=== PATIENT | male | born 1945 | race Caucasian/White ===

== ENCOUNTER → 2024-07-22 10:48 | Outpatient (CLI) | payer MEDICARE, MEDICAID, SELFPAY ==
--- NOTE | 2024-07-22 10:56 | DI.RAD.S_ITS ---
PROCEDURE: XR CHEST 2V INDICATIONS: COUGH TECHNIQUE: 2 views of the chest were acquired. COMPARISON: None. FINDINGS: Surgical changes and devices: None. Lungs and pleura: Lungs are clear. No pleural effusions or pneumothorax. Peribronchial cuffing. Mediastinum: Mediastinal contours are normal. Heart size is normal. Bones and chest wall: No suspicious bony abnormalities. Soft tissues appear unremarkable. IMPRESSION: Peribronchial cuffing, typically indicating infectious or inflammatory bronchitis. Dictated by: Rob Rey M.D. on 07/22/2024 at 13:07 Approved by: Rob Rey M.D. on 07/22/2024 at 13:07
== END ==
PROVIDERS: PCP Family Medicine; Referring Provider Registered Nurse; Visit Provider Registered Nurse
DX: J18.9 Pneumonia, unspecified organism (principal); J69.0 Pneumonitis due to inhalation of food and vomit; J96.01 Acute respiratory failure with hypoxia; R05.9 Cough, unspecified
CPT/HCPCS: 71046

== ENCOUNTER 2024-08-06 19:26 | Inpatient (IN) | payer MEDICARE, MEDICAID, SELFPAY ==
[2024-08-06] VITALS (67 sets, daily range): BP systolic 56–203; BP diastolic 36–127; PULSE 109–166; RESP 15–22; TEMP 36.6–38.1; O2SAT 90–99
--- NOTE | 2024-08-06 | DI.RAD.S_ITS ---
PROCEDURE: XR CHEST 1V INDICATIONS: NG Tube Placement TECHNIQUE: One view of the chest was acquired. COMPARISON: [facility], CR, XR CHEST 1V, 08/06/2024, 19:20. [facility], CR, XR CHEST 2V, 07/22/2024, 10:58. FINDINGS AND IMPRESSION: Enteric tube tip terminates near the gastroesophageal junction, consider further advancement ET tube tip terminates in the mid trachea. Bibasilar pulmonary consolidations. Dictated by: Kadeem Minor M.D. on 08/06/2024 at 21:33 Approved by: Kadeem Minor M.D. on 08/06/2024 at 21:34
--- NOTE | 2024-08-06 19:30 | ED.GENADULT ---
HPI - General Adult General Chief complaint: Unresponsive Stated complaint: Unresponsive Time Seen by Provider: 08/06/24 19:30 History of Present Illness HPI narrative: 78-year-old male arrived by EMS from [facility] where he was found by staff to be unresponsive, hypoxic, hypotensive, hypopnea, no CPR bystander was in progress, full code status, EMS found him to be hypoxic and hypotensive and in atrial fibrillation, epinephrine started through right-sided IO line, initial blood pressure 77/59, repeat blood pressure 107/62, atrial fibrillation 110 on the monitor noted, intubated x1 attempt 7.5 ETT successfully, 98% satsstats, arrival intubated, no post intubation sedation thus far. No compressions thus far. Pressor infusion through right IO line. Related Data Previous Rx's Medication Instructions Recorded divalproex 125 mg tablet,delayed 375 mg (3 x 125 mg) PO BID #180 06/23/22 release (Depakote) tabs acetaminophen 325 mg tablet 650 mg (2 x 325 mg) PO QID #240 06/27/23 tabs allopurinol 100 mg tablet 100 mg PO DAILY #30 tabs 06/27/23 apixaban 5 mg tablet (Eliquis) See Rx Instructions .Route 06/27/23 .COMPLEX #60 ea loratadine 10 mg tablet 10 mg PO DAILY #30 tabs 06/27/23 metoprolol tartrate 25 mg tablet 25 mg PO BID #60 tabs 06/27/23 quetiapine 100 mg tablet See Rx Instructions PO .COMPLEX 06/27/23 #120 tabs tamsulosin 0.4 mg capsule (Flomax) 0.8 mg (2 x 0.4 mg) PO BEDTIME #60 06/27/23 caps trazodone 50 mg tablet 50 mg PO BEDTIME #30 tabs 06/27/23 diltiazem HCl 30 mg tablet 30 mg PO QID #120 tabs 07/08/23 polyethylene glycol 3350 17 17 g PO DAILY PRN constipation 06/25/24 gram/dose oral powder #510 grams Allergies Allergy/AdvReac Type Severity Reaction Status Date / Time No Known Drug Allergies Allergy Verified 10/31/23 11:26 Patient History Medical History Schizophrenia in full remission with history of multiple episodes Surgical History Anesthesia Status post hernia repair (~2006) Status post appendectomy Family History Father History of heart disease Stroke Mother History of heart disease Stroke Grandfather History of heart disease Grandmother Stroke Grandfather History of heart disease Grandmother Cancer Social History household members: spouse Smoking Status: Never smoker alcohol intake: never Smoking Status: Never smoker Exam Initial Vital Signs Initial Vital Signs: Vital Signs Pulse Rate 122 H 08/06/24 19:28 intubated on arrival by EMS HENMO Head: normocephalic and atraumatic Face and sinus: face symmetric Eyes Pupils: PERRL Neck Neck: normal visual inspection and trachea midline Other: orotracheal ETT in place Chest Chest: normal inspection of the chest Resp Auscultation: no wheezes Other: breath sounds equal with bag mask ventilation thru prehospital orotracheal ETT Cardio Rate: tachycardic GI Inspection: non-distended Auscultation: normal bowel sounds Other: no abdominal bruising or distension Skin General: no rashes or lesions noted and No petechiae Extrem General: no pedal edema Other: GCS 3 on arrival, intubated, after prehospital Ketamine/Gaurav, paralytic in effect, no posturing, pupils round equal Procedures Central Line Placement Right Femoral: Patient Placed on Monitor/Pulse Ox: Yes MD Prep: mask, gown and gloves Central Line Prep: Povidone-Iodine 1% Ultrasound Used for Placement: Yes Central Line Lumen Inserted: triple Post Procedure: sutured in place, all ports aspirated, flushed, capped and sterile dressing applied Patient Tolerated Procedure: Well Complications: none Course Orders Ordered: Chlorhexidine Gluconate (Chlorhexidine Gluconate 15 Ml Cup) 15 ml PO 1018 [facility] Last Admin: 08/07/24 10:31 Dose: 15 ml Documented By: GISSELLE Enoxaparin Sodium (Enoxaparin 100 Mg/Ml Syringe) 95 mg SUBCUT BID [facility] Last Admin: 08/07/24 10:14 Dose: 95 mg Documented By: GISSELLE Fentanyl (Fentanyl 100 Mcg/2 Ml Inj) 50 mcg IV Q1H PRN PRN Reason: Pain, Moderate (4-6) Heparin Sodium (Porcine) (Heparin Flush (Cl/Picc/Mid-Line) 50 Unit/5 Ml Syringe) 50 unit IV PRN PRN PRN Reason: Flush Hydrocortisone (Hydrocortisone 100 Mg/2 Ml Vial) 50 mg IV Q6HR ZEESHAN Last Admin: 08/07/24 12:45 Dose: 50 mg NOREPINEPHRINE BITARTRATE/D5W (Levophed) 4 mg in 250 mls @ 35.55 mls/hr IV TITRATE ZEESHAN; Protocol Last Titration: 08/07/24 12:00 Dose: 0.15 mcg/kg/min, 53.326 mls/hr Documented By: Admin: 08/07/24 10:18 Dose: 0.1 mcg/kg/min, 35.55 mls/hr Documented By: Titration: 08/07/24 09:26 Dose: Infused Documented By: Titration: 08/07/24 08:38 Dose: 0.1 mcg/kg/min, 35.55 mls/hr Documented By: Titration: 08/07/24 07:00 Dose: 0.15 mcg/kg/min, 53.326 mls/hr Documented By: Titration: 08/07/24 06:45 Dose: 0 mcg/kg/min, 0 mls/hr Documented By: Admin: 08/07/24 04:31 Dose: 0.17 mcg/kg/min, 60.436 mls/hr Documented By: Titration: 08/07/24 04:25 Dose: Infused Documented By: Titration: 08/07/24 03:20 Dose: 0.17 mcg/kg/min, 60.436 mls/hr Documented By: Titration: 08/07/24 03:00 Dose: 0.2 mcg/kg/min, 71.101 mls/hr Documented By: Titration: 08/07/24 00:41 Dose: 0.15 mcg/kg/min, 53.326 mls/hr Documented By: Admin: 08/06/24 23:37 Dose: 0.1 mcg/kg/min, 35.55 mls/hr Documented By: Titration: 08/06/24 23:37 Dose: Infused Documented By: Titration: 08/06/24 22:55 Dose: 0.1 mcg/kg/min, 35.55 mls/hr Documented By: Titration: 08/06/24 22:33 Dose: 0.2 mcg/kg/min, 71.101 mls/hr Documented By: Titration: 08/06/24 22:12 Dose: 0.4 mcg/kg/min, 142.202 mls/hr Documented By: Titration: 08/06/24 22:05 Dose: 0.3 mcg/kg/min, 106.651 mls/hr Documented By: Titration: 08/06/24 22:00 Dose: 0.2 mcg/kg/min, 71.101 mls/hr Documented By: Titration: 08/06/24 21:32 Dose: 0 mcg/kg/min, 0 mls/hr Documented By: Titration: 08/06/24 21:00 Dose: 0.1 mcg/kg/min, 35.55 mls/hr Documented By: Titration: 08/06/24 20:45 Dose: 0.2 mcg/kg/min, 71.101 mls/hr Documented By: Titration: 08/06/24 20:40 Dose: 0.3 mcg/kg/min, 106.651 mls/hr Documented By: Titration: 08/06/24 20:09 Dose: 0.1 mcg/kg/min, 35.55 mls/hr Documented By: Titration: 08/06/24 19:50 Dose: 0.5 mcg/kg/min, 177.752 mls/hr Documented By: Admin: 08/06/24 19:45 Dose: 0.1 mcg/kg/min, 35.55 mls/hr Documented By: KH Ketamine HCl 100 mg/ Sodium (Chloride) 102 mls @ 6.12 mls/hr IV TITRATE PRN; Protocol PRN Reason: post intubat Propofol (Diprivan) 1,000 mg in 100 mls @ 2.844 mls/hr IV TITRATE ZEESHAN; Protocol Last Titration: 08/07/24 01:10 Dose: 10 mcg/kg/min, 5.688 mls/hr Documented By: Admin: 08/07/24 00:17 Dose: 5 mcg/kg/min, 2.844 mls/hr Documented By: CHRISTY Cefepime HCl 2 gm/ Sodium (Chloride) 100 mls @ 200 mls/hr IV Q12H [facility] Last Admin: 08/07/24 10:13 Dose: 200 mls/hr Documented By: GISSELLE Sodium Chloride (Normal Saline 0.9%) 1,000 mls @ 100 mls/hr IV CONT [facility] Last Admin: 08/07/24 08:29 Dose: 100 mls/hr Documented By: GISSELLE Vancomycin HCl (Vancomycin) 1,250 mg in 250 mls @ 250 mls/hr IV Q24H ZEESHAN Acetaminophen (Ofirmev) 1,000 mg in 100 mls @ 400 mls/hr IV Q6H PRN PRN Reason: Fever/Mild Pain (1-3) Last Admin: 08/07/24 10:29 Dose: 400 mls/hr Documented By: GISSELLE Dextrose (D10w) 100 mls @ 1,200 mls/hr IV PRN PRN PRN Reason: Hypoglycemia Thiamine HCl 200 mg/ Sodium (Chloride) 102 mls @ 408 mls/hr IV DAILY [facility] Last Admin: 08/07/24 12:45 Dose: 408 mls/hr Insulin Human Lispro (Insulin Lispro 100 Unit/Ml 3ml Vial) 0 unit SUBCUT Q6H [facility]; Protocol Last Admin: 08/07/24 10:35 Dose: 1 unit Documented By: GISSELLE Co-signed By: JJY Naloxone HCl (Naloxone 0.4 Mg/Ml Vial) 0.2 mg IV Q2MIN PRN PRN Reason: Opiate Reversal Pantoprazole Sodium (Pantoprazole 40 Mg Vial) 40 mg IV DAILY [facility] Last Admin: 08/07/24 10:14 Dose: 40 mg Documented By: GISSELLE Vancomycin HCl (Vancomycin Per Pharmacy) 1 request MISC NOW PRN PRN Reason: pneumonia Discontinued Medications Hydrocortisone (Hydrocortisone 100 Mg/2 Ml Vial) 100 mg IV NOW ONE Stop: 08/06/24 22:06 Last Admin: 08/06/24 22:17 Dose: 100 mg Documented By: CHRISTY Ceftriaxone Sodium 2,000 mg/ (Sodium Chloride) 100 mls @ 200 mls/hr IV NOW ONE Stop: 08/06/24 20:02 Last Infusion: 08/06/24 21:15 Dose: Infused Documented By: Admin: 08/06/24 20:45 Dose: 200 mls/hr Documented By: AB Sodium Chloride (Normal Saline 0.9%) 2,000 mls @ 1,000 mls/hr IV BOLUS ONE Stop: 08/06/24 22:03 Last Infusion: 08/06/24 21:31 Dose: Infused Documented By: Infusion: 08/06/24 20:57 Dose: 999 mls/hr Documented By: Infusion: 08/06/24 20:30 Dose: 999 mls/hr Documented By: Infusion: 08/06/24 20:09 Dose: 0 mls/hr Documented By: Admin: 08/06/24 19:50 Dose: 1,000 mls/hr Documented By: ARLEN POTASSIUM CHLORIDE IN WATER (Potassium Cl 10 Meq/100 Ml Karolyn) 10 meq in 100 mls @ 100 mls/hr IV Q1H ZEESHAN Stop: 08/07/24 00:44 Last Infusion: 08/07/24 01:34 Dose: Infused Documented By: Admin: 08/07/24 00:31 Dose: 100 mls/hr Documented By: Infusion: 08/07/24 00:28 Dose: Infused Documented By: Admin: 08/06/24 23:28 Dose: 100 mls/hr Documented By: Infusion: 08/06/24 23:28 Dose: Infused Documented By: Admin: 08/06/24 22:30 Dose: 100 mls/hr Documented By: Infusion: 08/06/24 22:26 Dose: Infused Documented By: Admin: 08/06/24 21:26 Dose: 100 mls/hr Documented By: Doxycycline Hyclate 100 mg/ (Sodium Chloride) 100 mls @ 100 mls/hr IV NOW ONE Stop: 08/06/24 21:07 Last Infusion: 08/06/24 22:21 Dose: Infused Documented By: Admin: 08/06/24 21:25 Dose: 100 mls/hr Documented By: Sodium Chloride (Normal Saline 0.9%) 1,000 mls @ 100 mls/hr IV CONT ZEESHAN Last Infusion: 08/07/24 08:30 Dose: Infused Documented By: Admin: 08/06/24 22:22 Dose: 100 mls/hr Documented By: CHRISTY Clindamycin Phosphate (Cleocin) 900 mg in 50 mls @ 50 mls/hr IV NOW ONE Stop: 08/07/24 00:11 Last Infusion: 08/07/24 00:16 Dose: Infused Documented By: Admin: 08/06/24 23:23 Dose: 50 mls/hr Documented By: CHRISTY Sodium Chloride (Normal Saline 0.9%) 1,000 mls @ 1,000 mls/hr IV BOLUS ONE Stop: 08/07/24 01:55 Last Infusion: 08/07/24 02:33 Dose: Infused Documented By: Admin: 08/07/24 01:07 Dose: 1,000 mls/hr Documented By: CHRISTY Vancomycin HCl/Dextrose (Vancomycin) 2,000 mg in 400 mls @ 200 mls/hr IV NOW [facility] Last Infusion: 08/07/24 05:06 Dose: Infused Documented By: Admin: 08/07/24 02:50 Dose: 200 mls/hr Documented By: CANDIDO Sodium Chloride (Normal Saline 0.9%) 500 mls @ 1,000 mls/hr IV BOLUS ONE Stop: 08/07/24 02:03 Last Admin: 08/07/24 01:50 Dose: Not Given Documented By: CT Vancomycin HCl/Dextrose (Vancomycin) 1,500 mg in 300 mls @ 200 mls/hr IV Q24H ZEESHAN Magnesium Sulfate (Magnesium Sulfate) 2 gm in 50 mls @ 25 mls/hr IV NOW ONE Stop: 08/07/24 12:17 Last Admin: 08/07/24 10:54 Dose: 25 mls/hr Documented By: GISSELLE Co-signed By: KATLYN Vital Signs Vital signs: Vital Signs - 8 hr 08/06/24 19:28 08/06/24 19:30 08/06/24 19:32 Temperature Pulse Rate 122 H 120 H Respiratory Rate 15 Blood Pressure 56/36 L Pulse Oximetry 99 Oxygen Delivery Method 08/06/24 19:32 08/06/24 19:36 08/06/24 19:42 Temperature 99.9 F H Pulse Rate 116 H 166 H Respiratory Rate 15 16 Blood Pressure 56/36 L 110/69 Pulse Oximetry 90 L 92 Oxygen Delivery Method Mechanical Ventilation 08/06/24 19:42 08/06/24 19:45 08/06/24 19:45 Temperature 100.6 F H Pulse Rate 115 H 116 H Respiratory Rate 16 16 Blood Pressure 73/46 L Pulse Oximetry 91 Oxygen Delivery Method 08/06/24 19:45 08/06/24 19:48 08/06/24 19:48 Temperature 100.0 F H 99.9 F H Pulse Rate 110 H 112 H Respiratory Rate 16 17 Blood Pressure 64/41 L Pulse Oximetry 90 L 92 Oxygen Delivery Method 08/06/24 19:51 08/06/24 19:51 08/06/24 19:54 Temperature 100.0 F H Pulse Rate 119 H Respiratory Rate 16 Blood Pressure 103/72 108/56 L Pulse Oximetry 94 Oxygen Delivery Method 08/06/24 19:54 08/06/24 19:57 08/06/24 19:57 Temperature 99.9 F H 99.7 F H Pulse Rate 130 H 140 H Respiratory Rate 16 16 Blood Pressure 126/65 Pulse Oximetry 93 95 Oxygen Delivery Method 08/06/24 20:00 08/06/24 20:00 08/06/24 20:04 Temperature 99.7 F H Pulse Rate 156 H Respiratory Rate 16 Blood Pressure 163/105 H 154/54 H Pulse Oximetry 97 Oxygen Delivery Method 08/06/24 20:04 08/06/24 20:06 08/06/24 20:06 Temperature 99.5 F 99.3 F Pulse Rate 136 H 165 H Respiratory Rate 16 16 Blood Pressure 105/56 L Pulse Oximetry 94 96 Oxygen Delivery Method 08/06/24 20:10 08/06/24 20:12 08/06/24 20:12 Temperature 99.3 F 99.3 F Pulse Rate 137 H 137 H Respiratory Rate 16 16 Blood Pressure 101/59 L Pulse Oximetry 97 96 Oxygen Delivery Method 08/06/24 20:15 08/06/24 20:15 08/06/24 20:18 Temperature 98.8 F 99.1 F Pulse Rate 134 H 141 H Respiratory Rate 16 19 Blood Pressure 100/50 L Pulse Oximetry 96 96 Oxygen Delivery Method 08/06/24 20:18 08/06/24 20:20 08/06/24 20:24 Temperature 99.1 F 98.8 F Pulse Rate 138 H 138 H Respiratory Rate 16 16 Blood Pressure 141/80 H Pulse Oximetry 95 97 Oxygen Delivery Method 08/06/24 20:24 08/06/24 20:25 08/06/24 20:27 Temperature 98.8 F 98.8 F Pulse Rate 138 H 137 H Respiratory Rate 16 16 Blood Pressure 156/81 H Pulse Oximetry 97 97 Oxygen Delivery Method 08/06/24 20:27 08/06/24 20:30 08/06/24 20:30 Temperature 98.4 F Pulse Rate 136 H Respiratory Rate 22 Blood Pressure 151/70 H 167/73 H Pulse Oximetry 98 Oxygen Delivery Method 08/06/24 20:32 08/06/24 20:32 08/06/24 20:34 Temperature 98.2 F Pulse Rate 133 H Respiratory Rate 16 Blood Pressure 167/83 H 149/67 H Pulse Oximetry 98 Oxygen Delivery Method 08/06/24 20:34 08/06/24 20:35 08/06/24 20:36 Temperature 98.2 F 98.2 F Pulse Rate 148 H 132 H Respiratory Rate 16 16 Blood Pressure 150/75 H Pulse Oximetry 98 98 Oxygen Delivery Method 08/06/24 20:36 08/06/24 20:39 08/06/24 20:39 Temperature 98.2 F 98.1 F Pulse Rate 130 H 132 H Respiratory Rate 16 16 Blood Pressure 152/75 H Pulse Oximetry 98 97 Oxygen Delivery Method 08/06/24 20:40 08/06/24 20:42 08/06/24 20:42 Temperature 98.1 F 98.1 F Pulse Rate 132 H 133 H Respiratory Rate 16 16 Blood Pressure 152/84 H Pulse Oximetry 96 96 Oxygen Delivery Method 08/06/24 20:45 08/06/24 20:45 08/06/24 20:48 Temperature 98.1 F Pulse Rate 130 H Respiratory Rate 16 Blood Pressure 170/77 H 157/74 H Pulse Oximetry 96 Oxygen Delivery Method 08/06/24 20:48 08/06/24 20:50 08/06/24 20:51 Temperature 98.1 F 98.1 F Pulse Rate 130 H 132 H Respiratory Rate 16 16 Blood Pressure 124/68 Pulse Oximetry 96 95 Oxygen Delivery Method 08/06/24 20:51 08/06/24 20:54 08/06/24 20:54 Temperature 98.1 F 98.1 F Pulse Rate 129 H 136 H Respiratory Rate 16 Blood Pressure 135/70 Pulse Oximetry 95 95 Oxygen Delivery Method 08/06/24 20:55 08/06/24 20:57 08/06/24 20:57 Temperature 98.1 F 98.1 F Pulse Rate 128 H 126 H Respiratory Rate 16 Blood Pressure 125/72 Pulse Oximetry 94 95 Oxygen Delivery Method 08/06/24 21:00 08/06/24 21:00 08/06/24 21:03 Temperature 98.1 F 97.9 F Pulse Rate 138 H 132 H Respiratory Rate 16 16 Blood Pressure 126/77 Pulse Oximetry 95 94 Oxygen Delivery Method 08/06/24 21:03 08/06/24 21:05 08/06/24 21:06 Temperature 97.9 F Pulse Rate 124 H Respiratory Rate 16 Blood Pressure 147/71 H 155/70 H Pulse Oximetry 94 Oxygen Delivery Method 08/06/24 21:06 08/06/24 21:09 08/06/24 21:09 Temperature 97.9 F 97.9 F Pulse Rate 122 H 138 H Respiratory Rate 16 16 Blood Pressure 130/64 Pulse Oximetry 94 95 Oxygen Delivery Method Mechanical Ventilation 08/06/24 21:10 08/06/24 21:15 08/06/24 21:18 Temperature 97.9 F 97.9 F 97.9 F Pulse Rate 121 H 118 H 119 H Respiratory Rate 16 16 16 Blood Pressure Pulse Oximetry 94 95 95 Oxygen Delivery Method 08/06/24 21:18 08/06/24 21:20 08/06/24 21:25 Temperature 97.9 F 97.9 F Pulse Rate 114 H 114 H Respiratory Rate 16 16 Blood Pressure 125/78 Pulse Oximetry 94 95 Oxygen Delivery Method 08/06/24 21:30 08/06/24 21:30 08/06/24 21:45 Temperature 97.9 F 98.1 F Pulse Rate 112 H 109 H Respiratory Rate 16 16 Blood Pressure 157/111 H Pulse Oximetry 95 92 Oxygen Delivery Method Mechanical Ventilation 08/06/24 21:49 08/06/24 21:49 08/06/24 22:00 Temperature 98.1 F Pulse Rate 109 H Respiratory Rate 16 Blood Pressure 75/53 L 86/64 L Pulse Oximetry 93 Oxygen Delivery Method 08/06/24 22:00 08/06/24 22:15 08/06/24 22:15 Temperature 98.1 F 98.1 F Pulse Rate 135 H 141 H Respiratory Rate 16 16 Blood Pressure 98/77 Pulse Oximetry 95 95 Oxygen Delivery Method Mechanical Ventilation 08/06/24 22:30 08/06/24 22:31 08/06/24 22:31 Temperature 98.2 F 98.2 F Pulse Rate 126 H 140 H Respiratory Rate 16 16 Blood Pressure 200/127 H Pulse Oximetry 94 94 Oxygen Delivery Method 08/06/24 22:33 08/06/24 22:33 08/06/24 22:35 Temperature 98.2 F Pulse Rate 128 H Respiratory Rate 16 Blood Pressure 203/110 H 186/101 H Pulse Oximetry 94 Oxygen Delivery Method 08/06/24 22:35 08/06/24 22:40 08/06/24 22:40 Temperature 98.2 F 98.2 F Pulse Rate 144 H 127 H Respiratory Rate 16 16 Blood Pressure 162/107 H Pulse Oximetry 94 93 Oxygen Delivery Method 08/06/24 22:45 08/06/24 22:45 08/06/24 22:50 Temperature 98.2 F 98.4 F Pulse Rate 145 H 125 H Respiratory Rate 16 16 Blood Pressure 172/97 H Pulse Oximetry 93 93 Oxygen Delivery Method 08/06/24 22:50 08/06/24 22:55 08/06/24 22:55 Temperature 98.4 F Pulse Rate 140 H Respiratory Rate 16 Blood Pressure 187/112 H 160/77 H Pulse Oximetry 93 Oxygen Delivery Method 08/06/24 23:00 08/06/24 23:00 08/06/24 23:05 Temperature 98.4 F Pulse Rate 119 H Respiratory Rate 16 Blood Pressure 152/90 H 123/82 Pulse Oximetry 93 Oxygen Delivery Method 08/06/24 23:05 08/06/24 23:15 08/06/24 23:16 Temperature 98.6 F 98.6 F Pulse Rate 141 H 132 H Respiratory Rate 16 17 Blood Pressure 116/91 H Pulse Oximetry 92 94 Oxygen Delivery Method 08/06/24 23:16 08/06/24 23:30 08/06/24 23:32 Temperature 98.6 F 98.8 F Pulse Rate 135 H 131 H Respiratory Rate 19 20 Blood Pressure 128/71 Pulse Oximetry 93 93 Oxygen Delivery Method 08/06/24 23:32 08/06/24 23:45 08/06/24 23:45 Temperature 98.8 F 99.0 F Pulse Rate 130 H 138 H Respiratory Rate 20 17 Blood Pressure 96/58 L Pulse Oximetry 93 93 Oxygen Delivery Method 08/07/24 00:00 08/07/24 00:01 08/07/24 00:01 Temperature 99.1 F 99.0 F Pulse Rate 131 H 142 H Respiratory Rate 18 20 Blood Pressure 150/99 H Pulse Oximetry 94 93 Oxygen Delivery Method 08/07/24 00:15 08/07/24 00:21 08/07/24 00:21 Temperature 99.1 F 99.3 F Pulse Rate 110 H 111 H Respiratory Rate 17 19 Blood Pressure 98/67 Pulse Oximetry 94 92 Oxygen Delivery Method 08/07/24 00:30 08/07/24 00:31 08/07/24 00:31 Temperature 99.3 F 99.3 F Pulse Rate 110 H 110 H Respiratory Rate 18 17 Blood Pressure 98/66 Pulse Oximetry 96 95 Oxygen Delivery Method 08/07/24 00:40 08/07/24 00:40 Temperature 99.5 F Pulse Rate 107 H Respiratory Rate 16 Blood Pressure 79/60 L Pulse Oximetry 96 Oxygen Delivery Method Medical Decision Making Lab Data Lab results reviewed: Yes I reviewed the patient's lab results. Lab results narrative: White blood cell count 06013, hemoglobin 11.7, platelets adequate. BUN 18 with creatinine 1.59. Glucose 181. Serum CO2 13. Serum potassium 3.0 low. Sodium 126 with glucose 181 noted. Urinalysis negative. UDS negative. ABG initial vent settings noted. Troponin 0.051 indeterminate. 08/07/24 07:50 08/07/24 07:50 Labs: Lab Results 08/06/24 08/06/24 08/06/24 Range/Units 19:39 19:39 19:50 WBC 16.9 H (4.5-11.0) X10^3/uL RBC 4.00 L (4.5-5.9) X10^6/uL Hgb 11.7 L (13.5-17.5) g/dL Hct 36.7 L (41-53) % MCV 91.6 (80-100) fL MCH 29.3 (26-34) PG MCHC 32.0 (30-36) % RDW 15.2 H (11.6-14.8) % Plt Count 232 (150-400) X10^3/uL Neut % (Auto) Not Reportable Lymph % (Auto) Not Reportable [place] % (Auto) Not Reportable Eos % (Auto) Not Reportable Baso % (Auto) Not Reportable Lymph # (Auto) Not Reportable [place] # (Auto) Not Reportable Baso # (Auto) Not Reportable Total Counted 100 Seg Neutrophils % 55.0 (38-70) % Band Neutrophils % 15.0 H (3-7) % Lymphocytes % (Manual) 20.0 L (25-45) % Monocytes % (Manual) 4.0 (2-11) % Eosinophils % (Manual) 2.0 (2-4) % Metamyelocytes % 4.0 H (-0) % Neutrophils # (Manual) 78145 H (3089-0811) /uL Nucleated RBCs 1 H ( - 0) #/Diff RBC Morphology See below Anisocytosis 1+ H ABG Sample Site ABG pH (7.35-7.45) ABG pCO2 (35-45) mmHg ABG pO2 (80-100) mmHg ABG HCO3 (23-27) mmol/L ABG Total CO2 (23-27) mmol/L ABG O2 Saturation (95-100) % ABG Base Excess (-2-3) mmol/L Leonel Test O2 Delivery Device Sodium 126 L (137-145) mmol/L Potassium 3.0 L (3.4-5.1) mmol/L Chloride 95 L (98-107) mmol/L Carbon Dioxide 13 L (22-32) mmol/L BUN 18 (9-20) mg/dL Creatinine 1.59 H (0.66-1.25) mg/dL Estimated GFR 44 L (>60) mL/min BUN/Creatinine Ratio 11.3 (6-22) Glucose 181 H (80-110) mg/dL Lactate (0.7-2.1) mmol/L Calcium 7.0 L (8.4-10.2) mg/dL Total Bilirubin 0.5 (0.2-1.3) mg/dL AST 48 (17-59) IU/L ALT 35 (<50) IU/L Alkaline Phosphatase 46 (38-126) U/L Total Creatine Kinase 617 H (55-170) U/L Troponin I 0.051 H (0.01-0.034) ng/mL Total Protein 5.7 L (6.3-8.2) g/dL Albumin 2.4 L (3.5-5.0) g/dL Globulin 3.3 (1.7-4.1) g/dL Albumin/Globulin Ratio 0.7 L (1.0-2.8) Lipase 91 (23-300) U/L Urine Color Yellow Urine Appearance Clear Urine pH 6.5 Normal (4.5-8.0) Ur Specific [place] 1.010 (1.000-1.035) Urine Protein Negative (Negative) Urine Glucose (UA) Negative (Negative) g/dL Urine Ketones Negative (NEGATIVE) Urine Occult Blood Negative (Negative) Urine Nitrate Negative (Negative) Urine Bilirubin Negative (NEGATIVE) Urine Urobilinogen 0.2 (0.2) E.U./dL Ur Leukocyte Esterase Negative (NEGATIVE) Urine RBC None seen (0-5/HPF) Urine WBC None seen (0-5/HPF) Ur Squamous Epith Cells None seen (0-5/HPF) Urine Bacteria None seen (None) Ur Culture Indicated? Cult not indicated Vol Urine Centrifuged 10ml (spun) U Opiates 300ng/mL cut Negative (Negative) Ur Oxycodone Screen Negative (Negative) Urine Methadone Screen Negative (Negative) Ur Barbiturates Screen Negative (Negative) U Tricyclic Antidepress Negative (Negative) Ur Phencyclidine Scrn Negative (Negative) Ur Amphetamines Screen Negative (Negative) U Methamphetamines Scrn Negative (Negative) Ur MDMA Scrn (Ecstasy) Negative (Negative) U Benzodiazepines Scrn Negative (Negative) Urine Cocaine Screen Negative (Negative) U Marijuana (THC) Screen Negative (Negative) Urine Specific [place] Normal (Normal) Ur Creatinine Normal (Normal) 08/06/24 08/06/24 08/06/24 Range/Units 20:03 22:53 23:05 WBC (4.5-11.0) X10^3/uL RBC (4.5-5.9) X10^6/uL Hgb (13.5-17.5) g/dL Hct (41-53) % MCV (80-100) fL MCH (26-34) PG MCHC (30-36) % RDW (11.6-14.8) % Plt Count (150-400) X10^3/uL Neut % (Auto) Lymph % (Auto) [place] % (Auto) Eos % (Auto) Baso % (Auto) Lymph # (Auto) [place] # (Auto) Baso # (Auto) Total Counted Seg Neutrophils % (38-70) % Band Neutrophils % (3-7) % Lymphocytes % (Manual) (25-45) % Monocytes % (Manual) (2-11) % Eosinophils % (Manual) (2-4) % Metamyelocytes % (-0) % Neutrophils # (Manual) (3801-2009) /uL Nucleated RBCs ( - 0) #/Diff RBC Morphology Anisocytosis ABG Sample Site Left radial ABG pH 7.21 L* (7.35-7.45) ABG pCO2 41.5 (35-45) mmHg ABG pO2 95 (80-100) mmHg ABG HCO3 17 L (23-27) mmol/L ABG Total CO2 16 L (23-27) mmol/L ABG O2 Saturation 96 (95-100) % ABG Base Excess -11.0 L (-2-3) mmol/L Leonel Test Positive O2 Delivery Device Adult ventilator Sodium (137-145) mmol/L Potassium (3.4-5.1) mmol/L Chloride (98-107) mmol/L Carbon Dioxide (22-32) mmol/L BUN (9-20) mg/dL Creatinine (0.66-1.25) mg/dL Estimated GFR (>60) mL/min BUN/Creatinine Ratio (6-22) Glucose (80-110) mg/dL Lactate 6.3 H* (0.7-2.1) mmol/L Calcium (8.4-10.2) mg/dL Total Bilirubin (0.2-1.3) mg/dL AST (17-59) IU/L ALT (<50) IU/L Alkaline Phosphatase (38-126) U/L Total Creatine Kinase (55-170) U/L Troponin I 0.066 H (0.01-0.034) ng/mL Total Protein (6.3-8.2) g/dL Albumin (3.5-5.0) g/dL Globulin (1.7-4.1) g/dL Albumin/Globulin Ratio (1.0-2.8) Lipase (23-300) U/L Urine Color Urine Appearance Urine pH (4.5-8.0) Ur Specific [place] (1.000-1.035) Urine Protein (Negative) Urine Glucose (UA) (Negative) g/dL Urine Ketones (NEGATIVE) Urine Occult Blood (Negative) Urine Nitrate (Negative) Urine Bilirubin (NEGATIVE) Urine Urobilinogen (0.2) E.U./dL Ur Leukocyte Esterase (NEGATIVE) Urine RBC (0-5/HPF) Urine WBC (0-5/HPF) Ur Squamous Epith Cells (0-5/HPF) Urine Bacteria (None) Ur Culture Indicated? Vol Urine Centrifuged U Opiates 300ng/mL cut (Negative) Ur Oxycodone Screen (Negative) Urine Methadone Screen (Negative) Ur Barbiturates Screen (Negative) U Tricyclic Antidepress (Negative) Ur Phencyclidine Scrn (Negative) Ur Amphetamines Screen (Negative) U Methamphetamines Scrn (Negative) Ur MDMA Scrn (Ecstasy) (Negative) U Benzodiazepines Scrn (Negative) Urine Cocaine Screen (Negative) U Marijuana (THC) Screen (Negative) Urine Specific [place] (Normal) Ur Creatinine (Normal) Point of Care Testing Glucose POC 155 Point of care testing: Point of Care Testing Glucose POC 155 Imaging Data Chest x-ray: Radiologist's Impression: [address] [address] XRay Report Signed Patient: Stephen Francis MR#: [id number] : 1945 Acct:[id number] Age/Sex: 78 / M Date of Service: 08/06/24 Loc: ED Accession Number: [id number] Procedure: XR chest 1V Ordering Provider: Fadi Sahni MD PROCEDURE: XR CHEST 1V INDICATIONS: chest pain TECHNIQUE: One view of the chest was acquired. COMPARISON: [facility], , XR CHEST 2V, 07/22/2024, 10:58. FINDINGS AND IMPRESSION: ET tube projects over the mid trachea on this study. Suspect left lung base opacity. Low lung volumes. CT findings are separately dictated. Cardiomegaly and aortic calcifications. Degenerative osseous changes. Dictated by: Kadeem Minor M.D. on 08/06/2024 at 21:22 Approved by: Kadeem Minor M.D. on 08/06/2024 at 21:23 CT scan - head: Radiologist's Impression: [address] [address] [address] Scan Report Signed Patient: Stephen Francis MR#: [id number] : 1945 Acct:[id number] Age/Sex: 78 / M Date of Service: 08/06/24 Loc: ED Accession Number: [id number] Procedure: CT head/brain wo con Ordering Provider: Fadi Sahni MD PROCEDURE: CT HEAD/BRAIN WO CON INDICATIONS: unresponsive TECHNIQUE: Noncontrast 4.5 mm thick angled axial sections acquired from the foramen magnum to the vertex, with coronal and sagittal reformats. For radiation dose reduction, the following was used: automated exposure control, adjustment of mA and/or kV according to patient size. COMPARISON: None. FINDINGS: Image quality: Diagnostic CSF spaces: Basal cisterns are patent. Lateral ventricles are symmetric. Volume: Vascular calcifications. Periventricular white matter disease is commonly seen with chronic microangiopathy. Volume loss is present. These findings are moderate to severe Brain: No acute hematoma or gross loss of vang-white differentiation Craniofacial structures: Partially seen ET tube and enteric tube IMPRESSION: No acute intracranial pathology. If there is high concern for parenchymal pathology, consider further evaluation with MRI. Dictated by: Kadeem Minor M.D. on 08/06/2024 at 20:51 Approved by: Kadeem Minor M.D. on 08/06/2024 at 20:52 CT angio chest abdomen and pelvis.: Radiologist's Impression: Close Chest X-Ray 08/06/[address] (Signed) Iván,Kadeem - 08/06/24 Chest/Abdomen/Pelvis CTA (Signed) Iván,Kadeem - 08/06/[address] (Signed) Iván,[facility] - 08/06/24 Chest X-Ray (Signed) Iván,[facility] - 08/06/24 Chest X-Ray (Signed) Iván,[facility] - 08/06/24 [place] [address] CT Scan Report Signed Patient: Stephen Francis MR#: [id number] : 1945 Acct:[id number] Age/Sex: 78 / M Date of Service: 08/06/24 Loc: ED Accession Number: [id number] Procedure: CT angio chest abdomen pelvis Ordering Provider: Fadi Sahni MD PROCEDURE: CT ANGIO CHEST ABDOMEN PELVIS INDICATIONS: unresponsive TECHNIQUE: Precontrast 5 mm thick sections acquired from the lung apices to the iliac crests. After the administration of intravenous contrast, 2.5 mm thick sections again acquired from the lung apices to the iliac crests. Maximum intensity projection (MIP) oblique sagittal and coronal reformats were then acquired. For radiation dose reduction, the following was used: automated exposure control. COMPARISON: None. FINDINGS: Image quality: Diagnostic Lungs and pleura: There are bibasilar consolidations and atelectasis. ET tube terminates in the mid trachea Mediastinum, heart, and esophagus: No intramural hematoma on pre contrast images. Cardiomegaly, coronary, and annular cardiac calcifications. There is no central pulmonary embolism. There are aortic valve calcifications. Atherosclerotic calcifications. No acute aortic dissection. The ascending aorta/aortic root is not well assessed on this non gated study, there is focal irregularity at the left subclavian artery. (.) Prominent mediastinal lymph nodes are seen, for example right paratracheal node measures 1 cm in short axis. Attention on follow-up. Debris is seen in the airways. Chest wall and thyroid: Unremarkable chest wall and thyroid Liver: Right lower lobe cysts. Subcentimeter lesions are too small to characterize, usually also cysts. No laceration or hematoma Gallbladder and biliary system: Unremarkable, nondilated Pancreas: No ductal dilation Spleen: no capsular hematoma or lacerations Adrenals: Hyperenhancing adrenal glands Kidneys: Mild bilateral pelviectasis and ureter ectasia. Surrounding edematous fat stranding is seen. No solid renal mass Vessels and lymph nodes: Atherosclerotic calcifications. No abdominal aortic aneurysm. No pathologic lymph nodes by size criteria. The major mesenteric arteries and renal arteries appear patent. The pelvic arteries appear patent. A right central line is seen, with contrast obscuring the tip, which is likely in the right external iliac vein Bowel and peritoneum: The enteric tube is seen in the distal esophagus. The stomach is moderately distended filled with fluid. No small bowel obstruction. No drainable abscess or ascites. There is a moderate rectal stool ball. Small amount pelvic free fluid is nonspecific. Colonic diverticula are present. Normal diameter appendix Body wall: Small fat containing umbilical hernia with a wide neck. Pelvis: Smith is in place. Bladder wall thickening with perivesicular edematous fat stranding. There is mild iatrogenic air in the venous system from the right central line. Bones: There are degenerative changes. No acute or suspicious osseous findings. Age-indeterminate height loss at L1. IMPRESSION: No central pulmonary embolism. No intramural hematoma or aortic dissection. Bibasilar consolidations likely pneumonia. Debris is seen in the airways. Aspiration is also possible. Borderline enlarged mediastinal lymph nodes. Consider future imaging surveillance to assess for resolution. ET tube terminates in the mid trachea. Enteric tube terminates in the distal esophagus. Moderately distended stomach. Nonspecific small amount pelvic free fluid. Renal pelvic and ureter ectasia with mild edematous surrounding fat stranding. Bladder wall thickening with Smith in place. Correlate urinalysis for infection. There is no obstructing calcified stone identified. Hyperenhancing adrenals, correlate with any recent hypotension episodes. Incidentally noted focal irregularity in the left subclavian artery, which may represent irregular plaque versus a small dissection. Other findings above. Dictated by: Kadeem Minor M.D. on 08/06/2024 at 21:23 Approved by: Kadeem Minor M.D. on 08/06/2024 at 21:33 CT - cervical spine: Radiologist's Impression: Close Chest X-Ray 08/06/[address] (Signed) Iván,[facility] - 08/06/24 Chest/Abdomen/Pelvis CTA (Signed) Iván,Kadeem - 08/06/[address] (Signed) Iván,[facility] - 08/06/24 Chest X-Ray (Signed) Iván,[facility] - 08/06/24 Chest X-Ray (Signed) Iván,[facility] - 08/06/24 [place] [address] CT Scan Report Signed Patient: Stephen Francis MR#: [id number] : 1945 Acct:[id number] Age/Sex: 78 / M Date of Service: 08/06/24 Loc: ED Accession Number: [id number] Procedure: CT cervical spine wo con Ordering Provider: Fadi Sahni MD PROCEDURE: CT CERVICAL SPINE WO CON INDICATIONS: unresponsive TECHNIQUE: Noncontrast 3 mm thick sections acquired from the skull base to the T4 level. Sagittal and coronal reformats were then constructed. For radiation dose reduction, the following was used: automated exposure control, adjustment of mA and/or kV according to patient size. COMPARISON: None. FINDINGS: Image quality: Diagnostic Bones: There are moderate degenerative changes of the lumbar spine. Vertebral body heights are well maintained. There is no traumatic subluxation. Soft tissues: Partially seen ET tube enteric tube. Vascular calcifications. IMPRESSION: No displaced fracture or traumatic subluxation. Moderate to severe spondylosis. If there is high concern for further derangement, consider MRI evaluation. Dictated by: Kadeem Minor M.D. on 08/06/2024 at 20:53 Approved by: Kadeem Minor M.D. on 08/06/2024 at 20:54 ECG Data Attestation: I personally reviewed and interpreted this ECG as follows: Interpretation: Sinus tachycardia with premature atrial come plexus. Ventricular rate 123. No obvious ST segment elevation or depression changes. UT 160, QRS 84, QTC 449. MDM Narrative Medical decision making narrative: 78-year-old male found unresponsive at care home facility by staff, low blood pressure, low sats, intubated in the field with rocuronium/ketamine single attempt, breath sounds equal, no CPR, epinephrine started through peripheral IO in the field during EMS transport, blood pressure improved 70 systolic to 100 systolic on arrival, unresponsive, pupils equal round and reactive, no obvious craniofacial trauma. No obvious truncal trauma. Norepinephrine added, pre-hospital epinephrine still infusing. Right groin central venous access. Blood cultures sent from central line. IV ceftriaxone 2 g empiric after blood cultures. Right femoral vein central line placed by Dr. Motta. Ports flushed, aspirate easily. Initial vent settings AC 16, tidal volume 600, peep 5, 100% FiO2. PH 7.208, pCO2 41.6, PaO2 94.8. Smith placed, clear urine noted. CT/CTA imaging studies pending. CT Head atrophy changes, my wet read. CT chest abdomen and pelvis, possible bilateral posterior infiltrates my view. IV ceftriaxone given prior, will add IV doxycycline. Potassium low, IV repletion initiated K-Riders. Await CT/CTA radiology reads. Chest x-ray, ET tube mid trachea, left lung base opacity, cardiomegaly. See radiology report. CT brain noncontrast. No acute changes. See radiology report. CT cervical spine noncontrast. No acute changes, moderate to severe spondylosis noted. See radiology report. CT angiogram chest abdomen and pelvis. Impressions: ?No central pulmonary embolism. No intramural hematoma or aortic dissection. Bibasilar consolidations likely pneumonia. Debris is seen in the airways. Aspiration is also possible. Borderline enlarged mediastinal lymph nodes. Consider future imaging surveillance to assess for resolution. ET tube terminates in the mid trachea. Enteric tube terminates in the distal esophagus. Moderately distended stomach. Nonspecific small amount of pelvic free fluid. Renal pelvic in ureteral ectasia with mild edematous surrounding fat stranding. Bladder wall thickening with Smith in place. Correlate urinalysis for infection. There is no obstructing calcified stone identified. Hyperenhancing adrenals, correlate with any recent hypotensive in episodes. Incidentally noted focal irregular in the left subclavian artery, which may represent irregular plaque versus a small dissection.? See radiology report. Bibasilar consolidations had been noted on my view, ceftriaxone given empirically after blood cultures, add IV doxycycline. IV clindamycin also added, possible aspiration. Labile blood pressure, on norepinephrine 0.5 his systolic blood pressure was 150, had been weaned down to 0.1 but now his blood pressure is 80, titrating backup. Still on norepinephrine infusion. Potassium supplements are infusing, fluid bolus given, maintenance IV fluids. Adrenal hyperemia and recent hypotension noted, will give IV hydrocortisone 100 mg. 2220, initial troponin 0.05 indeterminate range, repeat troponin pending. EKG still to be performed. Lactate 6 elevated, pneumonia identified, pulmonary septic shock suspected. No aortic or GI or internal or external hemorrhage identified. EKG shows sinus tachycardia with PACs. No obvious ST segment elevation or depression changes. Repeat interval troponin 0.07 still in the indeterminate range. We will query hospitalist regarding disposition. 0045, case discussed with hospitalist Dr. Epperson, accepts patient for admission to ICU inpatient Critical Care Time Critical Care Time Critical Care Time: Yes Total Critical Care Time: 45 Attestation: The high probability of a clinically significant, sudden or life threatening deterioration of the [cardiopulmonary, cerebrovascular, neurologic, abdominopelvic, gastrointestinal] system(s) required my full and direct attention, intervention and personal management. The aggregate critical care time was [45] minutes. This time is in addition to time spent performing reported procedures but includes the following: [x] Data Review and interpretation [x] Patient assessment and monitoring of vital signs [x] Documentation [x] Medication orders and management Discharge Plan Departure Patient Disposition: Admitted As Inpatient Clinical Impression: Hypotension, Septic shock Altered mental status Qualifiers: Altered mental status type: unspecified Qualified Code(s): R41.82 - Altered mental status, unspecified Pneumonia Qualifiers: Pneumonia type: due to unspecified organism Laterality: unspecified laterality Lung location: unspecified part of lung Qualified Code(s): J18.9 - Pneumonia, unspecified organism Admit Date/Time: 08/07/24 00:52 Admit Provider: Koko Urban
--- NOTE | 2024-08-06 19:35 | DI.CT.S_ITS ---
PROCEDURE: CT HEAD/BRAIN WO CON INDICATIONS: unresponsive TECHNIQUE: Noncontrast 4.5 mm thick angled axial sections acquired from the foramen magnum to the vertex, with coronal and sagittal reformats. For radiation dose reduction, the following was used: automated exposure control, adjustment of mA and/or kV according to patient size. COMPARISON: None. FINDINGS: Image quality: Diagnostic CSF spaces: Basal cisterns are patent. Lateral ventricles are symmetric. Volume: Vascular calcifications. Periventricular white matter disease is commonly seen with chronic microangiopathy. Volume loss is present. These findings are moderate to severe Brain: No acute hematoma or gross loss of vang-white differentiation Craniofacial structures: Partially seen ET tube and enteric tube IMPRESSION: No acute intracranial pathology. If there is high concern for parenchymal pathology, consider further evaluation with MRI. Dictated by: Kadeem Minor M.D. on 08/06/2024 at 20:51 Approved by: Kadeem Minor M.D. on 08/06/2024 at 20:52
--- NOTE | 2024-08-06 19:36 | DI.CT.S_ITS ---
PROCEDURE: CT ANGIO CHEST ABDOMEN PELVIS INDICATIONS: unresponsive TECHNIQUE: Precontrast 5 mm thick sections acquired from the lung apices to the iliac crests. After the administration of intravenous contrast, 2.5 mm thick sections again acquired from the lung apices to the iliac crests. Maximum intensity projection (MIP) oblique sagittal and coronal reformats were then acquired. For radiation dose reduction, the following was used: automated exposure control. COMPARISON: None. FINDINGS: Image quality: Diagnostic Lungs and pleura: There are bibasilar consolidations and atelectasis. ET tube terminates in the mid trachea Mediastinum, heart, and esophagus: No intramural hematoma on pre contrast images. Cardiomegaly, coronary, and annular cardiac calcifications. There is no central pulmonary embolism. There are aortic valve calcifications. Atherosclerotic calcifications. No acute aortic dissection. The ascending aorta/aortic root is not well assessed on this non gated study, there is focal irregularity at the left subclavian artery. (.) Prominent mediastinal lymph nodes are seen, for example right paratracheal node measures 1 cm in short axis. Attention on follow-up. Debris is seen in the airways. Chest wall and thyroid: Unremarkable chest wall and thyroid Liver: Right lower lobe cysts. Subcentimeter lesions are too small to characterize, usually also cysts. No laceration or hematoma Gallbladder and biliary system: Unremarkable, nondilated Pancreas: No ductal dilation Spleen: no capsular hematoma or lacerations Adrenals: Hyperenhancing adrenal glands Kidneys: Mild bilateral pelviectasis and ureter ectasia. Surrounding edematous fat stranding is seen. No solid renal mass Vessels and lymph nodes: Atherosclerotic calcifications. No abdominal aortic aneurysm. No pathologic lymph nodes by size criteria. The major mesenteric arteries and renal arteries appear patent. The pelvic arteries appear patent. A right central line is seen, with contrast obscuring the tip, which is likely in the right external iliac vein Bowel and peritoneum: The enteric tube is seen in the distal esophagus. The stomach is moderately distended filled with fluid. No small bowel obstruction. No drainable abscess or ascites. There is a moderate rectal stool ball. Small amount pelvic free fluid is nonspecific. Colonic diverticula are present. Normal diameter appendix Body wall: Small fat containing umbilical hernia with a wide neck. Pelvis: Smith is in place. Bladder wall thickening with perivesicular edematous fat stranding. There is mild iatrogenic air in the venous system from the right central line. Bones: There are degenerative changes. No acute or suspicious osseous findings. Age-indeterminate height loss at L1. IMPRESSION: No central pulmonary embolism. No intramural hematoma or aortic dissection. Bibasilar consolidations likely pneumonia. Debris is seen in the airways. Aspiration is also possible. Borderline enlarged mediastinal lymph nodes. Consider future imaging surveillance to assess for resolution. ET tube terminates in the mid trachea. Enteric tube terminates in the distal esophagus. Moderately distended stomach. Nonspecific small amount pelvic free fluid. Renal pelvic and ureter ectasia with mild edematous surrounding fat stranding. Bladder wall thickening with Smith in place. Correlate urinalysis for infection. There is no obstructing calcified stone identified. Hyperenhancing adrenals, correlate with any recent hypotension episodes. Incidentally noted focal irregularity in the left subclavian artery, which may represent irregular plaque versus a small dissection. Other findings above. Dictated by: Kadeem Minor M.D. on 08/06/2024 at 21:23 Approved by: Kadeem Minor M.D. on 08/06/2024 at 21:33
--- NOTE | 2024-08-06 19:41 | DI.CT.S_ITS ---
PROCEDURE: CT CERVICAL SPINE WO CON INDICATIONS: unresponsive TECHNIQUE: Noncontrast 3 mm thick sections acquired from the skull base to the T4 level. Sagittal and coronal reformats were then constructed. For radiation dose reduction, the following was used: automated exposure control, adjustment of mA and/or kV according to patient size. COMPARISON: None. FINDINGS: Image quality: Diagnostic Bones: There are moderate degenerative changes of the lumbar spine. Vertebral body heights are well maintained. There is no traumatic subluxation. Soft tissues: Partially seen ET tube enteric tube. Vascular calcifications. IMPRESSION: No displaced fracture or traumatic subluxation. Moderate to severe spondylosis. If there is high concern for further derangement, consider MRI evaluation. Dictated by: Kadeem Minor M.D. on 08/06/2024 at 20:53 Approved by: Kadeem Minor M.D. on 08/06/2024 at 20:54
[2024-08-06] MEDS: NOREPINEPHRINE BITARTRATE/D5W 4 MG/250 ML PLAST..BAG 35.55 MG IV ×2 (19:45→23:37)
[2024-08-06] MEDS: SODIUM CHLORIDE 0.9% 2,000 ML 1000 ML IV (19:50)
[2024-08-06 19:57] LABS: Ur Creatinine Normal (Normal); Ur Specific Gravity Normal (Normal); Urine pH Normal (Normal)
[2024-08-06 19:58] LABS: Urine Amphetamines Negative (Negative); Urine Barbiturates Negative (Negative); Urine Benzodiazepines Negative (Negative); Urine Cocaine Negative (Negative); Urine MDMA Negative (Negative); Urine Methadone Negative (Negative); Urine Methamphetamines Negative (Negative); Urine Opiates Negative (Negative); Urine Oxycodone Negative (Negative); Urine Phencyclidine Negative (Negative); Urine THC Negative (Negative); Urine Tricyclic Antidepressant Negative (Negative)
--- NOTE | 2024-08-06 19:58 | PC.NURSE ---
placement verified by +epigastric sounds and xray
--- NOTE | 2024-08-06 20:03 | PC.NURSE ---
temp sensing arriaza placed with 500 ml returned immediately
[2024-08-06 20:04] LABS: Hematocrit 36.7 % (41-53); Hemoglobin 11.7 g/dL (13.5-17.5); Mean Corpuscular Hemoglobin 29.3 PG (26-34); Mean Corpuscular Volume 91.6 fL (80-100); Platelet Count 232 X10^3/uL (150-400); Red Cell Distribution Width 15.2 % (11.6-14.8); White Blood Cell Count 16.9 X10^3/uL (4.5-11.0)
[2024-08-06 20:06] LABS: Appearance Urine UA CLEAR; Bilirubin Urine UA NEGATIVE (NEGATIVE); Color Urine UA YELLOW; Glucose Urine UA NEGATIVE (Negative); Ketones Urine UA NEGATIVE (NEGATIVE); Leukocyte Esterase Urine UA NEGATIVE (NEGATIVE); Nitrite Urine UA NEGATIVE (Negative); Occult Blood Urine UA NEGATIVE (Negative); Protein Urine UA NEGATIVE (Negative); Urobilinogen Urine UA 0.2 E.U./dL (0.2); pH Urine UA 6.5 (4.5-8.0)
[2024-08-06 20:07] LABS: Allen Test for ABG Passed? Positive; Blood Gas Collection Site Left Radial; Delivery System Adult Ventilator; HCO3 ABG 17 mmol/L (23-27); Oxygen Saturation ABG 96 % (95-100); PCO2 ABG 41.5 mmHg (35-45); PO2 ABG 95 mmHg (80-100); TCO2 ABG 16 mmol/L (23-27); pH ABG 7.21 (7.35-7.45)
--- NOTE | 2024-08-06 20:11 | PC.NURSE ---
IO removed per protocol
[2024-08-06 20:12] LABS: Add Manual Diff / Slide Review YES
[2024-08-06 20:12] LABS: Urine Volume 10mL (spun)
--- NOTE | 2024-08-06 20:12 | PC.NURSE ---
to Ct with RT, RN, and vent
[2024-08-06 20:13] LABS: Bacteria Urine None Seen; Culture Indicated Urine Cult Not Indicated; RBC Urine None Seen (0-5/HPF); Squamous Epithelial Cell Urine None Seen (0-5/HPF); WBC Urine None Seen (0-5/HPF)
[2024-08-06 20:17] LABS: Alanine Aminotransferase 35 IU/L (<50); Albumin 2.4 g/dL (3.5-5.0); Albumin Globulin Ratio 0.7 (1.0-2.8); Alkaline Phosphatase 46 U/L (38-126); Aspartate Aminotransferase 48 IU/L (17-59); BUN Creatinine Ratio 11.3 (6-22); Bilirubin Total 0.5 mg/dL (0.2-1.3); Blood Urea Nitrogen 18 mg/dL (9-20); Carbon Dioxide 13 mmol/L (22-32); Chloride 95 mmol/L (98-107); Creatine Kinase 617 U/L (55-170); Estimated Glomerular Filt Rate 44 mL/min (>60); Globulin 3.3 g/dL (1.7-4.1); Glucose 181 mg/dL (80-110); HEMOLYSIS < 15 (0-50); Lipase 91 U/L (23-300); Sodium 126 mmol/L (137-145); Total Protein 5.7 g/dL (6.3-8.2)
[2024-08-06 20:24] LABS: Neutrophils Absolute Manual 11830 /uL (3000-5900); Nucleated Red Blood Cells 1 #/Diff; Total Cells Counted 100
[2024-08-06 20:25] LABS: Anisocytosis 1+
[2024-08-06 20:29] LABS: Troponin I 0.051 ng/mL (0.01-0.034)
[2024-08-06] MEDS: cefTRIAXone 2,000 MG in SODIUM CHLORIDE 0.9% 100 ML 200 MG IV (20:45)
--- NOTE | 2024-08-06 20:48 | RT ---
Patient brought in by EMS intubated in the field. 7.[address] and resecured at the lip 23. Placed on vent with initial settings of AC 16, 600, +5 100% fio2. Tolerated settings well with equal B/S BL. Taken to CT & back while on vent w/o incident and settled back in ER. Suctioned minimal clear secretions, ABG done and results shown to Dr. Sahni
[2024-08-06] MEDS: DOXYCYCLINE 100 MG in SODIUM CHLORIDE 0.9% 100 ML IV (21:25)
[2024-08-06] MEDS: POTASSIUM CHLORIDE IN WATER 10 MEQ/100 ML PIGGYBACK 100 MEQ IV ×3 (21:26→23:28)
--- NOTE | 2024-08-06 21:43 | PC.NURSE ---
Pt is currently intubated, but has current diagnosis of PNA and is being treated at care facility.
--- NOTE | 2024-08-06 21:44 | PC.NURSE ---
Pt found down, and unresponsive at care facility. Pt is currently being mechanically ventilated and can not participate in assessment at this time.
--- NOTE | 2024-08-06 21:54 | DI.RAD.S_ITS ---
PROCEDURE: XR CHEST 1V INDICATIONS: recheck OG tube TECHNIQUE: One view of the chest was acquired. COMPARISON: [facility], CR, XR CHEST 1V, 08/06/2024, 20:30. [facility], CR, XR CHEST 1V, 08/06/2024, 19:20. FINDINGS AND IMPRESSION: Enteric tube terminates in the distal stomach/1st portion of duodenum. ET tube projects over the mid trachea. Bibasilar lung consolidations again seen. Low lung volumes. Cardiomegaly. Prominent partially visualized bowel gas. Dictated by: Kadeem Minor M.D. on 08/06/2024 at 22:27 Approved by: Kadeem Minor M.D. on 08/06/2024 at 22:28
--- NOTE | 2024-08-06 22:14 | PC.NURSE ---
At 2208, pt noted to have HR 144, Provider notified, no new orders at that time.
[2024-08-06] MEDS: HYDROCORTISONE 100 MG/2 ML VIAL IV (22:17)
[2024-08-06] MEDS: SODIUM CHLORIDE 0.9% 1,000 ML 100 ML IV (22:22)
--- NOTE | 2024-08-06 22:27 | EKG_ITS ---
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
[2024-08-06] MEDS: CLINDAMYCIN 900 MG/50 ML PIGGYBACK 50 MG IV (23:23)
[2024-08-06 23:38] LABS: Lactate (Lactic Acid) 6.3 mmol/L (0.7-2.1)
[2024-08-06 23:47] LABS: Troponin I 0.066 ng/mL (0.01-0.034)
[2024-08-07] VITALS (124 sets, daily range): BP systolic 67–167; BP diastolic 43–99; PULSE 85–147; RESP 13–29; TEMP 37.2–38.3; O2SAT 92–100; BMI 32.8
[2024-08-07] MEDS: propofoL 1,000 MG/100 ML VIAL 2.844 MG IV (00:17)
[2024-08-07] MEDS: POTASSIUM CHLORIDE IN WATER 10 MEQ/100 ML PIGGYBACK 100 MEQ IV (00:31)
[2024-08-07 00:42] LABS: Reflexed Lactate in 2 Hours Y
[2024-08-07] MEDS: SODIUM CHLORIDE 0.9% 1,000 ML 1000 ML IV (01:07)
[2024-08-07 01:19] LABS: Lactate 2HR (Lactic Acid Rflx) 6.2 mmol/L (0.7-2.1)
--- NOTE | 2024-08-07 01:29 | P.HP_ITS ---
History of Present Illness History of Present Illness Date Patient Seen: 08/07/24 Time Patient Seen: 02:45 Chief complaint: Unresponsive Narrative: 78 y/o resident of [facility], with PMH of PAF, HTN, developmental delay, DM, found poorly responsive, hypotensive, hypoxemic. EMS started IO epinephrine. On arrival to ED in septic shock, he was intubated and had a central line placed, added Levophed and 3 different antibiotics for presumed aspiration pneumonia. Had a dose of hydrocortisone and taken of epinephrine. Repeated LA after ~ 1-2 L of fluids still high, > 6. Receiving another 1 L of NS bolus at the time of admission while on Levophed, Propofol. [facility] Medical History Schizophrenia in full remission with history of multiple episodes Surgical History Anesthesia Status post hernia repair (~2005) Status post appendectomy Family History Father History of heart disease Stroke Mother History of heart disease Stroke Grandfather History of heart disease Grandmother Stroke Grandfather History of heart disease Grandmother Cancer Social History Smoking Status: Never smoker alcohol intake: never Meds Home Medications and Allergies Home Medications Medication Instructions Recorded Confirmed Type divalproex 125 mg tablet,delayed 375 mg (3 x 125 mg) PO BID #180 06/23/22 10/31/23 Rx release (Depakote) tabs acetaminophen 325 mg tablet 650 mg (2 x 325 mg) PO QID #240 06/27/23 10/31/23 Rx tabs allopurinol 100 mg tablet 100 mg PO DAILY #30 tabs 06/27/23 10/31/23 Rx apixaban 5 mg tablet (Eliquis) See Rx Instructions .Route 06/27/23 10/31/23 Rx .COMPLEX #60 ea loratadine 10 mg tablet 10 mg PO DAILY #30 tabs 06/27/23 10/31/23 Rx metoprolol tartrate 25 mg tablet 25 mg PO BID #60 tabs 06/27/23 10/31/23 Rx quetiapine 100 mg tablet See Rx Instructions PO .COMPLEX 06/27/23 10/31/23 Rx #120 tabs tamsulosin 0.4 mg capsule (Flomax) 0.8 mg (2 x 0.4 mg) PO BEDTIME #60 06/27/23 10/31/23 Rx caps trazodone 50 mg tablet 50 mg PO BEDTIME #30 tabs 06/27/23 10/31/23 Rx diltiazem HCl 30 mg tablet 30 mg PO QID #120 tabs 07/08/23 10/31/23 Rx polyethylene glycol 3350 17 17 g PO DAILY PRN constipation 06/25/24 Rx gram/dose oral powder #510 grams Allergies Allergy/AdvReac Type Severity Reaction Status Date / Time No Known Drug Allergies Allergy Verified 10/31/23 11:26 Review of Systems Review of Systems Narrative: Unobtainable Exam Vital Signs (past 8 hours): - 08/06/24 19:28 08/06/24 19:30 08/06/24 19:32 Temperature Pulse Rate 122 H 120 H Respiratory Rate 15 Blood Pressure 56/36 L Pulse Oximetry 99 Oxygen Delivery Method 08/06/24 19:32 08/06/24 19:36 08/06/24 19:42 Temperature 99.9 F H Pulse Rate 116 H 166 H Respiratory Rate 15 16 Blood Pressure 56/36 L 110/69 Pulse Oximetry 90 L 92 Oxygen Delivery Method Mechanical Ventilation 08/06/24 19:42 08/06/24 19:45 08/06/24 19:45 Temperature 100.6 F H Pulse Rate 115 H 116 H Respiratory Rate 16 16 Blood Pressure 73/46 L Pulse Oximetry 91 Oxygen Delivery Method 08/06/24 19:45 08/06/24 19:48 08/06/24 19:48 Temperature 100.0 F H 99.9 F H Pulse Rate 110 H 112 H Respiratory Rate 16 17 Blood Pressure 64/41 L Pulse Oximetry 90 L 92 Oxygen Delivery Method 08/06/24 19:51 08/06/24 19:51 08/06/24 19:54 Temperature 100.0 F H Pulse Rate 119 H Respiratory Rate 16 Blood Pressure 103/72 108/56 L Pulse Oximetry 94 Oxygen Delivery Method 08/06/24 19:54 08/06/24 19:57 08/06/24 19:57 Temperature 99.9 F H 99.7 F H Pulse Rate 130 H 140 H Respiratory Rate 16 16 Blood Pressure 126/65 Pulse Oximetry 93 95 Oxygen Delivery Method 08/06/24 20:00 08/06/24 20:00 08/06/24 20:04 Temperature 99.7 F H Pulse Rate 156 H Respiratory Rate 16 Blood Pressure 163/105 H 154/54 H Pulse Oximetry 97 Oxygen Delivery Method 08/06/24 20:04 08/06/24 20:06 08/06/24 20:06 Temperature 99.5 F 99.3 F Pulse Rate 136 H 165 H Respiratory Rate 16 16 Blood Pressure 105/56 L Pulse Oximetry 94 96 Oxygen Delivery Method 08/06/24 20:10 08/06/24 20:12 08/06/24 20:12 Temperature 99.3 F 99.3 F Pulse Rate 137 H 137 H Respiratory Rate 16 16 Blood Pressure 101/59 L Pulse Oximetry 97 96 Oxygen Delivery Method 08/06/24 20:15 08/06/24 20:15 08/06/24 20:18 Temperature 98.8 F 99.1 F Pulse Rate 134 H 141 H Respiratory Rate 16 19 Blood Pressure 100/50 L Pulse Oximetry 96 96 Oxygen Delivery Method 08/06/24 20:18 08/06/24 20:20 08/06/24 20:24 Temperature 99.1 F 98.8 F Pulse Rate 138 H 138 H Respiratory Rate 16 16 Blood Pressure 141/80 H Pulse Oximetry 95 97 Oxygen Delivery Method 08/06/24 20:24 08/06/24 20:25 08/06/24 20:27 Temperature 98.8 F 98.8 F Pulse Rate 138 H 137 H Respiratory Rate 16 16 Blood Pressure 156/81 H Pulse Oximetry 97 97 Oxygen Delivery Method 08/06/24 20:27 08/06/24 20:30 08/06/24 20:30 Temperature 98.4 F Pulse Rate 136 H Respiratory Rate 22 Blood Pressure 151/70 H 167/73 H Pulse Oximetry 98 Oxygen Delivery Method 08/06/24 20:32 08/06/24 20:32 08/06/24 20:34 Temperature 98.2 F Pulse Rate 133 H Respiratory Rate 16 Blood Pressure 167/83 H 149/67 H Pulse Oximetry 98 Oxygen Delivery Method 08/06/24 20:34 08/06/24 20:35 08/06/24 20:36 Temperature 98.2 F 98.2 F Pulse Rate 148 H 132 H Respiratory Rate 16 16 Blood Pressure 150/75 H Pulse Oximetry 98 98 Oxygen Delivery Method 08/06/24 20:36 08/06/24 20:39 08/06/24 20:39 Temperature 98.2 F 98.1 F Pulse Rate 130 H 132 H Respiratory Rate 16 16 Blood Pressure 152/75 H Pulse Oximetry 98 97 Oxygen Delivery Method 08/06/24 20:40 08/06/24 20:42 08/06/24 20:42 Temperature 98.1 F 98.1 F Pulse Rate 132 H 133 H Respiratory Rate 16 16 Blood Pressure 152/84 H Pulse Oximetry 96 96 Oxygen Delivery Method 08/06/24 20:45 08/06/24 20:45 08/06/24 20:48 Temperature 98.1 F Pulse Rate 130 H Respiratory Rate 16 Blood Pressure 170/77 H 157/74 H Pulse Oximetry 96 Oxygen Delivery Method 08/06/24 20:48 08/06/24 20:50 08/06/24 20:51 Temperature 98.1 F 98.1 F Pulse Rate 130 H 132 H Respiratory Rate 16 16 Blood Pressure 124/68 Pulse Oximetry 96 95 Oxygen Delivery Method 08/06/24 20:51 08/06/24 20:54 08/06/24 20:54 Temperature 98.1 F 98.1 F Pulse Rate 129 H 136 H Respiratory Rate 16 Blood Pressure 135/70 Pulse Oximetry 95 95 Oxygen Delivery Method 08/06/24 20:55 08/06/24 20:57 08/06/24 20:57 Temperature 98.1 F 98.1 F Pulse Rate 128 H 126 H Respiratory Rate 16 Blood Pressure 125/72 Pulse Oximetry 94 95 Oxygen Delivery Method 08/06/24 21:00 08/06/24 21:00 08/06/24 21:03 Temperature 98.1 F 97.9 F Pulse Rate 138 H 132 H Respiratory Rate 16 16 Blood Pressure 126/77 Pulse Oximetry 95 94 Oxygen Delivery Method 08/06/24 21:03 08/06/24 21:05 08/06/24 21:06 Temperature 97.9 F Pulse Rate 124 H Respiratory Rate 16 Blood Pressure 147/71 H 155/70 H Pulse Oximetry 94 Oxygen Delivery Method 08/06/24 21:06 08/06/24 21:09 08/06/24 21:09 Temperature 97.9 F 97.9 F Pulse Rate 122 H 138 H Respiratory Rate 16 16 Blood Pressure 130/64 Pulse Oximetry 94 95 Oxygen Delivery Method Mechanical Ventilation 08/06/24 21:10 08/06/24 21:15 08/06/24 21:18 Temperature 97.9 F 97.9 F 97.9 F Pulse Rate 121 H 118 H 119 H Respiratory Rate 16 16 16 Blood Pressure Pulse Oximetry 94 95 95 Oxygen Delivery Method 08/06/24 21:18 08/06/24 21:20 08/06/24 21:25 Temperature 97.9 F 97.9 F Pulse Rate 114 H 114 H Respiratory Rate 16 16 Blood Pressure 125/78 Pulse Oximetry 94 95 Oxygen Delivery Method 08/06/24 21:30 08/06/24 21:30 08/06/24 21:45 Temperature 97.9 F 98.1 F Pulse Rate 112 H 109 H Respiratory Rate 16 16 Blood Pressure 157/111 H Pulse Oximetry 95 92 Oxygen Delivery Method Mechanical Ventilation 08/06/24 21:49 08/06/24 21:49 08/06/24 22:00 Temperature 98.1 F Pulse Rate 109 H Respiratory Rate 16 Blood Pressure 75/53 L 86/64 L Pulse Oximetry 93 Oxygen Delivery Method 08/06/24 22:00 08/06/24 22:15 08/06/24 22:15 Temperature 98.1 F 98.1 F Pulse Rate 135 H 141 H Respiratory Rate 16 16 Blood Pressure 98/77 Pulse Oximetry 95 95 Oxygen Delivery Method Mechanical Ventilation 08/06/24 22:30 08/06/24 22:31 08/06/24 22:31 Temperature 98.2 F 98.2 F Pulse Rate 126 H 140 H Respiratory Rate 16 16 Blood Pressure 200/127 H Pulse Oximetry 94 94 Oxygen Delivery Method 08/06/24 22:33 08/06/24 22:33 08/06/24 22:35 Temperature 98.2 F Pulse Rate 128 H Respiratory Rate 16 Blood Pressure 203/110 H 186/101 H Pulse Oximetry 94 Oxygen Delivery Method 08/06/24 22:35 08/06/24 22:40 08/06/24 22:40 Temperature 98.2 F 98.2 F Pulse Rate 144 H 127 H Respiratory Rate 16 16 Blood Pressure 162/107 H Pulse Oximetry 94 93 Oxygen Delivery Method 08/06/24 22:45 08/06/24 22:45 08/06/24 22:50 Temperature 98.2 F 98.4 F Pulse Rate 145 H 125 H Respiratory Rate 16 16 Blood Pressure 172/97 H Pulse Oximetry 93 93 Oxygen Delivery Method 08/06/24 22:50 08/06/24 22:55 08/06/24 22:55 Temperature 98.4 F Pulse Rate 140 H Respiratory Rate 16 Blood Pressure 187/112 H 160/77 H Pulse Oximetry 93 Oxygen Delivery Method 08/06/24 23:00 08/06/24 23:00 08/06/24 23:05 Temperature 98.4 F Pulse Rate 119 H Respiratory Rate 16 Blood Pressure 152/90 H 123/82 Pulse Oximetry 93 Oxygen Delivery Method 08/06/24 23:05 08/06/24 23:15 08/06/24 23:16 Temperature 98.6 F 98.6 F Pulse Rate 141 H 132 H Respiratory Rate 16 17 Blood Pressure 116/91 H Pulse Oximetry 92 94 Oxygen Delivery Method 08/06/24 23:16 08/06/24 23:30 08/06/24 23:32 Temperature 98.6 F 98.8 F Pulse Rate 135 H 131 H Respiratory Rate 19 20 Blood Pressure 128/71 Pulse Oximetry 93 93 Oxygen Delivery Method 08/06/24 23:32 08/06/24 23:45 08/06/24 23:45 Temperature 98.8 F 99.0 F Pulse Rate 130 H 138 H Respiratory Rate 20 17 Blood Pressure 96/58 L Pulse Oximetry 93 93 Oxygen Delivery Method 08/07/24 00:00 08/07/24 00:01 08/07/24 00:01 Temperature 99.1 F 99.0 F Pulse Rate 131 H 142 H Respiratory Rate 18 20 Blood Pressure 150/99 H Pulse Oximetry 94 93 Oxygen Delivery Method 08/07/24 00:15 08/07/24 00:21 08/07/24 00:21 Temperature 99.1 F 99.3 F Pulse Rate 110 H 111 H Respiratory Rate 17 19 Blood Pressure 98/67 Pulse Oximetry 94 92 Oxygen Delivery Method 08/07/24 00:30 08/07/24 00:31 08/07/24 00:31 Temperature 99.3 F 99.3 F Pulse Rate 110 H 110 H Respiratory Rate 18 17 Blood Pressure 98/66 Pulse Oximetry 96 95 Oxygen Delivery Method 08/07/24 00:40 08/07/24 00:40 Temperature 99.5 F Pulse Rate 107 H Respiratory Rate 16 Blood Pressure 79/60 L Pulse Oximetry 96 Oxygen Delivery Method Oxygen Delivery Method Mechanical Ventilation Const Other: Sedated on a ventilator - Levophed, NS, Propofol - 130/78 - 98% sat on 85/16/600 Resp Other: comfortable on set rate Cardio Other: tachyarrhythmic GI Other: abdomen not distended Skin Other: w/o rashes Extrem Other: w/o swelling Objective ECG Impression: A-fib with RVR, ~ 125, w/o ischemic changes Labs 08/06/24 19:50 08/06/24 19:50 Labs: Laboratory Results - last 24 hr 08/06/24 08/06/24 08/06/24 19:39 19:39 19:50 WBC 16.9 H RBC 4.00 L Hgb 11.7 L Hct 36.7 L MCV 91.6 MCH 29.3 MCHC 32.0 RDW 15.2 H Plt Count 232 Neut % (Auto) Not Reportable Lymph % (Auto) Not Reportable [place] % (Auto) Not Reportable Eos % (Auto) Not Reportable Baso % (Auto) Not Reportable Lymph # (Auto) Not Reportable [place] # (Auto) Not Reportable Baso # (Auto) Not Reportable Total Counted 100 Seg Neutrophils % 55.0 Band Neutrophils % 15.0 H Lymphocytes % (Manual) 20.0 L Monocytes % (Manual) 4.0 Eosinophils % (Manual) 2.0 Metamyelocytes % 4.0 H Neutrophils # (Manual) 52126 H Nucleated RBCs 1 H RBC Morphology See below Anisocytosis 1+ H ABG Sample Site ABG pH ABG pCO2 ABG pO2 ABG HCO3 ABG Total CO2 ABG O2 Saturation ABG Base Excess Leonel Test O2 Delivery Device Sodium 126 L Potassium 3.0 L Chloride 95 L Carbon Dioxide 13 L BUN 18 Creatinine 1.59 H Estimated GFR 44 L BUN/Creatinine Ratio 11.3 Glucose 181 H Lactate Calcium 7.0 L Total Bilirubin 0.5 AST 48 ALT 35 Alkaline Phosphatase 46 Total Creatine Kinase 617 H Troponin I 0.051 H Total Protein 5.7 L Albumin 2.4 L Globulin 3.3 Albumin/Globulin Ratio 0.7 L Lipase 91 Urine Color Yellow Urine Appearance Clear Urine pH 6.5 Normal Ur Specific [place] 1.010 Urine Protein Negative Urine Glucose (UA) Negative Urine Ketones Negative Urine Occult Blood Negative Urine Nitrate Negative Urine Bilirubin Negative Urine Urobilinogen 0.2 Ur Leukocyte Esterase Negative Urine RBC None seen Urine WBC None seen Ur Squamous Epith Cells None seen Urine Bacteria None seen Ur Culture Indicated? Cult not indicated Vol Urine Centrifuged 10ml (spun) U Opiates 300ng/mL cut Negative Ur Oxycodone Screen Negative Urine Methadone Screen Negative Ur Barbiturates Screen Negative U Tricyclic Antidepress Negative Ur Phencyclidine Scrn Negative Ur Amphetamines Screen Negative U Methamphetamines Scrn Negative Ur MDMA Scrn (Ecstasy) Negative U Benzodiazepines Scrn Negative Urine Cocaine Screen Negative U Marijuana (THC) Screen Negative Urine Specific [place] Normal Ur Creatinine Normal 08/06/24 08/06/24 08/06/24 20:03 22:53 23:05 WBC RBC Hgb Hct MCV MCH MCHC RDW Plt Count Neut % (Auto) Lymph % (Auto) [place] % (Auto) Eos % (Auto) Baso % (Auto) Lymph # (Auto) [place] # (Auto) Baso # (Auto) Total Counted Seg Neutrophils % Band Neutrophils % Lymphocytes % (Manual) Monocytes % (Manual) Eosinophils % (Manual) Metamyelocytes % Neutrophils # (Manual) Nucleated RBCs RBC Morphology Anisocytosis ABG Sample Site Left radial ABG pH 7.21 L* ABG pCO2 41.5 ABG pO2 95 ABG HCO3 17 L ABG Total CO2 16 L ABG O2 Saturation 96 ABG Base Excess -11.0 L Leonel Test Positive O2 Delivery Device Adult ventilator Sodium Potassium Chloride Carbon Dioxide BUN Creatinine Estimated GFR BUN/Creatinine Ratio Glucose Lactate 6.3 H* Calcium Total Bilirubin AST ALT Alkaline Phosphatase Total Creatine Kinase Troponin I 0.066 H Total Protein Albumin Globulin Albumin/Globulin Ratio Lipase Urine Color Urine Appearance Urine pH Ur Specific [place] Urine Protein Urine Glucose (UA) Urine Ketones Urine Occult Blood Urine Nitrate Urine Bilirubin Urine Urobilinogen Ur Leukocyte Esterase Urine RBC Urine WBC Ur Squamous Epith Cells Urine Bacteria Ur Culture Indicated? Vol Urine Centrifuged U Opiates 300ng/mL cut Ur Oxycodone Screen Urine Methadone Screen Ur Barbiturates Screen U Tricyclic Antidepress Ur Phencyclidine Scrn Ur Amphetamines Screen U Methamphetamines Scrn Ur MDMA Scrn (Ecstasy) U Benzodiazepines Scrn Urine Cocaine Screen U Marijuana (THC) Screen Urine Specific [place] Ur Creatinine 08/07/24 00:58 WBC RBC Hgb Hct MCV MCH MCHC RDW Plt Count Neut % (Auto) Lymph % (Auto) [place] % (Auto) Eos % (Auto) Baso % (Auto) Lymph # (Auto) [place] # (Auto) Baso # (Auto) Total Counted Seg Neutrophils % Band Neutrophils % Lymphocytes % (Manual) Monocytes % (Manual) Eosinophils % (Manual) Metamyelocytes % Neutrophils # (Manual) Nucleated RBCs RBC Morphology Anisocytosis ABG Sample Site ABG pH ABG pCO2 ABG pO2 ABG HCO3 ABG Total CO2 ABG O2 Saturation ABG Base Excess Leonel Test O2 Delivery Device Sodium Potassium Chloride Carbon Dioxide BUN Creatinine Estimated GFR BUN/Creatinine Ratio Glucose Lactate 6.2 H* Calcium Total Bilirubin AST ALT Alkaline Phosphatase Total Creatine Kinase Troponin I Total Protein Albumin Globulin Albumin/Globulin Ratio Lipase Urine Color Urine Appearance Urine pH Ur Specific [place] Urine Protein Urine Glucose (UA) Urine Ketones Urine Occult Blood Urine Nitrate Urine Bilirubin Urine Urobilinogen Ur Leukocyte Esterase Urine RBC Urine WBC Ur Squamous Epith Cells Urine Bacteria Ur Culture Indicated? Vol Urine Centrifuged U Opiates 300ng/mL cut Ur Oxycodone Screen Urine Methadone Screen Ur Barbiturates Screen U Tricyclic Antidepress Ur Phencyclidine Scrn Ur Amphetamines Screen U Methamphetamines Scrn Ur MDMA Scrn (Ecstasy) U Benzodiazepines Scrn Urine Cocaine Screen U Marijuana (THC) Screen Urine Specific [place] Ur Creatinine Assessment & Plan Assessment and plan (1) Septic shock: Status: Acute (2) Pneumonia: Qualifiers: Laterality: unspecified laterality Lung location: unspecified part of lung Pneumonia type: due to unspecified organism Qualified Code(s): J18.9 - Pneumonia, unspecified organism Status: Acute (3) Altered mental status: Qualifiers: Altered mental status type: unspecified Qualified Code(s): R41.82 - Altered mental status, unspecified Status: Acute (4) Paroxysmal atrial fibrillation with rapid ventricular response: Status: Acute (5) Essential hypertension: Status: Chronic (6) Type 2 diabetes, diet controlled: Problem details: 07/10/2023: A1 6.4% (previous 6.2% 03/19/2022) Status: Acute (7) Developmental disorder of scholastic skills, unspecified: Status: Chronic Assessment & Plan narrative: Septic Shock / Presumed Aspiration Pneumonia / Altered MS - mechanical ventilation, wean with improved vitals - 85%/16/600, saturation 98%, repeat ABGs, titrate O2 - Cefepime, Vancomycin - IVFs - had total of 3 L of NS until 3 AM, on NS at 100 cc - Levophed titrated PAF / HTN - Lovenox therapeutic - restart Eliquis and PO BB/CCB when extubated with resumed PO - Eliquis, metoprolol and diltiazem on hold - prn iv BB for rate control DM - SS q 6 h Developmental Disorder / ZEESHAN - at home on Depakote, Seroquel and Trazodone - restart with resumed PO Time-Based Coding :: [TOTAL MINUTES] spent with patient and on the chart (including review of chart, obtaining history, exam, reviewing outside data, placing orders, documenting exam and treatment plan, and counseling patient) on [DATE].
--- NOTE | 2024-08-07 01:55 | RT ---
Patient trasported via vent to ICU 228. Settled in and placed on Drager w/o incident.
[2024-08-07] MEDS: VANCOMYCIN 2,000 MG/400 ML PIGGYBACK 200 MG IV (02:50)
[2024-08-07 03:31] LABS: Hematocrit 40.1 % (41-53); Hemoglobin 13.2 g/dL (13.5-17.5); Mean Corpuscular HGB Conc 32.8 % (30-36); Mean Corpuscular Hemoglobin 29.3 PG (26-34); Mean Corpuscular Volume 89.5 fL (80-100); Platelet Count 250 X10^3/uL (150-400); Red Blood Cell Count 4.48 X10^6/uL (4.5-5.9); Red Cell Distribution Width 15.5 % (11.6-14.8); White Blood Cell Count 17.2 X10^3/uL (4.5-11.0)
[2024-08-07 03:33] LABS: Add Manual Diff / Slide Review YES
[2024-08-07 03:38] LABS: Alanine Aminotransferase 36 IU/L (<50); Albumin 2.9 g/dL (3.5-5.0); Albumin Globulin Ratio 0.8 (1.0-2.8); Alkaline Phosphatase 61 U/L (38-126); Aspartate Aminotransferase 108 IU/L (17-59); Bilirubin Total 0.3 mg/dL (0.2-1.3); Blood Urea Nitrogen 20 mg/dL (9-20); Calcium 7.9 mg/dL (8.4-10.2); Carbon Dioxide 20 mmol/L (22-32); Chloride 91 mmol/L (98-107); Estimated Glomerular Filt Rate 46 mL/min (>60); Globulin 3.8 g/dL (1.7-4.1); Glucose 154 mg/dL (80-110); HEMOLYSIS < 15 (0-50); Magnesium 1.5 mg/dL (1.6-2.3); Sodium 124 mmol/L (137-145); Total Protein 6.7 g/dL (6.3-8.2)
[2024-08-07 03:46] LABS: Lactate (Lactic Acid) 5.6 mmol/L (0.7-2.1)
[2024-08-07 03:50] LABS: Troponin I 0.094 ng/mL (0.01-0.034)
[2024-08-07 04:06] LABS: Neutrophils Absolute Manual 14276 /uL (3000-5900); Total Cells Counted 100
[2024-08-07 04:07] LABS: Anisocytosis 1+
--- NOTE | 2024-08-07 04:10 | EKG_ITS ---
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
[2024-08-07] MEDS: NOREPINEPHRINE BITARTRATE/D5W 4 MG/250 ML PLAST..BAG 60.436 MG IV (04:31)
[2024-08-07 04:59] LABS: Reflexed Lactate in 2 Hours Y
[2024-08-07 05:28] LABS: Lactate 2HR (Lactic Acid Rflx) 5.6 mmol/L (0.7-2.1)
--- NOTE | 2024-08-07 06:07 | PC.NURSE ---
Pt arrived on unit 0150, vent settings 85% FiO2, RR 16, Tidal Vol 600, PEEP 5. After transfer, pt's sats dropped into the 80's and endotracheal suctioning withdrew gastric aspirate, O2 sat returning to >92%. Propofol and Norepi running in femoral line, titrated per protocol (see MAR). Moisture related skin breakdown in gluteal cleft, barrier cream applied. Troponin continuing to rise 0.051 --> 0.066 --> 0.094 (Next trop drawn 0700) Lactate 6.9 @ admit, 5.6 @ 0500 (next lactate drawn at 0700)
--- NOTE | 2024-08-07 08:04 | PC.NURSE ---
Addendum entered by Rg Estrada R.N. 08/07/24 19:02: 1850 - HR 125-155, A Fib, temp 100.8. IV Tylenol and ice packs placed, patient declined pain. Dr Campbell contacted, monitor HR for an additional 30-45 minutes, then contact again. Addendum entered by Rg Estrada R.N. 08/07/24 09:50: 0930 - Rounded with Dr. Sharp alongside pharmacy and dietary via telephone. Stat ABG, repeat CBC Trop and CK in [address] Sharp with results of ABG. Addendum entered by Rg Estrada R.N. 08/07/24 09:04: 0904 - Spoke with Dr. Urban, updated on patient's condition. He will touch base with tele-ICU provider group. Original Note: 0755 - Informed by Dr. Almazan that the wrong call group was contacted for this patient, services will be transferred to Dr. Urban / Dr. Jordan. Verbal order from Dr. Almazan for tele-ICU consult.
[2024-08-07] MEDS: SODIUM CHLORIDE 0.9% 1,000 ML 100 ML IV ×2 (08:29→18:08)
[2024-08-07 08:36] LABS: Creatine Kinase 3913 U/L (55-170)
[2024-08-07 08:41] LABS: Troponin I 0.143 ng/mL (0.01-0.034)
[2024-08-07 09:17] LABS: Add Manual Diff / Slide Review NO; Basophils Absolute Auto 0 /uL (0-100); Basophils Percent Auto 0.2 % (0-2); Eosinophils Absolute Auto 0 /uL (0-450); Hematocrit 37.9 % (41-53); Hemoglobin 12.5 g/dL (13.5-17.5); Lymphocytes Absolute Auto 2400 /uL (1100-4500); Lymphocytes Percent Auto 13.9 % (25-40); Mean Corpuscular Hemoglobin 29.4 PG (26-34); Monocytes Absolute Auto 900 /uL (0-900); Monocytes Percent Auto 5.4 % (3-14); Neutrophils Absolute Auto 13700 /uL (1500-7000); Neutrophils Percent Auto 80.5 % (50-75); Platelet Count 245 X10^3/uL (150-400); Red Blood Cell Count 4.25 X10^6/uL (4.5-5.9); Red Cell Distribution Width 15.4 % (11.6-14.8)
[2024-08-07 09:27] LABS: Alanine Aminotransferase 34 IU/L (<50); Albumin 2.7 g/dL (3.5-5.0); Albumin Globulin Ratio 0.7 (1.0-2.8); Alkaline Phosphatase 56 U/L (38-126); Aspartate Aminotransferase 107 IU/L (17-59); BUN Creatinine Ratio 15.5 (6-22); Bilirubin Total 0.2 mg/dL (0.2-1.3); Blood Urea Nitrogen 20 mg/dL (9-20); Calcium 7.6 mg/dL (8.4-10.2); Carbon Dioxide 19 mmol/L (22-32); Chloride 94 mmol/L (98-107); Estimated Glomerular Filt Rate 57 mL/min (>60); Globulin 3.7 g/dL (1.7-4.1); Glucose 145 mg/dL (80-110); HEMOLYSIS 17 (0-50); Potassium 4.2 mmol/L (3.4-5.1); Sodium 123 mmol/L (137-145); Total Protein 6.4 g/dL (6.3-8.2)
[2024-08-07] MEDS: CEFEPIME 2 GM in SODIUM CHLORIDE 0.9% 100 ML IV ×2 (10:13→22:01)
[2024-08-07] MEDS: PANTOPRAZOLE 40 MG VIAL IV (10:14)
[2024-08-07] MEDS: ENOXAPARIN 100 MG/ML SYRINGE 95 MG SUBCUT ×2 (10:14→21:22)
[2024-08-07] MEDS: NOREPINEPHRINE BITARTRATE/D5W 4 MG/250 ML PLAST..BAG 35.55 MG IV (10:18)
[2024-08-07] MEDS: ACETAMINOPHEN IV 1,000 MG/100 ML VIAL 400 MG IV ×2 (10:29→18:33)
[2024-08-07] MEDS: CHLORHEXIDINE GLUCONATE 15 ML CUP PO (10:31)
[2024-08-07] MEDS: INSULIN LISPRO 100 UNIT/ML 3ML VIAL SUBCUT ×2 (10:35→16:34)
--- NOTE | 2024-08-07 10:45 | P.TELICUCN_ITS ---
History of Present Illness Consult details IF CAMERA ACTIVATED, patient seen via real-time interactive audiovisual communication: Camera not activated (E primary care md down, system wide, unable to perform camera exam right now. This note generated without video assessment) Chief complaint: Unresponsive Reason for consult: Septic shock, PNA, acute respiratory failure Consent obtained for tele-anthropometrist care: Yes Patient Location: ICU Provider location (State): [place] Other participants/roles: discussed case with bedside RN, pharmacist Narrative: Per discussion with bedside team, patient is 78 yo M with h/o PAF on eliquis, DM2, developmental delay- who was found down at [facility], hypoxemic and hypotensive. EMS was called and he was intubated in field. In ED, reportedly gastric contents were suctioned out of the ETT-, concerning for aspiration event. He remained hypotensive requiring levophed He was bolused 3 L iv fluids, LA was found to be 6.3, CK elevated 3900, Trop uptrending to 0.143, Na low at 126, Cr elevated 1.29- abg after intubation showed metabolic acidosis- ph 7.21- CT c/a/p showed infiltrates and debris in airway c/f aspiration. also showed some fat stranding around kidney and bladder thickening, c/f infection (see full report below)- He was started on broad spectrum abx, given stress dose steroid dosing- central line placed. He was admitted to icu this am his LA remains elevated, he is on vent 65% peep 5, awaiting repeat abg- he remains on levophed vanco and cefepime [facility] Medical History Schizophrenia in full remission with history of multiple episodes Surgical History Anesthesia Status post hernia repair (~2005) Status post appendectomy Family History Father History of heart disease Stroke Mother History of heart disease Stroke Grandfather History of heart disease Grandmother Stroke Grandfather History of heart disease Grandmother Cancer Social History household members: spouse Smoking Status: Never smoker alcohol intake: never Current Medications Current Medications Medications: Home Medications divalproex 125 mg tablet,delayed release (Depakote) 375 mg (3 x 125 mg) PO BID #180 tabs 06/23/22 [Rx Confirmed 10/31/23] acetaminophen 325 mg tablet 650 mg (2 x 325 mg) PO QID #240 tabs 06/27/23 [Rx Confirmed 10/31/23] allopurinol 100 mg tablet 100 mg PO DAILY #30 tabs 06/27/23 [Rx Confirmed 10/31/23] apixaban 5 mg tablet (Eliquis) See Rx Instructions .Route .COMPLEX #60 ea 06/27/23 [Rx Confirmed 10/31/23] loratadine 10 mg tablet 10 mg PO DAILY #30 tabs 06/27/23 [Rx Confirmed 10/31/23] metoprolol tartrate 25 mg tablet 25 mg PO BID #60 tabs 06/27/23 [Rx Confirmed 10/31/23] quetiapine 100 mg tablet See Rx Instructions PO .COMPLEX #120 tabs 06/27/23 [Rx Confirmed 10/31/23] tamsulosin 0.4 mg capsule (Flomax) 0.8 mg (2 x 0.4 mg) PO BEDTIME #60 caps 06/27/23 [Rx Confirmed 10/31/23] trazodone 50 mg tablet 50 mg PO BEDTIME #30 tabs 06/27/23 [Rx Confirmed 10/31/23] diltiazem HCl 30 mg tablet 30 mg PO QID #120 tabs 07/08/23 [Rx Confirmed 10/31/23] polyethylene glycol 3350 17 gram/dose oral powder 17 g PO DAILY PRN constipation #510 grams 06/25/24 [Rx] Visit Medications (administered) Generic Name Dose Route Start Last Admin Trade Name Freq PRN Reason Stop Dose Admin Chlorhexidine Gluconate 15 ml 08/07/24 10:18 08/07/24 10:31 Chlorhexidine Gluconate 15 Ml Cup PO 15 ml 1018 ZEESHAN Administration Enoxaparin Sodium 95 mg 08/07/24 09:00 08/07/24 10:14 Enoxaparin 100 Mg/Ml Syringe SUBCUT 95 mg BID ZEESHAN Administration NOREPINEPHRINE BITARTRATE/D5W 4 mg in 250 mls @ 35.55 mls/hr 08/06/24 20:15 08/07/24 10:18 Levophed IV 0.1 mcg/kg/min TITRATE ZEESHAN 35.55 mls/hr Administration Protocol 0.1 MCG/KG/MIN Propofol 1,000 mg in 100 mls @ 2.844 mls/hr 08/06/24 23:45 08/07/24 01:10 Diprivan IV 10 mcg/kg/min TITRATE ZEESHAN 5.688 mls/hr Titration Protocol 5 MCG/KG/MIN Cefepime HCl 2 gm/ Sodium 100 mls @ 200 mls/hr 08/07/24 09:45 08/07/24 10:13 Chloride IV 200 mls/hr Q12H ZEESHAN Administration Sodium Chloride 1,000 mls @ 100 mls/hr 08/07/24 02:00 08/07/24 08:29 Normal Saline 0.9% IV 100 mls/hr CONT ZEESHAN Administration Acetaminophen 1,000 mg in 100 mls @ 400 mls/hr 08/07/24 10:17 08/07/24 10:29 Ofirmev IV 400 mls/hr Q6H PRN Administration Fever/Mild Pain (1-3) Insulin Human Lispro 0 unit 08/07/24 10:30 08/07/24 10:35 Insulin Lispro 100 Unit/Ml 3ml Vial SUBCUT 1 unit Q6H ZEESHAN Administration Protocol Pantoprazole Sodium 40 mg 08/07/24 09:00 08/07/24 10:14 Pantoprazole 40 Mg Vial IV 40 mg DAILY ZEESHAN Administration Review of Systems Review of Systems Narrative: intubated, sedated Unable to assess Exam Vital Signs (past 8 hours): - 08/07/24 03:00 08/07/24 03:00 08/07/24 03:15 Temperature 100.8 F H 100.8 F H Pulse Rate 102 H 103 H Respiratory Rate 16 16 Blood Pressure 130/78 Pulse Oximetry 97 96 08/07/24 03:30 08/07/24 03:30 08/07/24 03:45 Temperature 100.8 F H 100.8 F H Pulse Rate 100 H 101 H Respiratory Rate 16 16 Blood Pressure 119/83 Pulse Oximetry 97 98 08/07/24 04:00 08/07/24 04:00 08/07/24 04:15 Temperature 100.8 F H 100.8 F H Pulse Rate 104 H 105 H Respiratory Rate 16 16 Blood Pressure 126/78 Pulse Oximetry 99 99 08/07/24 04:30 08/07/24 04:30 08/07/24 04:45 Temperature 100.8 F H 100.8 F H Pulse Rate 111 H 108 H Respiratory Rate 13 15 Blood Pressure 132/80 Pulse Oximetry 99 100 08/07/24 05:00 08/07/24 05:15 08/07/24 05:25 Temperature 100.8 F H 100.8 F H Pulse Rate 108 H 107 H Respiratory Rate 17 16 Blood Pressure 145/69 H Pulse Oximetry 97 100 08/07/24 05:25 08/07/24 05:30 08/07/24 05:33 Temperature 100.8 F H 100.8 F H Pulse Rate 106 H 109 H Respiratory Rate 16 16 Blood Pressure 106/73 Pulse Oximetry 99 100 08/07/24 05:33 08/07/24 05:45 08/07/24 06:00 Temperature 100.8 F H 100.9 F H Pulse Rate 108 H 109 H Respiratory Rate 16 16 Blood Pressure 125/58 L Pulse Oximetry 99 99 08/07/24 06:00 08/07/24 06:15 08/07/24 06:30 Temperature 100.9 F H 100.9 F H Pulse Rate 110 H 110 H Respiratory Rate 16 16 Blood Pressure 143/65 H Pulse Oximetry 98 98 08/07/24 06:30 08/07/24 06:37 08/07/24 06:37 Temperature 100.9 F H 100.9 F H Pulse Rate 112 H 112 H Respiratory Rate 17 16 Blood Pressure 142/65 H Pulse Oximetry 98 98 08/07/24 06:45 08/07/24 07:00 08/07/24 07:01 Temperature 100.9 F H 100.9 F H 100.9 F H Pulse Rate 115 H 115 H 114 H Respiratory Rate 16 16 16 Blood Pressure Pulse Oximetry 95 96 96 08/07/24 07:01 08/07/24 07:02 08/07/24 07:02 Temperature 100.9 F H Pulse Rate 114 H Respiratory Rate 16 Blood Pressure 78/51 L 71/47 L Pulse Oximetry 96 08/07/24 07:06 08/07/24 07:06 08/07/24 07:08 Temperature 100.9 F H 100.9 F H Pulse Rate 105 H 104 H Respiratory Rate 16 15 Blood Pressure 67/43 L Pulse Oximetry 99 100 08/07/24 07:08 08/07/24 07:15 08/07/24 07:30 Temperature 100.9 F H 100.9 F H Pulse Rate 106 H 105 H Respiratory Rate 16 16 Blood Pressure 167/94 H Pulse Oximetry 99 99 08/07/24 07:30 Temperature Pulse Rate Respiratory Rate Blood Pressure 137/92 H Pulse Oximetry Fraction of Inspired Oxygen 85 Oxygen Delivery Method Mechanical Ventilation Narrative Exam Narrative: unable to examine patient currently, camera down Objective ECG Impression: 08/07 Sinus tach, nonspecific t , st abnromalities Imaging CT scan - pelvis: Radiologist's impression: [address] [address] [address] Scan Report Signed Patient: Stephen Francis MR#: [id number] : 1945 Acct:[id number] Age/Sex: 78 / M Date of Service: 08/06/24 Loc: ED Accession Number: [id number] Procedure: CT angio chest abdomen pelvis Ordering Provider: Fadi Sahni MD PROCEDURE: CT ANGIO CHEST ABDOMEN PELVIS INDICATIONS: unresponsive TECHNIQUE: Precontrast 5 mm thick sections acquired from the lung apices to the iliac crests. After the administration of intravenous contrast, 2.5 mm thick sections again acquired from the lung apices to the iliac crests. Maximum intensity projection (MIP) oblique sagittal and coronal reformats were then acquired. For radiation dose reduction, the following was used: automated exposure control. COMPARISON: None. FINDINGS: Image quality: Diagnostic Lungs and pleura: There are bibasilar consolidations and atelectasis. ET tube terminates in the mid trachea Mediastinum, heart, and esophagus: No intramural hematoma on pre contrast images. Cardiomegaly, coronary, and annular cardiac calcifications. There is no central pulmonary embolism. There are aortic valve calcifications. Atherosclerotic calcifications. No acute aortic dissection. The ascending aorta/aortic root is not well assessed on this non gated study, there is focal irregularity at the left subclavian artery. (.) Prominent mediastinal lymph nodes are seen, for example right paratracheal node measures 1 cm in short axis. Attention on follow-up. Debris is seen in the airways. Chest wall and thyroid: Unremarkable chest wall and thyroid Liver: Right lower lobe cysts. Subcentimeter lesions are too small to characterize, usually also cysts. No laceration or hematoma Gallbladder and biliary system: Unremarkable, nondilated Pancreas: No ductal dilation Spleen: no capsular hematoma or lacerations Adrenals: Hyperenhancing adrenal glands Kidneys: Mild bilateral pelviectasis and ureter ectasia. Surrounding edematous fat stranding is seen. No solid renal mass Vessels and lymph nodes: Atherosclerotic calcifications. No abdominal aortic aneurysm. No pathologic lymph nodes by size criteria. The major mesenteric arteries and renal arteries appear patent. The pelvic arteries appear patent. A right central line is seen, with contrast obscuring the tip, which is likely in the right external iliac vein Bowel and peritoneum: The enteric tube is seen in the distal esophagus. The stomach is moderately distended filled with fluid. No small bowel obstruction. No drainable abscess or ascites. There is a moderate rectal stool ball. Small amount pelvic free fluid is nonspecific. Colonic diverticula are present. Normal diameter appendix Body wall: Small fat containing umbilical hernia with a wide neck. Pelvis: Smith is in place. Bladder wall thickening with perivesicular edematous fat stranding. There is mild iatrogenic air in the venous system from the right central line. Bones: There are degenerative changes. No acute or suspicious osseous findings. Age-indeterminate height loss at L1. IMPRESSION: No central pulmonary embolism. No intramural hematoma or aortic dissection. Bibasilar consolidations likely pneumonia. Debris is seen in the airways. Aspiration is also possible. Borderline enlarged mediastinal lymph nodes. Consider future imaging surveillance to assess for resolution. ET tube terminates in the mid trachea. Enteric tube terminates in the distal esophagus. Moderately distended stomach. Nonspecific small amount pelvic free fluid. Renal pelvic and ureter ectasia with mild edematous surrounding fat stranding. Bladder wall thickening with Smith in place. Correlate urinalysis for infection. There is no obstructing calcified stone identified. Hyperenhancing adrenals, correlate with any recent hypotension episodes. Incidentally noted focal irregularity in the left subclavian artery, which may represent irregular plaque versus a small dissection. Other findings above. Labs 08/07/24 07:50 08/07/24 07:50 Labs: Laboratory Results - last 24 hr 08/06/24 08/06/24 08/06/24 19:39 19:39 19:50 WBC 16.9 H RBC 4.00 L Hgb 11.7 L Hct 36.7 L MCV 91.6 MCH 29.3 MCHC 32.0 RDW 15.2 H Plt Count 232 Neut % (Auto) Not Reportable Lymph % (Auto) Not Reportable [place] % (Auto) Not Reportable Eos % (Auto) Not Reportable Baso % (Auto) Not Reportable Neut # (Auto) Lymph # (Auto) Not Reportable [place] # (Auto) Not Reportable Eos # (Auto) Baso # (Auto) Not Reportable Total Counted 100 Seg Neutrophils % 55.0 Band Neutrophils % 15.0 H Lymphocytes % (Manual) 20.0 L Monocytes % (Manual) 4.0 Eosinophils % (Manual) 2.0 Metamyelocytes % 4.0 H Neutrophils # (Manual) 43508 H Nucleated RBCs 1 H RBC Morphology See below Anisocytosis 1+ H ABG Sample Site ABG pH ABG pCO2 ABG pO2 ABG HCO3 ABG Total CO2 ABG O2 Saturation ABG Base Excess Leonel Test O2 Delivery Device Sodium 126 L Potassium 3.0 L Chloride 95 L Carbon Dioxide 13 L BUN 18 Creatinine 1.59 H Estimated GFR 44 L BUN/Creatinine Ratio 11.3 Glucose 181 H Lactate Calcium 7.0 L Magnesium Total Bilirubin 0.5 AST 48 ALT 35 Alkaline Phosphatase 46 Total Creatine Kinase 617 H Troponin I 0.051 H Total Protein 5.7 L Albumin 2.4 L Globulin 3.3 Albumin/Globulin Ratio 0.7 L Lipase 91 Urine Color Yellow Urine Appearance Clear Urine pH 6.5 Normal Ur Specific [place] 1.010 Urine Protein Negative Urine Glucose (UA) Negative Urine Ketones Negative Urine Occult Blood Negative Urine Nitrate Negative Urine Bilirubin Negative Urine Urobilinogen 0.2 Ur Leukocyte Esterase Negative Urine RBC None seen Urine WBC None seen Ur Squamous Epith Cells None seen Urine Bacteria None seen Ur Culture Indicated? Cult not indicated Vol Urine Centrifuged 10ml (spun) U Opiates 300ng/mL cut Negative Ur Oxycodone Screen Negative Urine Methadone Screen Negative Ur Barbiturates Screen Negative U Tricyclic Antidepress Negative Ur Phencyclidine Scrn Negative Ur Amphetamines Screen Negative U Methamphetamines Scrn Negative Ur MDMA Scrn (Ecstasy) Negative U Benzodiazepines Scrn Negative Urine Cocaine Screen Negative U Marijuana (THC) Screen Negative Urine Specific [place] Normal Ur Creatinine Normal 02/13/25 02/13/25 02/13/25 20:03 22:53 23:05 WBC RBC Hgb Hct MCV MCH MCHC RDW Plt Count Neut % (Auto) Lymph % (Auto) [place] % (Auto) Eos % (Auto) Baso % (Auto) Neut # (Auto) Lymph # (Auto) [place] # (Auto) Eos # (Auto) Baso # (Auto) Total Counted Seg Neutrophils % Band Neutrophils % Lymphocytes % (Manual) Monocytes % (Manual) Eosinophils % (Manual) Metamyelocytes % Neutrophils # (Manual) Nucleated RBCs RBC Morphology Anisocytosis ABG Sample Site Left radial ABG pH 7.21 L* ABG pCO2 41.5 ABG pO2 95 ABG HCO3 17 L ABG Total CO2 16 L ABG O2 Saturation 96 ABG Base Excess -11.0 L Leonel Test Positive O2 Delivery Device Adult ventilator Sodium Potassium Chloride Carbon Dioxide BUN Creatinine Estimated GFR BUN/Creatinine Ratio Glucose Lactate 6.3 H* Calcium Magnesium Total Bilirubin AST ALT Alkaline Phosphatase Total Creatine Kinase Troponin I 0.066 H Total Protein Albumin Globulin Albumin/Globulin Ratio Lipase Urine Color Urine Appearance Urine pH Ur Specific [place] Urine Protein Urine Glucose (UA) Urine Ketones Urine Occult Blood Urine Nitrate Urine Bilirubin Urine Urobilinogen Ur Leukocyte Esterase Urine RBC Urine WBC Ur Squamous Epith Cells Urine Bacteria Ur Culture Indicated? Vol Urine Centrifuged U Opiates 300ng/mL cut Ur Oxycodone Screen Urine Methadone Screen Ur Barbiturates Screen U Tricyclic Antidepress Ur Phencyclidine Scrn Ur Amphetamines Screen U Methamphetamines Scrn Ur MDMA Scrn (Ecstasy) U Benzodiazepines Scrn Urine Cocaine Screen U Marijuana (THC) Screen Urine Specific [place] Ur Creatinine 08/07/24 08/07/24 08/07/24 00:58 03:10 05:03 WBC 17.2 H RBC 4.48 L Hgb 13.2 L Hct 40.1 L MCV 89.5 MCH 29.3 MCHC 32.8 RDW 15.5 H Plt Count 250 Neut % (Auto) Not Reportable Lymph % (Auto) Not Reportable [place] % (Auto) Not Reportable Eos % (Auto) Not Reportable Baso % (Auto) Not Reportable Neut # (Auto) Lymph # (Auto) Not Reportable [place] # (Auto) Not Reportable Eos # (Auto) Baso # (Auto) Not Reportable Total Counted 100 Seg Neutrophils % 65.0 Band Neutrophils % 18.0 H Lymphocytes % (Manual) 11.0 L Monocytes % (Manual) 3.0 Eosinophils % (Manual) Metamyelocytes % 3.0 H Neutrophils # (Manual) 66940 H Nucleated RBCs RBC Morphology See below Anisocytosis 1+ H ABG Sample Site ABG pH ABG pCO2 ABG pO2 ABG HCO3 ABG Total CO2 ABG O2 Saturation ABG Base Excess Leonel Test O2 Delivery Device Sodium 124 L Potassium 5.0 D Chloride 91 L Carbon Dioxide 20 L BUN 20 Creatinine 1.54 H Estimated GFR 46 L BUN/Creatinine Ratio 13.0 Glucose 154 H Lactate 6.2 H* 5.6 H* 5.6 H* Calcium 7.9 L Magnesium 1.5 L Total Bilirubin 0.3 AST 108 H ALT 36 Alkaline Phosphatase 61 Total Creatine Kinase Troponin I 0.094 H Total Protein 6.7 Albumin 2.9 L Globulin 3.8 Albumin/Globulin Ratio 0.8 L Lipase Urine Color Urine Appearance Urine pH Ur Specific [place] Urine Protein Urine Glucose (UA) Urine Ketones Urine Occult Blood Urine Nitrate Urine Bilirubin Urine Urobilinogen Ur Leukocyte Esterase Urine RBC Urine WBC Ur Squamous Epith Cells Urine Bacteria Ur Culture Indicated? Vol Urine Centrifuged U Opiates 300ng/mL cut Ur Oxycodone Screen Urine Methadone Screen Ur Barbiturates Screen U Tricyclic Antidepress Ur Phencyclidine Scrn Ur Amphetamines Screen U Methamphetamines Scrn Ur MDMA Scrn (Ecstasy) U Benzodiazepines Scrn Urine Cocaine Screen U Marijuana (THC) Screen Urine Specific [place] Ur Creatinine 08/07/24 07:50 WBC 17.0 H RBC 4.25 L Hgb 12.5 L Hct 37.9 L MCV 89.0 MCH 29.4 MCHC 33.0 RDW 15.4 H Plt Count 245 Neut % (Auto) 80.5 H Lymph % (Auto) 13.9 L [place] % (Auto) 5.4 Eos % (Auto) 0.0 L Baso % (Auto) 0.2 Neut # (Auto) 45416 H Lymph # (Auto) 2400 [place] # (Auto) 900 Eos # (Auto) 0 Baso # (Auto) 0 Total Counted Seg Neutrophils % Band Neutrophils % Lymphocytes % (Manual) Monocytes % (Manual) Eosinophils % (Manual) Metamyelocytes % Neutrophils # (Manual) Nucleated RBCs RBC Morphology Anisocytosis ABG Sample Site ABG pH ABG pCO2 ABG pO2 ABG HCO3 ABG Total CO2 ABG O2 Saturation ABG Base Excess Leonel Test O2 Delivery Device Sodium 123 L Potassium 4.2 Chloride 94 L Carbon Dioxide 19 L BUN 20 Creatinine 1.29 H Estimated GFR 57 L BUN/Creatinine Ratio 15.5 Glucose 145 H Lactate Calcium 7.6 L Magnesium Total Bilirubin 0.2 AST 107 H ALT 34 Alkaline Phosphatase 56 Total Creatine Kinase 3913 H D Troponin I 0.143 H* Total Protein 6.4 Albumin 2.7 L Globulin 3.7 Albumin/Globulin Ratio 0.7 L Lipase Urine Color Urine Appearance Urine pH Ur Specific [place] Urine Protein Urine Glucose (UA) Urine Ketones Urine Occult Blood Urine Nitrate Urine Bilirubin Urine Urobilinogen Ur Leukocyte Esterase Urine RBC Urine WBC Ur Squamous Epith Cells Urine Bacteria Ur Culture Indicated? Vol Urine Centrifuged U Opiates 300ng/mL cut Ur Oxycodone Screen Urine Methadone Screen Ur Barbiturates Screen U Tricyclic Antidepress Ur Phencyclidine Scrn Ur Amphetamines Screen U Methamphetamines Scrn Ur MDMA Scrn (Ecstasy) U Benzodiazepines Scrn Urine Cocaine Screen U Marijuana (THC) Screen Urine Specific [place] Ur Creatinine Assessment & Plan Assessment and plan (1) Septic shock: Status: Acute (2) Pneumonia: Qualifiers: Laterality: unspecified laterality Lung location: unspecified part of lung Pneumonia type: due to unspecified organism Qualified Code(s): J18.9 - Pneumonia, unspecified organism Status: Acute (3) Altered mental status: Qualifiers: Altered mental status type: unspecified Qualified Code(s): R41.82 - Altered mental status, unspecified Status: Acute (4) Paroxysmal atrial fibrillation with rapid ventricular response: Status: Acute (5) Essential hypertension: Status: Chronic (6) Type 2 diabetes, diet controlled: Problem details: 07/10/2023: A1 6.4% (previous 6.2% 03/19/2022) Status: Acute (7) Developmental disorder of scholastic skills, unspecified: Status: Chronic Assessment & Plan narrative: Aspiration PNA vs pneumonitis, septic shock - mechanical ventilation with Low TV ventilation- adjust tv to 6 ml/kg of idbw, acidosis improved, continue to trend abg, wean fio2 as tolerated - Cefepime, Vancomycin - follow up sputum culture, blood cultures, procalcitonin - r/o flu and covid - Continue IVF- NS at 100/hr - Levophed to maintain map >65 - trend LA, thiamine added to aide lactate clearance --trend troponin, likely elevated in setting of demand, rhabdo --obtain TTE --Trend CK, continue hydration --monitor UOP, replete lytes --NPO for now, will consider feeding tomorrow if LA and pressor requirement improve PAF / HTN - Lovenox therapeutic dosing BID - hold Eliquis and PO BB/CCB while in shock - if rate control becomes an issue will need amio while on pressors/in shock DM - SS q 6 h goal <180 Developmental Disorder / ZEESHAN - [employer] on Depakote, Seroquel and Trazodone - restart with resumed PO REcommend vascular surgery consult- US of subclavian artery- given incidental finding on ct of irregular plaque vs. dissection Time-Based Coding :: 50 minutes spent discussing patient with bedside team and on the chart (including review of chart, obtaining history, reviewing outside data, placing orders, documenting exam and treatment plan, on 08/07/24 Was not able to visulaize patient with camera due to down-time
--- NOTE | 2024-08-07 10:50 | DIET.CONS ---
Dietary Consultation Note Admission Date: 08/07/2024 00:52 Assessment: 78 y M admitted for septic shock, intubated in field. Dietitian screened for pt NPO on vent. PMH of DM last A1c 6.4% in Jun 2023. Pharmacy requested updated A1c%. Current dose propofol is 10 mcg/kg/min providing 150 kcals/day. Per rounds, will consider starting tube feeds tomorrow if LA and pressor requirements improve. Ht: 170 cm Wt: 94.8 kg BMI: 32.8 UBW: 99.393 kg on 10/31/23 (-4.5% weight loss in 9 months, non-severe) Last BM: () MNA: 11 Gerardo Score: 11 Diet: 08/07/24 01:25 NPO Diet Diet Modifications: NPO Type: Strict Labs: RBC 4.25 X10^6/uL (4.5-5.9) L 08/07/24 07:50 Hgb 12.5 g/dL (13.5-17.5) L 08/07/24 07:50 Hct 37.9 % (41-53) L 08/07/24 07:50 Creatinine 1.29 mg/dL (0.66-1.25) H 08/07/24 07:50 Lactate 5.6 mmol/L (0.7-2.1) H* 08/07/24 05:03 Nutrition Diagnosis: Inadequate oral intake r/t mechanical vent aeb NPO status Interventions: Consider initiating enteral nutrition within 24 to 48 hours if pt hemodynamically stable/as medically appropriate. 1. Recc starting Pivot 1.5 at 10 ml/hr and advancing if tolerated by 10 ml/hr Q6H until goal rate of 35 ml/hr. Add 1 prosource protein packet of 11 grams protein Q8H for a total of 3 packets daily. Flush 60 mL Q6H. Feeds provide 630 mL of free water. Pt's fluids needs are 2375 mL (25 mL/kg). IV fluids currently meeting fluid needs. Goal rate + propofol + prosource protein packets provides 1410 kcals and 114 g protein and 145 g carbs providing 100% estimated energy needs and 86% estimated protein needs. EER: 1400 kcals (14 kcals/kg per ASPEN guidelines) 130 g protein (2 g/kg of IBW per ASPEN guidelines) Monitoring/Evaluations: Start of TF, TF rate, tolerance, labs Electronically Signed by: Susan Wellington 08/07/24 10:50 Clinical Dietitian [address] [address]
[2024-08-07 10:54] LABS: Base Excess ABG -0.9 mmol/L (-2-3); Blood Gas Collection Site Right Brachial; Blood Gas Mode Assist Cont Ventilat; HCO3 ABG 21 mmol/L (23-27); Oxygen Saturation ABG 97 % (95-100); PCO2 ABG 28.2 mmHg (35-45); PEEP 5; PO2 ABG 83 mmHg (80-100); Respiratory Rate 14; TCO2 ABG 20 mmol/L (23-27); pH ABG 7.49 (7.35-7.45)
[2024-08-07] MEDS: MAGNESIUM SULFATE 2 GM/50 ML PIGGYBACK IV (10:54)
--- NOTE | 2024-08-07 11:57 | DI.ECHO.S_ITS ---
[facility]+ [facility] : : [address] : : [place] : : [id number] : : Phone: [phone] Echocardiogram Report + + :Name: MIRIAM STEWART Study Date: 08/07/2024 Height: 70 in : :Hospital ReadingLocation: Weight: 208 lb : : Gender: Male BSA: 2.1 m2 : :: 1945 Age: 78 yrs BP: 106/66 mmHg: :Reason For Study: SHOCK : :Ordering Physician: REBECA, : :RUDOLPH Performed By: Koko Ryan : :Referring: RUDOLPH JOSE : + + Interpretation Summary The study quality was technically difficult. The left ventricle is normal in size. Overall left ventricular systolic function is preserved. The ejection fraction is estimated to be 50-55%. The right ventricle is mildly dilated. The right ventricular systolic function is normal. There is no pericardial effusion. No obvious valvular abnormalities. Procedure: A two-dimensional transthoracic echocardiogram with color flow and Doppler was performed. A contrast injection of Definity was performed to improve assessment of LV function. The study quality was technically difficult. Comparison is made with the echocardiogram of 08/04/2021. The patient had frequent PVCs during the exam. Left Ventricle: The left ventricle is normal in size. Left ventricular wall thickness is mildly increased. There is no ventricular septal defect visualized. Overall left ventricular systolic function is preserved. The ejection fraction is estimated to be 50-55%. There are no obvious focal wall motion abnormalities noted but poor endocardial definition reduces the sensitivity for the detection of such. Right Ventricle: The right ventricle is mildly dilated. The right ventricular systolic function is normal. Atria: The left atrial size is normal. Right atrial size is normal. There is no Doppler evidence for an atrial septal defect. Mitral Valve: The mitral valve leaflets are mildly calcified. There is no mitral regurgitation noted. Aortic Valve: The aortic valve is grossly normal. There is moderate aortic valve sclerosis. There is no aortic stenosis. No aortic regurgitation is present. Tricuspid Valve: The tricuspid valve is not well visualized, but is grossly normal. There is a trace or physiologic amount of tricuspid regurgitation. Pulmonic Valve: The pulmonic valve is not well seen, but is grossly normal. There is no pulmonic valvular regurgitation. Great Vessels: The aortic root is normal size. The dimensions of the ascending aorta are normal. The pulmonary artery is normal size. The inferior vena cava appeared normal. Pericardium/ Pleura There is no pericardial effusion. There is no pleural effusion. MMode/2D Measurements & Calculations LVIDd: 4.2 cm LVOT diam: 2.0 cm LVIDs: 2.7 cm Ao root diam: 3.4 cm FS: 35.1 % EPSS: 0.53 cm IVSd: 1.3 cm LVPWd: 1.0 cm LV grande. diameter/BSA (cm/m^2): 2.0 LV sys. diameter/BSA (cm/m^2): 1.3 LA A2 area: 18.5 cm2 RA long axis: 3.9 cm LA A4 area: 22.9 cm2 RA area: 10.9 cm2 LA length (vol): 6.3 cm RA vol: 26.1 ml LA vol: 57.0 ml RA : 12.3 ml/m2 LA vol index: 26.9 ml/m2 IVC diam: 1.9 cm RVD1 (basal): 4.5 cm RVD2 (mid): 3.6 cm TAPSE: 2.5 cm Doppler Measurements & Calculations Ao V2 max: 189.1 cm/sec LVOT Max Jasvir: 95.6 cm/sec Ao V2 mean: 154.5 cm/sec LV V1 max P.7 mmHg Ao max P.3 mmHg LV V1 VTI: 18.5 cm Ao mean P.1 mmHg GEORGIA(I,D): 1.6 cm2 Ao V2 VTI: 37.0 cm GE[place]GIA(V,D): 1.6 cm2 sev ratio: 0.50 GE[place]IA indexed to BSA (cm^2/m^2): 0.75 MV E max jasvir: 69.5 cm/sec TR max jasvir: 218.2 cm/sec MV A max jasvir: 92.7 cm/sec TR max P.0 mmHg MV E/A: 0.75 PA V2 max: 62.0 cm/sec Med Peak E' Jasvir: 3.8 cm/sec PA V2 mean: 40.9 cm/sec E/E' med: 18.4 PA mean P.77 mmHg Lat Peak E' Jasvir: 6.8 cm/sec PA pr(Accel): 17.3 mmHg E/E' lat: 10.2 E/e' average: 14.3 MV dec time: 0.20 sec SV(LVOT): 59.2 ml Reading Physician:05:21 PM
[2024-08-07 12:42] LABS: Procalcitonin 11.6 ng/mL (<0.5)
[2024-08-07] MEDS: HYDROCORTISONE 100 MG/2 ML VIAL 50 MG IV ×2 (12:45→17:55)
[2024-08-07] MEDS: THIAMINE 200 MG in SODIUM CHLORIDE 0.9% 100 ML 408 MG IV (12:45)
[2024-08-07 13:20] LABS: Alanine Aminotransferase 29 IU/L (<50); Albumin 2.4 g/dL (3.5-5.0); Albumin Globulin Ratio 0.7 (1.0-2.8); Alkaline Phosphatase 50 U/L (38-126); Aspartate Aminotransferase 95 IU/L (17-59); BUN Creatinine Ratio 17.4 (6-22); Bilirubin Total 0.2 mg/dL (0.2-1.3); Blood Urea Nitrogen 20 mg/dL (9-20); Calcium 7.2 mg/dL (8.4-10.2); Carbon Dioxide 21 mmol/L (22-32); Chloride 95 mmol/L (98-107); Estimated Glomerular Filt Rate > 60 mL/min (>60); Globulin 3.3 g/dL (1.7-4.1); Glucose 146 mg/dL (80-110); HEMOLYSIS < 15 (0-50); Potassium 3.7 mmol/L (3.4-5.1); Sodium 125 mmol/L (137-145); Total Protein 5.7 g/dL (6.3-8.2)
[2024-08-07 13:26] LABS: Creatine Kinase 2972 U/L (55-170)
[2024-08-07 13:32] LABS: Troponin I 0.112 ng/mL (0.01-0.034)
[2024-08-07 14:12] LABS: MRSA (Nasal) PCR DETECTED (Not Detect)
[2024-08-07 14:51] LABS: Influenza A - CEPHEID Flu A NEGATIVE (NEGATIVE); Influenza B - CEPHEID Flu B NEGATIVE (NEGATIVE)
[2024-08-07 14:52] LABS: COVID-19 CEPHEID 4-PLEX PCR Negative (Negative)
[2024-08-07] MEDS: propofoL 1,000 MG/100 ML VIAL 5.688 MG IV (15:05)
--- NOTE | 2024-08-07 15:29 | CM.DANOTE ---
Initial DCP Assessment Note Pt is a 78 yo male, resident at [facility] in [place], PMH includes developmental delay, Schizophrenia in full remission- on Depakote, Seroquel and Trazodone presents unresponsive, now intubated and admitted for further management of septic shock, aspiration PNA suspected w/acute resp failure. PCP: Koko Urban Payer: EDIE/RACHEL Reviewed chart, pt discussed in multidisciplinary rounds this morning. Patient's supportive brother Hector has made himself available for any questions/concerns about patient that may arise. Brother transports patient to [facility] and manages all medical and financial decision making for patient. Plan: Discharge back to [facility] via private auto vs wheelchair is anticipated. [facility] contacts: ED Nuha Camargo cell P [phone], office P [phone] email: [email or web address] Coordinator Juanpablo P [phone] CM team will plan to follow clinical course closely. SANTOSH Holt Discharge Planning/Care Management CM Discharge Assessment Start: 08/07/24 15:23 Freq: Status: Active Protocol: Document 08/07/24 15:24 TOO (Rec: 08/07/24 15:29 TOO [id number]) Discharge Planning Assessment Assigned Septic Technician SANTOSH Camargo DPOA/Assigned Designee Name brother Jones Contact Information [phone] Advance Directives? No History Provided By Medical Record Prior Living Arrangements Assisted Living Comment [facility] Type of transporation used prior to Relies on Others admit Facility Name Admitted From: Other Willing to Return to Facility? Yes: [facility] in [place] Independent with ADL's No Is patient alert and oriented? No Needs Assistance With Bathing,Grooming,Meal Prep, Toileting,Managing Medications ,Home Chores / Shopping Barriers to Discharge No Comment Return to [facility] is anticipated. Coordinate with brothvanesa Young. Discharge Plan Assisted Care Facility Transportation Arrangement Wheelchair Referrals Initiated None needed
[2024-08-07] MEDS: NOREPINEPHRINE BITARTRATE/D5W 4 MG/250 ML PLAST..BAG 53.326 MG IV (15:35)
[2024-08-07 17:18] LABS: Base Excess ABG -0.4 mmol/L (-2-3); HCO3 ABG 23 mmol/L (23-27); Oxygen Saturation ABG 98 % (95-100); PCO2 ABG 31.4 mmHg (35-45); PO2 ABG 99 mmHg (80-100); TCO2 ABG 22 mmol/L (23-27); pH ABG 7.47 (7.35-7.45)
[2024-08-07 18:17] LABS: Sodium 126 mmol/L (137-145)
[2024-08-07] MEDS: AMIODARONE 150 MG/100 ML PIGGYBACK 600 MG IV (19:35)
--- NOTE | 2024-08-07 19:36 | PM.EICU.INT ---
Teleintensivist Intervention Date/Time Was camera activated?: Yes Date Patient Seen: 08/07/24 Time Patient Seen: 19:37 Issue(s) Addressed Issue(s): Arrhythmia Intervention(s) :: Afib with RVR noted. This had apparently been occuring throughout the day but persistent this evening. He has a history of pAfib. Electrolytes adequate. Febrile but received Tylenol and cooling. Adequately sedated and pain appears to be controlled. Currently on Propofol and Levophe drips. Given persistent Afib with RVR to the 150s-160s and pressor needs, will start Amiodarone. Bolus and drip have been ordered. Discussed with bedside RN. Plan discussed with: Nurse
[2024-08-07 20:42] LABS: Add Manual Diff / Slide Review NO; Basophils Absolute Auto 0 /uL (0-100); Basophils Percent Auto 0.1 % (0-2); Eosinophils Absolute Auto 0 /uL (0-450); Hematocrit 36.3 % (41-53); Lymphocytes Absolute Auto 1900 /uL (1100-4500); Lymphocytes Percent Auto 13.2 % (25-40); Mean Corpuscular HGB Conc 32.9 % (30-36); Mean Corpuscular Hemoglobin 29.3 PG (26-34); Mean Corpuscular Volume 89.1 fL (80-100); Monocytes Absolute Auto 800 /uL (0-900); Monocytes Percent Auto 5.6 % (3-14); Neutrophils Absolute Auto 11900 /uL (1500-7000); Neutrophils Percent Auto 81.1 % (50-75); Platelet Count 213 X10^3/uL (150-400); Red Blood Cell Count 4.08 X10^6/uL (4.5-5.9); Red Cell Distribution Width 15.6 % (11.6-14.8); White Blood Cell Count 14.7 X10^3/uL (4.5-11.0)
[2024-08-07 20:50] LABS: Lactate (Lactic Acid) 2.2 mmol/L (0.7-2.1)
[2024-08-07] MEDS: AMIODARONE 360 MG/200 ML PIGGYBACK 33.3 MG IV (20:50)
[2024-08-07] MEDS: NOREPINEPHRINE BITARTRATE/D5W 4 MG/250 ML PLAST..BAG IV (22:05)
[2024-08-07 22:13] LABS: Reflexed Lactate in 2 Hours Y
[2024-08-07 22:55] LABS: Lactate 2HR (Lactic Acid Rflx) 2.3 mmol/L (0.7-2.1); Magnesium 1.9 mg/dL (1.6-2.3)
[2024-08-07 22:58] LABS: Alanine Aminotransferase 28 IU/L (<50); Albumin 2.5 g/dL (3.5-5.0); Albumin Globulin Ratio 0.8 (1.0-2.8); Alkaline Phosphatase 55 U/L (38-126); Aspartate Aminotransferase 78 IU/L (17-59); BUN Creatinine Ratio 16.5 (6-22); Bilirubin Total 0.2 mg/dL (0.2-1.3); Blood Urea Nitrogen 17 mg/dL (9-20); Calcium 7.3 mg/dL (8.4-10.2); Carbon Dioxide 25 mmol/L (22-32); Estimated Glomerular Filt Rate > 60 mL/min (>60); Globulin 3.3 g/dL (1.7-4.1); Glucose 165 mg/dL (80-110); HEMOLYSIS < 15 (0-50); Total Protein 5.8 g/dL (6.3-8.2)
[2024-08-07 23:04] LABS: Creatine Kinase 2152 U/L (55-170)
[2024-08-07 23:08] LABS: Chloride 98 mmol/L (98-107); Potassium 3.5 mmol/L (3.4-5.1); Sodium 127 mmol/L (137-145)
[2024-08-07 23:09] LABS: Troponin I 0.084 ng/mL (0.01-0.034)
[2024-08-08] VITALS (109 sets, daily range): BP systolic 79–176; BP diastolic 55–99; PULSE 66–144; RESP 12–24; TEMP 36.5–37.6; O2SAT 89–99
[2024-08-08] MEDS: HYDROCORTISONE 100 MG/2 ML VIAL 50 MG IV ×4 (00:45→18:49)
[2024-08-08] MEDS: NOREPINEPHRINE BITARTRATE/D5W 4 MG/250 ML PLAST..BAG IV ×3 (01:15→02:39)
[2024-08-08] MEDS: CHLORHEXIDINE GLUCONATE 15 ML CUP PO ×2 (02:55→08:55)
[2024-08-08] MEDS: VANCOMYCIN 1,250 MG/250 ML PIGGYBACK 250 MG IV (02:55)
[2024-08-08] MEDS: propofoL 1,000 MG/100 ML VIAL 5.688 MG IV (02:59)
[2024-08-08] MEDS: AMIODARONE 360 MG/200 ML PIGGYBACK 16.7 MG IV (03:00)
[2024-08-08] MEDS: SODIUM CHLORIDE 0.9% 1,000 ML 100 ML IV (03:29)
[2024-08-08 04:57] LABS: Add Manual Diff / Slide Review NO; Basophils Absolute Auto 0 /uL (0-100); Basophils Percent Auto 0.1 % (0-2); Eosinophils Absolute Auto 0 /uL (0-450); Hematocrit 31.8 % (41-53); Hemoglobin 10.7 g/dL (13.5-17.5); Lymphocytes Absolute Auto 1600 /uL (1100-4500); Mean Corpuscular HGB Conc 33.6 % (30-36); Mean Corpuscular Hemoglobin 29.9 PG (26-34); Monocytes Absolute Auto 800 /uL (0-900); Monocytes Percent Auto 8.3 % (3-14); Neutrophils Absolute Auto 7100 /uL (1500-7000); Neutrophils Percent Auto 74.6 % (50-75); Platelet Count 146 X10^3/uL (150-400); Red Blood Cell Count 3.57 X10^6/uL (4.5-5.9); Red Cell Distribution Width 15.9 % (11.6-14.8); White Blood Cell Count 9.5 X10^3/uL (4.5-11.0)
[2024-08-08 05:07] LABS: Alanine Aminotransferase 25 IU/L (<50); Albumin 2.3 g/dL (3.5-5.0); Albumin Globulin Ratio 0.7 (1.0-2.8); Alkaline Phosphatase 53 U/L (38-126); Aspartate Aminotransferase 70 IU/L (17-59); BUN Creatinine Ratio 17.8 (6-22); Bilirubin Total 0.2 mg/dL (0.2-1.3); Blood Urea Nitrogen 16 mg/dL (9-20); Calcium 7.1 mg/dL (8.4-10.2); Carbon Dioxide 22 mmol/L (22-32); Chloride 98 mmol/L (98-107); Estimated Glomerular Filt Rate > 60 mL/min (>60); Globulin 3.3 g/dL (1.7-4.1); Glucose 183 mg/dL (80-110); HEMOLYSIS < 15 (0-50); Potassium 3.2 mmol/L (3.4-5.1); Sodium 127 mmol/L (137-145); Total Protein 5.6 g/dL (6.3-8.2)
--- NOTE | 2024-08-08 05:32 | RT ---
adjusted vent to pts ideal body weight and he is 6.5L per kg on the 480 6L per kg the community placement worker wanted him on
--- NOTE | 2024-08-08 06:00 | DI.RAD.S_ITS ---
PROCEDURE: XR CHEST 1V INDICATIONS: while intubated, monitor pna, ett TECHNIQUE: One view of the chest was acquired. COMPARISON: [facility], CT, CT ANGIO CHEST ABDOMEN PELVIS, 08/06/2024, 19:56. [facility], CR, XR CHEST 1V, 08/06/2024, 21:52. [facility], CR, XR CHEST 1V, 08/06/2024, 20:30. FINDINGS: Surgical changes and devices: -Endotracheal tube in the midtrachea. -Enteric tube coursing into the stomach. Lungs and pleura: Left basilar airspace opacity is seen. Blunting of the costophrenic angles. No pneumothorax. Mediastinum: Mediastinal contours appear unchanged. Heart size is normal. Bones and chest wall: No suspicious bony lesions. Overlying soft tissues appear unremarkable. IMPRESSION: 1. Tubes project in the expected location. Enteric tube coursing into the stomach, new. 2. Left basilar opacity, similar. This report is concordant with the overnight preliminary interpretation. Dictated by: Yash Pantoja M.D. on 08/08/2024 at 7:46 Approved by: Yash Pantoja M.D. on 08/08/2024 at 7:49
--- NOTE | 2024-08-08 06:05 | PC.NURSE ---
At start of shift pt presented with Afib RVR up to 155 bpm. Tele peel oven tender consulted, orders for amiodarone given (see MAR for admin), By midnight HR consistently ~100 bpm. Titrated norepi drip throughout shift for map >65 (see MAR). Pt appears sensitive to very small adjustments. @ 0315 while providing oral/skincare pt opened eyes, maintaining eye contact & responding with nod/shake of head to name/simple questions. When informed that brother Hector had been updated, pt smiled. Follows commands to squeeze hands, and when to told to close eyes and rest pt immediately closed eyes. FiO2 titrated from 60% to 35% over course of shift.
--- NOTE | 2024-08-08 08:10 | PC.NURSE ---
Addendum entered by Lissett Alford R.N. 08/08/24 16:57: 1200 spoke to brothvanesa Young, updated on pt status, brother will come to see pt shortly, no further pt needs at this time Addendum entered by Lissett Alford R.N. 08/08/24 11:48: 1148 Called pt brother Hector, left message to return call Addendum entered by Lissett Alford R.N. 08/08/24 11:41: [address] Bell (tele resin coater) ok to extubate when pt is deemed ready, pt extubated at 1111, tolerating room air at this time, has copious amounts of secretions, suctioning with bedside yonker, able to make needs known, care ongoing 1101 Norepi off BP 130/82 Addendum entered by Lissett Alford R.N. 08/08/24 09:35: 0930 All sedation off, RT at bedside, pt awake and able to follow commands, SBT started 09 Pt not able to consistently initiate breaths, vent assist turned back on, pt does not want to be sedated at this time, is awake and watching TV, will attempt again later this afternoon. No further needs at this time Original Note: SBT initiated @ 0808 with reduction of Prop. from 10 mcg/kg/min to 5 mcg/kg/min. Pt tolerating reduction in sedation well at this time, care ongoing
[2024-08-08] MEDS: ENOXAPARIN 100 MG/ML SYRINGE 95 MG SUBCUT ×2 (08:46→20:10)
[2024-08-08] MEDS: PANTOPRAZOLE 40 MG VIAL IV (08:47)
[2024-08-08] MEDS: THIAMINE 200 MG in SODIUM CHLORIDE 0.9% 100 ML 408 MG IV (08:57)
--- NOTE | 2024-08-08 09:03 | PM.PN.IH.1 ---
Subjective Subjective Date Patient Seen: 08/08/24 Time Patient Seen: 09:03 Interval history: 78-year-old male, patient of Dr. Stein (although seen only twice by him, most recently October of 2023), admitted via emergency department after being found poorly responsive hypotensive hypoxic at his care facility. Patient has some level of developmental delay. Patient also diabetic with paroxysmal atrial fibrillation and hypertension. He was admitted by the hospitalist service and is currently being managed by the tele administrative manager service as he was intubated in the field required interosseous epinephrine to support blood pressure etcetera Patient's ventilatory status remained stable on the ventilator. He went into atrial fibrillation with rapid ventricular response yesterday and he was started on a amiodarone continuous infusion which seems to have slowed his heart rate Patient on very low-dose norepinephrine intermittently. On FiO2 of 45%. Currently undergoing spontaneous breathing trial with reduction in sedation Lab work shows mild drop in H&H, new hypokalemia, but persistently normal renal function and glucose of 183. Sodium is somewhat improved over admission as well Exam Vital Signs (past 8 hours): - 08/08/24 01:15 08/08/24 01:18 08/08/24 01:18 Temperature 98.1 F 98.1 F Pulse Rate 104 H 105 H Respiratory Rate 14 14 Blood Pressure 138/69 Pulse Oximetry 99 98 08/08/24 01:30 08/08/24 01:30 08/08/24 01:45 Temperature 97.9 F 97.9 F Pulse Rate 102 H 122 H Respiratory Rate 14 15 Blood Pressure 143/88 H Pulse Oximetry 99 99 08/08/24 02:00 08/08/24 02:00 08/08/24 02:15 Temperature 97.9 F 98.1 F Pulse Rate 113 H 107 H Respiratory Rate 14 15 Blood Pressure 125/84 Pulse Oximetry 98 96 08/08/24 02:30 08/08/24 02:31 08/08/24 02:31 Temperature 98.1 F 98.1 F Pulse Rate 107 H 113 H Respiratory Rate 14 15 Blood Pressure 79/55 L Pulse Oximetry 96 96 08/08/24 02:39 08/08/24 02:39 08/08/24 02:45 Temperature 98.1 F 98.1 F Pulse Rate 96 H 100 H Respiratory Rate 14 14 Blood Pressure 100/61 Pulse Oximetry 98 98 08/08/24 03:00 08/08/24 03:01 08/08/24 03:01 Temperature 97.9 F 97.9 F Pulse Rate 103 H 102 H Respiratory Rate 19 14 Blood Pressure 135/77 Pulse Oximetry 98 98 08/08/24 03:15 08/08/24 03:30 08/08/24 03:30 Temperature 97.7 F 97.7 F Pulse Rate 109 H 128 H Respiratory Rate 21 19 Blood Pressure 142/87 H Pulse Oximetry 97 98 08/08/24 03:45 08/08/24 04:00 08/08/24 04:09 Temperature 97.9 F 97.9 F 97.9 F Pulse Rate 108 H 108 H 107 H Respiratory Rate 14 14 14 Blood Pressure Pulse Oximetry 98 95 95 08/08/24 04:09 08/08/24 04:14 08/08/24 04:14 Temperature 97.9 F Pulse Rate 107 H Respiratory Rate 14 Blood Pressure 82/61 L 90/62 Pulse Oximetry 97 08/08/24 04:15 08/08/24 04:30 08/08/24 04:30 Temperature 97.9 F 97.9 F Pulse Rate 103 H 101 H Respiratory Rate 14 14 Blood Pressure 114/81 Pulse Oximetry 97 99 08/08/24 04:45 08/08/24 05:00 08/08/24 05:00 Temperature 97.7 F 97.7 F Pulse Rate 107 H 108 H Respiratory Rate 14 15 Blood Pressure 144/99 H Pulse Oximetry 99 99 08/08/24 05:15 08/08/24 05:30 08/08/24 05:30 Temperature 97.9 F 97.9 F Pulse Rate 107 H 102 H Respiratory Rate 16 15 Blood Pressure 134/80 Pulse Oximetry 99 97 08/08/24 05:45 08/08/24 06:00 08/08/24 06:00 Temperature 98.1 F 98.1 F Pulse Rate 107 H 115 H Respiratory Rate 14 23 Blood Pressure 144/75 H Pulse Oximetry 97 96 08/08/24 07:00 08/08/24 07:00 08/08/24 08:01 Temperature 98.6 F Pulse Rate 104 H Respiratory Rate 14 Blood Pressure 133/84 172/96 H Pulse Oximetry 96 08/08/24 08:01 08/08/24 08:51 Temperature 98.4 F 98.8 F Pulse Rate 111 H 113 H Respiratory Rate 14 17 Blood Pressure Pulse Oximetry 98 96 Fraction of Inspired Oxygen 85 Oxygen Delivery Method Mechanical Ventilation Objective Labs 08/08/24 04:35 08/08/24 04:35 Labs: Laboratory Results - last 24 hr 08/07/24 08/07/24 08/07/24 07:50 10:50 12:20 WBC 17.0 H RBC 4.25 L Hgb 12.5 L Hct 37.9 L MCV 89.0 MCH 29.4 MCHC 33.0 RDW 15.4 H Plt Count 245 Neut % (Auto) 80.5 H Lymph % (Auto) 13.9 L Evans % (Auto) 5.4 Eos % (Auto) 0.0 L Baso % (Auto) 0.2 Neut # (Auto) 39774 H Lymph # (Auto) 2400 Evans # (Auto) 900 Eos # (Auto) 0 Baso # (Auto) 0 ABG Sample Site Right brachial ABG pH 7.49 H ABG pCO2 28.2 L ABG pO2 83 ABG HCO3 21 L ABG Total CO2 20 L ABG O2 Saturation 97 ABG Base Excess -0.9 Leonel Test N/a Respiration Rate 14 Mode of Support Assist cont ventilat FiO2 % 65.0 % PEEP or CPAP 5 Sodium 123 L Potassium 4.2 Chloride 94 L Carbon Dioxide 19 L BUN 20 Creatinine 1.29 H Estimated GFR 57 L BUN/Creatinine Ratio 15.5 Glucose 145 H Lactate Calcium 7.6 L Magnesium Total Bilirubin 0.2 AST 107 H ALT 34 Alkaline Phosphatase 56 Total Creatine Kinase Troponin I Total Protein 6.4 Albumin 2.7 L Globulin 3.7 Albumin/Globulin Ratio 0.7 L Procalcitonin Nasal Screen MRSA (PCR) Detected H SARS-CoV-2 (PCR) Negative Influenza A (RT-PCR) Flu a negative Influenza B (RT-PCR) Flu b negative 08/07/24 08/07/24 08/07/24 12:42 17:14 18:00 WBC RBC Hgb Hct MCV MCH MCHC RDW Plt Count Neut % (Auto) Lymph % (Auto) Evans % (Auto) Eos % (Auto) Baso % (Auto) Neut # (Auto) Lymph # (Auto) Evans # (Auto) Eos # (Auto) Baso # (Auto) ABG Sample Site ABG pH 7.47 H ABG pCO2 31.4 L ABG pO2 99 ABG HCO3 23 ABG Total CO2 22 L ABG O2 Saturation 98 ABG Base Excess -0.4 Leonel Test Respiration Rate Mode of Support FiO2 % PEEP or CPAP Sodium 125 L 126 L Potassium 3.7 Chloride 95 L Carbon Dioxide 21 L BUN 20 Creatinine 1.15 Estimated GFR > 60 BUN/Creatinine Ratio 17.4 Glucose 146 H Lactate Calcium 7.2 L Magnesium Total Bilirubin 0.2 AST 95 H ALT 29 Alkaline Phosphatase 50 Total Creatine Kinase 2972 H Troponin I 0.112 H Total Protein 5.7 L Albumin 2.4 L Globulin 3.3 Albumin/Globulin Ratio 0.7 L Procalcitonin Nasal Screen MRSA (PCR) SARS-CoV-2 (PCR) Influenza A (RT-PCR) Influenza B (RT-PCR) 08/07/24 08/07/24 08/07/24 20:15 22:17 Unknown WBC 14.7 H RBC 4.08 L Hgb 12.0 L Hct 36.3 L MCV 89.1 MCH 29.3 MCHC 32.9 RDW 15.6 H Plt Count 213 Neut % (Auto) 81.1 H Lymph % (Auto) 13.2 L Evans % (Auto) 5.6 Eos % (Auto) 0.0 L Baso % (Auto) 0.1 Neut # (Auto) 07774 H Lymph # (Auto) 1900 Evans # (Auto) 800 Eos # (Auto) 0 Baso # (Auto) 0 ABG Sample Site ABG pH ABG pCO2 ABG pO2 ABG HCO3 ABG Total CO2 ABG O2 Saturation ABG Base Excess Leonel Test Respiration Rate Mode of Support FiO2 % PEEP or CPAP Sodium 127 L Potassium 3.5 Chloride 98 Carbon Dioxide 25 BUN 17 Creatinine 1.03 Estimated GFR > 60 BUN/Creatinine Ratio 16.5 Glucose 165 H Lactate 2.2 H 2.3 H Calcium 7.3 L Magnesium 1.9 Total Bilirubin 0.2 AST 78 H ALT 28 Alkaline Phosphatase 55 Total Creatine Kinase 2152 H Troponin I 0.084 H Total Protein 5.8 L Albumin 2.5 L Globulin 3.3 Albumin/Globulin Ratio 0.8 L Procalcitonin 11.6 H Nasal Screen MRSA (PCR) SARS-CoV-2 (PCR) Influenza A (RT-PCR) Influenza B (RT-PCR) 08/08/24 04:35 WBC 9.5 RBC 3.57 L Hgb 10.7 L Hct 31.8 L MCV 89.0 MCH 29.9 MCHC 33.6 RDW 15.9 H Plt Count 146 L Neut % (Auto) 74.6 Lymph % (Auto) 17.0 L Evans % (Auto) 8.3 Eos % (Auto) 0.0 L Baso % (Auto) 0.1 Neut # (Auto) 7100 H Lymph # (Auto) 1600 Evans # (Auto) 800 Eos # (Auto) 0 Baso # (Auto) 0 ABG Sample Site ABG pH ABG pCO2 ABG pO2 ABG HCO3 ABG Total CO2 ABG O2 Saturation ABG Base Excess Leonel Test Respiration Rate Mode of Support FiO2 % PEEP or CPAP Sodium 127 L Potassium 3.2 L Chloride 98 Carbon Dioxide 22 BUN 16 Creatinine 0.90 Estimated GFR > 60 BUN/Creatinine Ratio 17.8 Glucose 183 H Lactate Calcium 7.1 L Magnesium Total Bilirubin 0.2 AST 70 H ALT 25 Alkaline Phosphatase 53 Total Creatine Kinase Troponin I Total Protein 5.6 L Albumin 2.3 L Globulin 3.3 Albumin/Globulin Ratio 0.7 L Procalcitonin Nasal Screen MRSA (PCR) SARS-CoV-2 (PCR) Influenza A (RT-PCR) Influenza B (RT-PCR) [facility] Medical History Schizophrenia in full remission with history of multiple episodes Surgical History Anesthesia Status post hernia repair (~2005) Status post appendectomy Family History Father History of heart disease Stroke Mother History of heart disease Stroke Grandfather History of heart disease Grandmother Stroke Grandfather History of heart disease Grandmother Cancer Social History household members: spouse Smoking Status: Never smoker alcohol intake: never Assessment & Plan Assessment & Plan narrative: 1. Acute Respiratory failure secondary to infectious etiology-continue with ventilator as per tele administrative manager. Continue with current parental antibiotics which are vancomycin plus cefepime. Wean as able per tele administrative manager from ventilator. Sedation for ventilation etcetera as per tele administrative manager 2. Atrial fibrillation-better rate control on amiodarone. Complete amiodarone infusion and re-evaluate 3. Diabetes-continue with insulin coverage based on fingersticks 4. Nutrition-as per tele administrative manager. If patient appears to be weaning from vent maybe able to hold off on enteral feeding until patient was extubated 5. Hypokalemia-replace with parental potassium and recheck including magnesium 6. Hyponatremia-somewhat improved from admission numbers. Continue to monitor for now. 7. 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 Tele administrative manager recommended vascular surgery consult not available at this institution. Could consider repeat imaging to look for changes. Based on appearance on original CT that has not appear to be an urgent issue at this time Time-Based Coding :: [TOTAL MINUTES] spent with patient and on the chart (including review of chart, obtaining history, exam, reviewing outside data, placing orders, documenting exam and treatment plan, and counseling patient) on [DATE]. [employer]er Document charge(s): Yes Charge Codes Subsequent inpatient/observation care: 09852
[2024-08-08] MEDS: CEFEPIME 2 GM in SODIUM CHLORIDE 0.9% 100 ML IV ×2 (09:42→21:16)
[2024-08-08] MEDS: POTASSIUM CHLORIDE IN WATER 10 MEQ/100 ML PIGGYBACK 100 MEQ IV ×6 (09:44→14:36)
--- NOTE | 2024-08-08 10:04 | PM.PN.EICU ---
Subjective Subjective IF CAMERA ACTIVATED, patient seen via real-time interactive audiovisual communication: Camera activated Consent obtained for tele-security officers and guards care: Yes Patient Location: ICU Provider location (State): Other participants/roles: RN Interval history: Pt on small dose of levo, weaning off Propofol, developed Afib w RVR overnight for which he is on Amio drip. Per nuse following simple command, CXR improving, minimal vent support, plan for SBT and extubation if passed, hyponatremia likely SIADH, stopping IV fluid, giving 50 gm of albumin 25% to wean off levo. 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 Recommend vascular surgery consult- US of subclavian artery- given incidental finding on ct of irregular plaque vs. dissection Current Medications Current Medications Medications: Home Medications divalproex 125 mg tablet,delayed release (Depakote) 375 mg (3 x 125 mg) PO BID #180 tabs 06/23/22 [Rx Confirmed 08/08/24] acetaminophen 325 mg tablet 650 mg (2 x 325 mg) PO QID #240 tabs 06/27/23 [Rx Confirmed 08/08/24] allopurinol 100 mg tablet 100 mg PO DAILY #30 tabs 06/27/23 [Rx Confirmed 08/08/24] apixaban 5 mg tablet (Eliquis) See Rx Instructions .Route .COMPLEX #60 ea 06/27/23 [Rx Confirmed 08/08/24] loratadine 10 mg tablet 10 mg PO DAILY #30 tabs 06/27/23 [Rx Confirmed 08/08/24] metoprolol tartrate 25 mg tablet 25 mg PO BID #60 tabs 06/27/23 [Rx Confirmed 08/08/24] quetiapine 100 mg tablet See Rx Instructions PO .COMPLEX #120 tabs 06/27/23 [Rx Confirmed 08/08/24] tamsulosin 0.4 mg capsule (Flomax) 0.8 mg (2 x 0.4 mg) PO BEDTIME #60 caps 06/27/23 [Rx Confirmed 08/08/24] trazodone 50 mg tablet 50 mg PO BEDTIME #30 tabs 06/27/23 [Rx Confirmed 08/08/24] diltiazem HCl 30 mg tablet 30 mg PO QID #120 tabs 07/08/23 [Rx Confirmed 08/08/24] polyethylene glycol 3350 17 gram/dose oral powder 17 g PO DAILY PRN constipation #510 grams 06/25/24 [Rx Confirmed 08/08/24] Visit Medications (administered) Generic Name Dose Route Start Last Admin Trade Name Freq PRN Reason Stop Dose Admin Chlorhexidine Gluconate 15 ml 08/08/24 03:00 08/08/24 08:55 Chlorhexidine Gluconate 15 Ml Cup PO 15 ml Q6H ZEESHAN Administration Enoxaparin Sodium 95 mg 08/07/24 09:00 08/08/24 08:46 Enoxaparin 100 Mg/Ml Syringe SUBCUT 95 mg BID ZEESHAN Administration Hydrocortisone 50 mg 08/07/24 12:00 08/08/24 07:20 Hydrocortisone 100 Mg/2 Ml Vial IV 50 mg Q6HR ZEESHAN Administration NOREPINEPHRINE BITARTRATE/D5W 4 mg in 250 mls @ 35.55 mls/hr 08/06/24 20:15 08/08/24 08:03 Levophed IV 0 mcg/kg/min TITRATE ZEESHAN 0.04 mls/hr Titration Protocol 0.1 MCG/KG/MIN Propofol 1,000 mg in 100 mls @ 2.844 mls/hr 08/06/24 23:45 08/08/24 08:41 Diprivan IV 0 mcg/kg/min TITRATE ZEESHAN 0 mls/hr Titration Protocol 5 MCG/KG/MIN Cefepime HCl 2 gm/ Sodium 100 mls @ 200 mls/hr 08/07/24 09:45 08/08/24 09:42 Chloride IV 200 mls/hr Q12H ZEESHAN Administration Sodium Chloride 1,000 mls @ 100 mls/hr 08/07/24 02:00 08/08/24 03:29 Normal Saline 0.9% IV 100 mls/hr CONT ZEESHAN Administration Vancomycin HCl 1,250 mg in 250 mls @ 250 mls/hr 08/08/24 03:00 08/08/24 04:34 Vancomycin IV Infused Q24H ZEESHAN Infusion Acetaminophen 1,000 mg in 100 mls @ 400 mls/hr 08/07/24 10:17 08/07/24 19:00 Ofirmev IV Infused Q6H PRN Infusion Fever/Mild Pain (1-3) Thiamine HCl 200 mg/ Sodium 102 mls @ 408 mls/hr 08/07/24 11:30 08/08/24 08:57 Chloride IV 408 mls/hr DAILY ZEESHAN Administration Amiodarone HCl/Dextrose 360 mg in 200 mls @ 16.7 mls/hr 08/08/24 01:30 08/08/24 03:00 Nexterone IV 08/08/24 13:29 16.7 mls/hr CONT ZEESHAN 16.7 mls/hr Administration Protocol POTASSIUM CHLORIDE IN WATER 10 meq in 100 mls @ 100 mls/hr 08/08/24 09:15 08/08/24 09:44 Potassium Cl 10 Meq/100 Ml Karolyn IV 08/08/24 15:14 100 mls/hr Q1H ZEESHAN Administration Insulin Human Lispro 0 unit 08/08/24 03:00 08/08/24 08:40 Insulin Lispro 100 Unit/Ml 3ml Vial SUBCUT Not Given Q6H ZEESHAN Protocol Pantoprazole Sodium 40 mg 08/07/24 09:00 08/08/24 08:47 Pantoprazole 40 Mg Vial IV 40 mg DAILY ZEESHAN Administration Objective Ventilator Parameters: Ventilator Settings FiO2 0.35 RT Vent Frequency 14 Ventilator Tidal Volume 480 Exhaled Vt/kg IBW 6.5 Positive End Expiratory 5 Pressure Inspiratory Phase Time 0.95 I:E Ratio 1:3.1 Patient Position HOB >= 30 degrees Labs 08/08/24 04:35 08/08/24 04:35 Labs: Laboratory Results - last 24 hr 08/07/24 08/07/24 08/07/24 10:50 12:20 12:42 WBC RBC Hgb Hct MCV MCH MCHC RDW Plt Count Neut % (Auto) Lymph % (Auto) [place] % (Auto) Eos % (Auto) Baso % (Auto) Neut # (Auto) Lymph # (Auto) [place] # (Auto) Eos # (Auto) Baso # (Auto) ABG Sample Site Right brachial ABG pH 7.49 H ABG pCO2 28.2 L ABG pO2 83 ABG HCO3 21 L ABG Total CO2 20 L ABG O2 Saturation 97 ABG Base Excess -0.9 Leonel Test N/a Respiration Rate 14 Mode of Support Assist cont ventilat FiO2 % 65.0 % PEEP or CPAP 5 Sodium 125 L Potassium 3.7 Chloride 95 L Carbon Dioxide 21 L BUN 20 Creatinine 1.15 Estimated GFR > 60 BUN/Creatinine Ratio 17.4 Glucose 146 H Lactate Calcium 7.2 L Magnesium Total Bilirubin 0.2 AST 95 H ALT 29 Alkaline Phosphatase 50 Total Creatine Kinase 2972 H Troponin I 0.112 H Total Protein 5.7 L Albumin 2.4 L Globulin 3.3 Albumin/Globulin Ratio 0.7 L Procalcitonin Nasal Screen MRSA (PCR) Detected H SARS-CoV-2 (PCR) Negative Influenza A (RT-PCR) Flu a negative Influenza B (RT-PCR) Flu b negative 08/07/24 08/07/24 08/07/24 17:14 18:00 20:15 WBC 14.7 H RBC 4.08 L Hgb 12.0 L Hct 36.3 L MCV 89.1 MCH 29.3 MCHC 32.9 RDW 15.6 H Plt Count 213 Neut % (Auto) 81.1 H Lymph % (Auto) 13.2 L [place] % (Auto) 5.6 Eos % (Auto) 0.0 L Baso % (Auto) 0.1 Neut # (Auto) 44036 H Lymph # (Auto) 1900 [place] # (Auto) 800 Eos # (Auto) 0 Baso # (Auto) 0 ABG Sample Site ABG pH 7.47 H ABG pCO2 31.4 L ABG pO2 99 ABG HCO3 23 ABG Total CO2 22 L ABG O2 Saturation 98 ABG Base Excess -0.4 Leonel Test Respiration Rate Mode of Support FiO2 % PEEP or CPAP Sodium 126 L Potassium Chloride Carbon Dioxide BUN Creatinine Estimated GFR BUN/Creatinine Ratio Glucose Lactate 2.2 H Calcium Magnesium Total Bilirubin AST ALT Alkaline Phosphatase Total Creatine Kinase Troponin I Total Protein Albumin Globulin Albumin/Globulin Ratio Procalcitonin Nasal Screen MRSA (PCR) SARS-CoV-2 (PCR) Influenza A (RT-PCR) Influenza B (RT-PCR) 08/07/24 08/07/2408/08/25 22:17 Unknown 04:35 WBC 9.5 RBC 3.57 L Hgb 10.7 L Hct 31.8 L MCV 89.0 MCH 29.9 MCHC 33.6 RDW 15.9 H Plt Count 146 L Neut % (Auto) 74.6 Lymph % (Auto) 17.0 L [place] % (Auto) 8.3 Eos % (Auto) 0.0 L Baso % (Auto) 0.1 Neut # (Auto) 7100 H Lymph # (Auto) 1600 [place] # (Auto) 800 Eos # (Auto) 0 Baso # (Auto) 0 ABG Sample Site ABG pH ABG pCO2 ABG pO2 ABG HCO3 ABG Total CO2 ABG O2 Saturation ABG Base Excess Leonel Test Respiration Rate Mode of Support FiO2 % PEEP or CPAP Sodium 127 L 127 L Potassium 3.5 3.2 L Chloride 98 98 Carbon Dioxide 25 22 BUN 17 16 Creatinine 1.03 0.90 Estimated GFR > 60 > 60 BUN/Creatinine Ratio 16.5 17.8 Glucose 165 H 183 H Lactate 2.3 H Calcium 7.3 L 7.1 L Magnesium 1.9 Total Bilirubin 0.2 0.2 AST 78 H 70 H ALT 28 25 Alkaline Phosphatase 55 53 Total Creatine Kinase 2152 H Troponin I 0.084 H Total Protein 5.8 L 5.6 L Albumin 2.5 L 2.3 L Globulin 3.3 3.3 Albumin/Globulin Ratio 0.8 L 0.7 L Procalcitonin 11.6 H Nasal Screen MRSA (PCR) SARS-CoV-2 (PCR) Influenza A (RT-PCR) Influenza B (RT-PCR) Exam Vital Signs (past 8 hours): - 08/08/24 02:15 08/08/24 02:30 08/08/24 02:31 Temperature 98.1 F 98.1 F Pulse Rate 107 H 107 H Respiratory Rate 15 14 Blood Pressure 79/55 L Pulse Oximetry 96 96 08/08/24 02:31 08/08/24 02:39 08/08/24 02:39 Temperature 98.1 F 98.1 F Pulse Rate 113 H 96 H Respiratory Rate 15 14 Blood Pressure 100/61 Pulse Oximetry 96 98 08/08/24 02:45 08/08/24 03:00 08/08/24 03:01 Temperature 98.1 F 97.9 F Pulse Rate 100 H 103 H Respiratory Rate 14 19 Blood Pressure 135/77 Pulse Oximetry 98 98 08/08/24 03:01 08/08/24 03:15 08/08/24 03:30 Temperature 97.9 F 97.7 F Pulse Rate 102 H 109 H Respiratory Rate 14 21 Blood Pressure 142/87 H Pulse Oximetry 98 97 08/08/24 03:30 08/08/24 03:45 08/08/24 04:00 Temperature 97.7 F 97.9 F 97.9 F Pulse Rate 128 H 108 H 108 H Respiratory Rate 19 14 14 Blood Pressure Pulse Oximetry 98 98 95 08/08/24 04:09 08/08/24 04:09 08/08/24 04:14 Temperature 97.9 F Pulse Rate 107 H Respiratory Rate 14 Blood Pressure 82/61 L 90/62 Pulse Oximetry 95 08/08/24 04:14 08/08/24 04:15 08/08/24 04:30 Temperature 97.9 F 97.9 F Pulse Rate 107 H 103 H Respiratory Rate 14 14 Blood Pressure 114/81 Pulse Oximetry 97 97 08/08/24 04:30 08/08/24 04:45 08/08/24 05:00 Temperature 97.9 F 97.7 F 97.7 F Pulse Rate 101 H 107 H 108 H Respiratory Rate 14 14 15 Blood Pressure Pulse Oximetry 99 99 99 08/08/24 05:00 08/08/24 05:15 08/08/24 05:30 Temperature 97.9 F Pulse Rate 107 H Respiratory Rate 16 Blood Pressure 144/99 H 134/80 Pulse Oximetry 99 08/08/24 05:30 08/08/24 05:45 08/08/24 06:00 Temperature 97.9 F 98.1 F Pulse Rate 102 H 107 H Respiratory Rate 15 14 Blood Pressure 144/75 H Pulse Oximetry 97 97 08/08/24 06:00 08/08/24 07:00 08/08/24 07:00 Temperature 98.1 F 98.6 F Pulse Rate 115 H 104 H Respiratory Rate 23 14 Blood Pressure 133/84 Pulse Oximetry 96 96 08/08/24 08:01 08/08/24 08:01 08/08/24 08:51 Temperature 98.4 F 98.8 F Pulse Rate 111 H 113 H Respiratory Rate 14 17 Blood Pressure 172/96 H Pulse Oximetry 98 96 08/08/24 09:00 08/08/24 09:00 08/08/24 09:19 Temperature 98.8 F 98.8 F Pulse Rate 112 H 106 H Respiratory Rate 16 14 Blood Pressure 125/82 Pulse Oximetry 97 97 Fraction of Inspired Oxygen 85 Oxygen Delivery Method Mechanical Ventilation Assessment & Plan Time-Based Coding :: [TOTAL MINUTES] spent with patient and on the chart (including review of chart, obtaining history, exam, reviewing outside data, placing orders, documenting exam and treatment plan, and counseling patient) on [DATE].
[2024-08-08] MEDS: ALBUMIN HUMAN 25 GM/100 ML VIAL IV (10:30)
--- NOTE | 2024-08-08 11:17 | CM.DPNOTE ---
DCP Note NETWORK CONTROL SUPERVISOR reviewed EMR per chart review, pt remains intubated today but will attempt to extubate. Per Nikki note, will hold off on enternal feeding for now. potential need for vascular surgery consult not available at . likely will rec to follow up in OP setting due to it not being an urgent concern. Per Julia at , pt was at prior to admission here. November reports that he was there for rehab and they could accept pt back post admission if needed/pt agrees. P: Discharge to [facility] via private auto vs wheelchair vs Return to . would new PASRR be needed? Coordinate with pt/brother Hector ([phone]) and facilities as needed. [facility] ED Nuha Camargo cell P [phone], office P [phone] email: [email or web address] Marketing Strategist Juanpablo P [phone] CM team will plan to follow clinical course closely. SANTOSH Morales
[2024-08-08] MEDS: AMIODARONE 150 MG/100 ML PIGGYBACK 600 MG IV (14:07)
[2024-08-08] MEDS: AMIODARONE 180 MG/100 ML PIGGYBACK 16.7 MG IV (15:05)
[2024-08-08] MEDS: DIVALPROEX 125 MG CAP 375 MG PO (20:08)
[2024-08-08] MEDS: TRAZODONE 50 MG TABLET PO (20:09)
[2024-08-08] MEDS: METOPROLOL IR 25 MG TABLET PO (20:09)
[2024-08-09] VITALS (94 sets, daily range): BP systolic 120–196; BP diastolic 64–111; PULSE 64–127; RESP 13–52; TEMP 36.9–37.3; O2SAT 89–99
[2024-08-09] MEDS: HYDROCORTISONE 100 MG/2 ML VIAL 50 MG IV ×2 (00:29→05:58)
[2024-08-09] MEDS: VANCOMYCIN 1,250 MG/250 ML PIGGYBACK 250 MG IV (02:45)
[2024-08-09 04:36] LABS: Hemoglobin 10.7 g/dL (13.5-17.5)
[2024-08-09 05:04] LABS: BUN Creatinine Ratio 17.5 (6-22); Blood Urea Nitrogen 14 mg/dL (9-20); Calcium 8.1 mg/dL (8.4-10.2); Carbon Dioxide 24 mmol/L (22-32); Chloride 100 mmol/L (98-107); Estimated Glomerular Filt Rate > 60 mL/min (>60); Glucose 114 mg/dL (80-110); HEMOLYSIS < 15 (0-50); Magnesium 2.1 mg/dL (1.6-2.3); Sodium 131 mmol/L (137-145)
[2024-08-09] MEDS: DIVALPROEX 125 MG CAP 375 MG PO ×2 (08:36→20:10)
[2024-08-09] MEDS: METOPROLOL IR 25 MG TABLET PO (08:36)
[2024-08-09] MEDS: ENOXAPARIN 100 MG/ML SYRINGE 95 MG SUBCUT ×2 (08:36→20:11)
[2024-08-09] MEDS: THIAMINE 200 MG in SODIUM CHLORIDE 0.9% 100 ML 408 MG IV (08:36)
[2024-08-09] MEDS: PANTOPRAZOLE 40 MG VIAL IV (08:36)
--- NOTE | 2024-08-09 09:32 | P.PN_ITS ---
Subjective Subjective Date Patient Seen: 08/09/24 Time Patient Seen: 09:32 Interval history: Patient was successfully weaned and extubated from the ventilator yesterday. Thus far no respiratory issues on relatively low oxygen replacement therapy Also completed an amiodarone infusion went back to sinus rhythm with heart rate in the 70s Blood pressure has been stable to a bit high Exam Vital Signs (past 8 hours): - 08/09/24 01:45 08/09/24 02:00 08/09/24 02:00 Temperature 99.0 F 99.0 F Pulse Rate 73 74 Respiratory Rate 17 16 Blood Pressure 130/73 Pulse Oximetry 93 95 Oxygen Delivery Method Oxygen Flow Rate 08/09/24 02:15 08/09/24 02:30 08/09/24 02:45 Temperature 99.0 F 99.0 F 99.0 F Pulse Rate 73 74 74 Respiratory Rate 16 16 19 Blood Pressure Pulse Oximetry 95 95 93 Oxygen Delivery Method Oxygen Flow Rate 08/09/24 03:00 08/09/24 03:00 08/09/24 03:15 Temperature 99.0 F 99.0 F Pulse Rate 72 72 Respiratory Rate 17 18 Blood Pressure Pulse Oximetry 95 96 Oxygen Delivery Method Nasal Cannula Oxygen Flow Rate 08/09/24 03:30 08/09/24 03:45 08/09/24 04:00 Temperature 99.0 F 99.0 F 99.0 F Pulse Rate 75 72 85 Respiratory Rate 19 18 Blood Pressure Pulse Oximetry 96 97 97 Oxygen Delivery Method Oxygen Flow Rate 1 08/09/24 04:15 08/09/24 04:16 08/09/24 04:17 Temperature 99.0 F 99.0 F 99.0 F Pulse Rate 84 82 80 Respiratory Rate 52 H 18 18 Blood Pressure Pulse Oximetry 98 97 97 Oxygen Delivery Method Oxygen Flow Rate 1 08/09/24 04:17 08/09/24 04:30 08/09/24 04:45 Temperature 99.0 F 99.0 F Pulse Rate 74 75 Respiratory Rate 16 16 Blood Pressure 158/91 H Pulse Oximetry 92 93 Oxygen Delivery Method Oxygen Flow Rate 1 08/09/24 05:00 08/09/24 05:00 08/09/24 05:15 Temperature 98.8 F 98.6 F Pulse Rate 75 72 Respiratory Rate 15 17 Blood Pressure 153/78 H Pulse Oximetry 94 98 Oxygen Delivery Method Oxygen Flow Rate 08/09/24 05:30 02/16/25 05:45 08/09/24 06:00 Temperature 98.6 F 98.6 F 98.6 F Pulse Rate 75 79 76 Respiratory Rate 16 18 17 Blood Pressure Pulse Oximetry 96 92 98 Oxygen Delivery Method Oxygen Flow Rate 08/09/24 06:00 08/09/24 06:15 08/09/24 06:30 Temperature 98.4 F 98.4 F Pulse Rate 75 73 Respiratory Rate 17 16 Blood Pressure 150/74 H Pulse Oximetry 98 98 Oxygen Delivery Method Oxygen Flow Rate 1 08/09/24 06:45 08/09/24 07:00 08/09/24 07:00 Temperature 98.4 F 98.4 F Pulse Rate 78 75 Respiratory Rate 16 16 Blood Pressure 151/76 H Pulse Oximetry 98 94 Oxygen Delivery Method Oxygen Flow Rate 08/09/24 07:15 08/09/24 07:30 08/09/24 07:45 Temperature 98.4 F 98.4 F 98.6 F Pulse Rate 73 75 75 Respiratory Rate 17 16 15 Blood Pressure Pulse Oximetry 97 98 97 Oxygen Delivery Method Oxygen Flow Rate 08/09/24 08:00 08/09/24 08:09 08/09/24 08:09 Temperature 98.6 F 98.6 F Pulse Rate 76 76 Respiratory Rate 13 14 Blood Pressure 173/85 H Pulse Oximetry 98 97 Oxygen Delivery Method Oxygen Flow Rate 08/09/24 08:15 08/09/24 08:30 08/09/24 08:45 Temperature 98.6 F 98.6 F 98.6 F Pulse Rate 81 75 78 Respiratory Rate 16 13 16 Blood Pressure Pulse Oximetry 97 97 97 Oxygen Delivery Method Oxygen Flow Rate 08/09/24 09:00 08/09/24 09:01 08/09/24 09:01 Temperature 98.6 F 98.6 F Pulse Rate 77 81 Respiratory Rate 14 18 Blood Pressure 172/72 H Pulse Oximetry 98 99 Oxygen Delivery Method Oxygen Flow Rate Fraction of Inspired Oxygen 85 Oxygen Delivery Method Nasal Cannula Oxygen Flow Rate 1 Objective Labs 08/09/24 04:02 08/09/24 04:02 Labs: Laboratory Results - last 24 hr 08/08/24 08/09/24 14:15 04:02 Hgb 10.7 L Hct 32.0 L Sodium 131 L Potassium 4.0 Chloride 100 Carbon Dioxide 24 BUN 14 Creatinine 0.80 Estimated GFR > 60 BUN/Creatinine Ratio 17.5 Glucose 114 H Calcium 8.1 L Magnesium 2.1 Ur Random Sodium Cancelled Ref Test (Refrig) Comment [facility] Medical History Schizophrenia in full remission with history of multiple episodes Surgical History Anesthesia Status post hernia repair (~2005) Status post appendectomy Family History Father History of heart disease Stroke Mother History of heart disease Stroke Grandfather History of heart disease Grandmother Stroke Grandfather History of heart disease Grandmother Cancer Social History household members: spouse Smoking Status: Never smoker alcohol intake: never Assessment & Plan Assessment & Plan narrative: 1. Respiratory-patient now extubated after presentation with the acute respiratory failure thought to be secondary to aspiration pneumonia. Continue with current parental antibiotics. Oxygen requirement he was actually quite low. Maybe able to switch to oral antibiotics tomorrow or the next day. 2. Cardiac-patient back in sinus rhythm after amiodarone load. Will initiate some oral amiodarone. Patient back on his oral metoprolol as well. Given his modest hypertension may also be okay to go back on his usual oral diltiazem but will hold off on that for now anyway. 3. Diabetes-fingerstick blood sugars much improved. Continue to monitor through the day as patient is now taking more orals etcetera 4. Nutrition-patient now extubated able to eat normally which he was doing 5. Hypokalemia-has been replaced and will continue to monitor. Normal this morning 6. Hyponatremia-continues to slowly improve. Plan to recheck that with the potassium in the morning Time-Based Coding :: [TOTAL MINUTES] spent with patient and on the chart (including review of chart, obtaining history, exam, reviewing outside data, placing orders, documenting exam and treatment plan, and counseling patient) on [DATE]. [employer] Document charge(s): Yes Charge Codes Subsequent inpatient/observation care: [id number]
[2024-08-09] MEDS: AMIODARONE 200 MG TABLET PO (09:59)
[2024-08-09] MEDS: allopurinoL 100 MG TABLET PO (09:59)
[2024-08-09] MEDS: CEFEPIME 2 GM in SODIUM CHLORIDE 0.9% 100 ML IV ×2 (09:59→20:47)
--- NOTE | 2024-08-09 10:57 | P.TELICUPN_ITS ---
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 care: Yes Patient Location: ICU Provider location (State): Other participants/roles: RN Interval history: Pt is doing better , off pressors, on 2 L of NC, stopping stress dose steroid IV amio was switched to PO, increasing metoprolol dose BP elevated with hyponatremia/ improving, lasix 20 mg IV x1 Resp and bl cx neg x 48 hr, stopping IV vanc No current ICU needs, may transfer to tele Acute hypoxic resp failure 2/ PNA - Cefepime, PAF / HTN - Lovenox therapeutic dosing BID - Amio and metoprolol DM - SS q 6 h goal <180 Developmental Disorder / ZEESHAN - 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 dissection Current Medications Current Medications Medications: Home Medications divalproex 125 mg tablet,delayed release (Depakote) 375 mg (3 x 125 mg) PO BID #180 tabs 06/23/22 [Rx Confirmed 08/08/24] acetaminophen 325 mg tablet 650 mg (2 x 325 mg) PO QID #240 tabs 06/27/23 [Rx Confirmed 08/08/24] allopurinol 100 mg tablet 100 mg PO DAILY #30 tabs 06/27/23 [Rx Confirmed 08/08/24] apixaban 5 mg tablet (Eliquis) See Rx Instructions .Route .COMPLEX #60 ea 06/27/23 [Rx Confirmed 08/08/24] loratadine 10 mg tablet 10 mg PO DAILY #30 tabs 06/27/23 [Rx Confirmed 08/08/24] metoprolol tartrate 25 mg tablet 25 mg PO BID #60 tabs 06/27/23 [Rx Confirmed 08/08/24] quetiapine 100 mg tablet See Rx Instructions PO .COMPLEX #120 tabs 06/27/23 [Rx Confirmed 08/08/24] tamsulosin 0.4 mg capsule (Flomax) 0.8 mg (2 x 0.4 mg) PO BEDTIME #60 caps 06/27/23 [Rx Confirmed 08/08/24] trazodone 50 mg tablet 50 mg PO BEDTIME #30 tabs 06/27/23 [Rx Confirmed 08/08/24] diltiazem HCl 30 mg tablet 30 mg PO QID #120 tabs 07/08/23 [Rx Confirmed 08/08/24] polyethylene glycol 3350 17 gram/dose oral powder 17 g PO DAILY PRN constipation #510 grams 06/25/24 [Rx Confirmed 08/08/24] Visit Medications (administered) Generic Name Dose Route Start Last Admin Trade Name Freq PRN Reason Stop Dose Admin Allopurinol 100 mg 08/09/24 09:45 08/09/24 09:59 Allopurinol 100 Mg Tablet PO 100 mg DAILY ZEESHAN Administration Amiodarone HCl 200 mg 08/09/24 09:45 08/09/24 09:59 Amiodarone 200 Mg Tablet PO 200 mg DAILY ZEESHAN Administration Divalproex Sodium 375 mg 08/08/24 21:00 08/09/24 08:36 Divalproex 125 Mg Cap PO 375 mg BID ZEESHAN Administration Enoxaparin Sodium 95 mg 08/07/24 09:00 08/09/24 08:36 Enoxaparin 100 Mg/Ml Syringe SUBCUT 95 mg BID ZEESHAN Administration Heparin Sodium (Porcine) 50 unit 08/07/24 11:25 08/08/24 20:10 Heparin Flush (Cl/Picc/Mid-Line) 50 Unit/5 Ml Syringe IV 50 unit PRN PRN Administration Flush NOREPINEPHRINE BITARTRATE/D5W 4 mg in 250 mls @ 35.55 mls/hr 08/06/24 20:15 08/08/24 11:01 Levophed IV 0 mcg/kg/min TITRATE ZEESHAN 0 mls/hr Titration Protocol 0.1 MCG/KG/MIN Propofol 1,000 mg in 100 mls @ 2.844 mls/hr 08/06/24 23:45 08/08/24 08:41 Diprivan IV 0 mcg/kg/min TITRATE ZEESHAN 0 mls/hr Titration Protocol 5 MCG/KG/MIN Cefepime HCl 2 gm/ Sodium 100 mls @ 200 mls/hr 08/07/24 09:45 08/09/24 09:59 Chloride IV 200 mls/hr Q12H ZEESHAN Administration Vancomycin HCl 1,250 mg in 250 mls @ 250 mls/hr 08/08/24 03:00 08/09/24 02:45 Vancomycin IV 250 mls/hr Q24H ZEESHAN Administration Acetaminophen 1,000 mg in 100 mls @ 400 mls/hr 08/07/24 10:17 08/07/24 19:00 Ofirmev IV Infused Q6H PRN Infusion Fever/Mild Pain (1-3) Thiamine HCl 200 mg/ Sodium 102 mls @ 408 mls/hr 08/07/24 11:30 08/09/24 08:51 Chloride IV Infused DAILY ZEESHAN Infusion Insulin Human Lispro 0 unit 08/08/24 16:45 08/09/24 08:28 Insulin Lispro 100 Unit/Ml 3ml Vial SUBCUT Not Given ACHS [facility] Protocol Pantoprazole Sodium 40 mg 08/07/24 09:00 08/09/24 08:36 Pantoprazole 40 Mg Vial IV 40 mg DAILY ZEESHAN Administration Trazodone HCl 50 mg 08/08/24 21:00 08/08/24 20:09 Trazodone 50 Mg Tablet PO 50 mg BEDTIME ZEESHAN Administration Objective Ventilator Parameters: Ventilator Settings FiO2 0.35 RT Vent Frequency 14 Ventilator Tidal Volume 480 Exhaled Vt/kg IBW 6.5 Positive End Expiratory 5 Pressure Inspiratory Phase Time 0.95 I:E Ratio 1:3.1 Patient Position HOB >= 30 degrees Labs 08/09/24 04:02 08/09/24 04:02 Labs: Laboratory Results - last 24 hr 08/08/24 08/09/24 14:15 04:02 Hgb 10.7 L Hct 32.0 L Sodium 131 L Potassium 4.0 Chloride 100 Carbon Dioxide 24 BUN 14 Creatinine 0.80 Estimated GFR > 60 BUN/Creatinine Ratio 17.5 Glucose 114 H Calcium 8.1 L Magnesium 2.1 Ur Random Sodium Cancelled Ref Test (Refrig) Comment Exam Vital Signs (past 8 hours): - 08/09/24 03:00 08/09/24 03:00 08/09/24 03:15 Temperature 99.0 F 99.0 F Pulse Rate 72 72 Respiratory Rate 17 18 Blood Pressure Pulse Oximetry 95 96 Oxygen Delivery Method Nasal Cannula Oxygen Flow Rate 08/09/24 03:30 08/09/24 03:45 08/09/24 04:00 Temperature 99.0 F 99.0 F 99.0 F Pulse Rate 75 72 85 Respiratory Rate 19 18 Blood Pressure Pulse Oximetry 96 97 97 Oxygen Delivery Method Oxygen Flow Rate 1 08/09/24 04:15 08/09/24 04:16 08/09/24 04:17 Temperature 99.0 F 99.0 F 99.0 F Pulse Rate 84 82 80 Respiratory Rate 52 H 18 18 Blood Pressure Pulse Oximetry 98 97 97 Oxygen Delivery Method Oxygen Flow Rate 1 08/09/24 04:17 08/09/24 04:30 08/09/24 04:45 Temperature 99.0 F 99.0 F Pulse Rate 74 75 Respiratory Rate 16 16 Blood Pressure 158/91 H Pulse Oximetry 92 93 Oxygen Delivery Method Oxygen Flow Rate 1 08/09/24 05:00 08/09/24 05:00 08/09/24 05:15 Temperature 98.8 F 98.6 F Pulse Rate 75 72 Respiratory Rate 15 17 Blood Pressure 153/78 H Pulse Oximetry 94 98 Oxygen Delivery Method Oxygen Flow Rate 08/09/24 05:30 08/09/24 05:45 08/09/24 06:00 Temperature 98.6 F 98.6 F 98.6 F Pulse Rate 75 79 76 Respiratory Rate 16 18 17 Blood Pressure Pulse Oximetry 96 92 98 Oxygen Delivery Method Oxygen Flow Rate 08/09/24 06:00 08/09/24 06:15 08/09/24 06:30 Temperature 98.4 F 98.4 F Pulse Rate 75 73 Respiratory Rate 17 16 Blood Pressure 150/74 H Pulse Oximetry 98 98 Oxygen Delivery Method Oxygen Flow Rate 1 08/09/24 06:45 08/09/24 07:00 08/09/24 07:00 Temperature 98.4 F 98.4 F Pulse Rate 78 75 Respiratory Rate 16 16 Blood Pressure 151/76 H Pulse Oximetry 98 94 Oxygen Delivery Method Oxygen Flow Rate 08/09/24 07:00 08/09/24 07:15 08/09/24 07:30 Temperature 98.4 F 98.4 F Pulse Rate 73 75 Respiratory Rate 17 16 Blood Pressure Pulse Oximetry 97 98 Oxygen Delivery Method Nasal Cannula Oxygen Flow Rate 08/09/24 07:45 08/09/24 08:00 08/09/24 08:09 Temperature 98.6 F 98.6 F 98.6 F Pulse Rate 75 76 76 Respiratory Rate 15 13 14 Blood Pressure Pulse Oximetry 97 98 97 Oxygen Delivery Method Oxygen Flow Rate 08/09/24 08:09 08/09/24 08:15 08/09/24 08:30 Temperature 98.6 F 98.6 F Pulse Rate 81 75 Respiratory Rate 16 13 Blood Pressure 173/85 H Pulse Oximetry 97 97 Oxygen Delivery Method Oxygen Flow Rate 08/09/24 08:45 08/09/24 09:00 08/09/24 09:01 Temperature 98.6 F 98.6 F 98.6 F Pulse Rate 78 77 81 Respiratory Rate 16 14 18 Blood Pressure Pulse Oximetry 97 98 99 Oxygen Delivery Method Oxygen Flow Rate 08/09/24 09:01 08/09/24 09:15 08/09/24 09:30 Temperature 98.6 F 98.6 F Pulse Rate 73 72 Respiratory Rate 14 14 Blood Pressure 172/72 H Pulse Oximetry 99 99 Oxygen Delivery Method Oxygen Flow Rate 08/09/24 09:45 08/09/24 10:00 08/09/24 10:00 Temperature 98.8 F 99.0 F Pulse Rate 73 64 Respiratory Rate 18 16 Blood Pressure 149/86 H Pulse Oximetry 97 98 Oxygen Delivery Method Oxygen Flow Rate Fraction of Inspired Oxygen 85 Oxygen Delivery Method Nasal Cannula Oxygen Flow Rate 1 Assessment & Plan Time-Based Coding :: [TOTAL MINUTES] spent with patient and on the chart (including review of chart, obtaining history, exam, reviewing outside data, placing orders, documenting exam and treatment plan, and counseling patient) on [DATE].
[2024-08-09] MEDS: FUROSEMIDE 20 MG/2 ML VIAL IV (11:24)
--- NOTE | 2024-08-09 17:36 | PC.NURSE ---
Pt stable throughout shift. CVC, arriaza removed per order. Remains on 1L NC, desaturation to 88% on RA. Denied pain throughout shift. Updated brother via phone call.
[2024-08-09] MEDS: METOPROLOL IR 25 MG TABLET 50 MG PO (20:09)
[2024-08-09] MEDS: TRAZODONE 50 MG TABLET PO (20:10)
[2024-08-10] VITALS (59 sets, daily range): BP systolic 122–195; BP diastolic 73–124; PULSE 74–137; RESP 16–30; TEMP 36.4–36.6; O2SAT 79–98
--- NOTE | 2024-08-10 08:06 | P.PN_ITS ---
Subjective Subjective Date Patient Seen: 08/10/24 Time Patient Seen: 08:06 Interval history: Patient with basically uneventful day yesterday. Respiratory status seems stable Continues to go in and out of atrial fibrillation. Heart rate can be into the 120s at times Blood pressure on the high side last checked 190s systolic Apparently no issues with swallowing at this time beyond his baseline Exam Vital Signs (past 8 hours): - 08/10/24 00:15 08/10/24 00:30 08/10/24 00:45 Pulse Rate 76 78 74 Respiratory Rate 18 20 18 Blood Pressure Pulse Oximetry 91 90 L 91 Oxygen Delivery Method Oxygen Flow Rate 2 08/10/24 01:00 08/10/24 01:00 08/10/24 01:15 Pulse Rate 77 79 Respiratory Rate 17 19 Blood Pressure 172/88 H Pulse Oximetry 91 91 Oxygen Delivery Method Oxygen Flow Rate 2 2 08/10/24 01:30 08/10/24 01:45 08/10/24 02:00 Pulse Rate 80 78 Respiratory Rate 24 18 Blood Pressure 180/84 H Pulse Oximetry 91 92 Oxygen Delivery Method Oxygen Flow Rate 08/10/24 02:00 08/10/24 02:15 08/10/24 02:30 Pulse Rate 79 90 82 Respiratory Rate 16 27 H 30 H Blood Pressure Pulse Oximetry 91 90 L 90 L Oxygen Delivery Method Oxygen Flow Rate 08/10/24 02:45 08/10/24 03:00 08/10/24 03:00 Pulse Rate 81 81 Respiratory Rate 25 H 22 Blood Pressure 186/96 H Pulse Oximetry 89 L 92 Oxygen Delivery Method Oxygen Flow Rate 08/10/24 03:00 08/10/24 03:04 08/10/24 03:04 Pulse Rate 80 Respiratory Rate 24 Blood Pressure 182/107 H Pulse Oximetry 91 Oxygen Delivery Method Nasal Cannula Oxygen Flow Rate 08/10/24 03:05 08/10/24 03:05 08/10/24 03:15 Pulse Rate 80 80 Respiratory Rate 23 23 Blood Pressure 174/100 H Pulse Oximetry 96 97 Oxygen Delivery Method Oxygen Flow Rate 08/10/24 03:30 08/10/24 03:45 08/10/24 04:00 Pulse Rate 79 82 84 Respiratory Rate 22 21 22 Blood Pressure Pulse Oximetry 97 92 92 Oxygen Delivery Method Oxygen Flow Rate 08/10/24 04:15 08/10/24 05:00 08/10/24 05:00 Pulse Rate 81 84 Respiratory Rate 26 H 20 Blood Pressure 182/96 H Pulse Oximetry 92 97 Oxygen Delivery Method Oxygen Flow Rate 1 1 08/10/24 05:15 08/10/24 05:30 08/10/24 05:45 Pulse Rate 80 81 83 Respiratory Rate 16 17 20 Blood Pressure Pulse Oximetry 95 98 98 Oxygen Delivery Method Oxygen Flow Rate 08/10/24 06:00 08/10/24 06:00 Pulse Rate 108 H Respiratory Rate 18 Blood Pressure 195/94 H Pulse Oximetry 97 Oxygen Delivery Method Oxygen Flow Rate 1 Fraction of Inspired Oxygen 85 Oxygen Delivery Method Nasal Cannula Oxygen Flow Rate 1 Objective Labs 08/09/24 04:02 08/09/24 04:02 [facility] Medical History Schizophrenia in full remission with history of multiple episodes Surgical History Anesthesia Status post hernia repair (~2005) Status post appendectomy Family History Father History of heart disease Stroke Mother History of heart disease Stroke Grandfather History of heart disease Grandmother Stroke Grandfather History of heart disease Grandmother Cancer Social History household members: spouse Smoking Status: Never smoker alcohol intake: never Assessment & Plan Assessment & Plan narrative: 1. Respiratory-patient now extubated after presentation with the acute respiratory failure thought to be secondary to aspiration pneumonia. Continue with current parental antibiotics. Oxygen requirement he was actually quite low. Maybe able to switch to oral antibiotics tomorrow. IV vanco has been discontinued by tele court usher 2. Cardiac-patient continues to go in and out of atrial fibrillation. Continue with oral amiodarone. Patient normally on metoprolol plus short-acting diltiazem I will restart the diltiazem and increase his metoprolol dose slightly to hopefully better rate control 3. Diabetes-fingerstick blood sugars much improved. Continue to monitor. 4. Nutrition-patient now extubated able to eat normally which he was doing. I think it would be helpful to have speech therapy see him today. 5. Hypokalemia-plan to rechecked tomorrow. 6. Hyponatremia-better when last checked. Plan to rechecked tomorrow Overall patient is improved. I think he can probably be switched to non ICU care but does need to continue on telemetry. I will place orders. Time-Based Coding :: [TOTAL MINUTES] spent with patient and on the chart (including review of chart, obtaining history, exam, reviewing outside data, placing orders, documenting exam and treatment plan, and counseling patient) on [DATE]. PROFEE Natural Sciences Professor Document charge(s): Yes Charge Codes Subsequent inpatient/observation care: [id number]
[2024-08-10] MEDS: THIAMINE 200 MG in SODIUM CHLORIDE 0.9% 100 ML 408 MG IV (09:12)
[2024-08-10] MEDS: DIVALPROEX 125 MG CAP 375 MG PO ×2 (09:14→20:34)
[2024-08-10] MEDS: allopurinoL 100 MG TABLET PO (09:14)
[2024-08-10] MEDS: ENOXAPARIN 100 MG/ML SYRINGE 95 MG SUBCUT (09:15)
[2024-08-10] MEDS: METOPROLOL IR 25 MG TABLET 50 MG PO ×3 (09:15→20:34)
[2024-08-10] MEDS: AMIODARONE 200 MG TABLET PO (09:15)
[2024-08-10] MEDS: CEFEPIME 2 GM in SODIUM CHLORIDE 0.9% 100 ML IV ×2 (09:25→20:48)
--- NOTE | 2024-08-10 11:01 | DIET.PN1 ---
Dietary Progress Note Assessment: RD f/u Pt extubated over weekend. Per team rounds this morning, pt to get ST eval. Will continue to monitor PO intakes based on ST eval/reccs. Current avg. recorded POs 75%. Ht: 170 cm Wt: 90.5 kg BMI: 32.8 UBW: Weight updated since last consult note, now -8.5% weight loss within 9 months, non-severe Last BM: 08/09/24 (08/09/24 18:48) MNA: 11 Gerardo Score: 12 Diet: 08/08/24 Dinner Dysphagia Diet Diet Modifications: Carb consistent Medium carb May Advance Diet as Tolerated: No Safety Tray needed?: No Food Texture: Level 7 - Regular Liquid Consistency: Level 0 - Thin Nutrition Percent Meal Consumed 100% 08/09/24 18:48 Percent Meal Consumed 25% 08/09/24 18:00 Percent Meal Consumed 75% 08/09/24 12:00 Percent Meal Consumed 50% 08/08/24 18:00 Labs: RBC 3.57 X10^6/uL (4.5-5.9) L 08/08/24 04:35 Hgb 10.7 g/dL (13.5-17.5) L 08/09/24 04:02 Hct 32.0 % (41-53) L 08/09/24 04:02 Creatinine 0.80 mg/dL (0.66-1.25) 08/09/24 04:02 Lactate 2.3 mmol/L (0.7-2.1) H 08/07/24 22:17 Electronically Signed by: Susan Wellington 08/10/24 11:01 Clinical Dietitian [address] [address]
--- NOTE | 2024-08-10 12:27 | ST.IPCSEOM ---
Visit Care Team Role Provider Type Fadi Sahni MD Emergency Provider Physician Referring Provider Specialty: Emergency Medicine Address: [address] [place], [address] Fax: Email: [email or web address] Urban [email or web address] Admit Provider Physician Attending Provider Primary Care Provider Specialty: Family Practice Obstetrics Address: [address] [place], [address] Email: [email or web address] Current Diagnoses Sepsis, unspecified organism (08/07/24) Type 2 diabetes mellitus without complications (08/07/24) Developmental disorder of scholastic skills, unspecified (08/07/24) Essential (primary) hypertension (08/07/24) Paroxysmal atrial fibrillation (08/07/24) Pneumonia, unspecified organism (08/07/24) Altered mental status, unspecified (08/07/24) Severe sepsis with septic shock (08/07/24) Past Medical History (Last Reviewed 08/10/24 @ 08:07 by Rg Jordan MD) Schizophrenia in full remission with history of multiple episodes (Medical) 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 Rg Jordan Reason for Referral Acute respiratory failure Setting Assessment Location Acute Care Visit Type Note Type Initial evaluation Next Note Type Next Note Type Treatment Note Patient Information Identification Type Name,Wristband History Per H&P: 78 y/o resident of [facility], with PMH of PAF, HTN, developmental delay, DM, found poorly responsive, hypotensive, hypoxemic. EMS started IO epinephrine. On arrival to ED in septic shock, he was intubated and had a central line placed, added Levophed and 3 different antibiotics for presumed aspiration pneumonia. Had a dose of hydrocortisone and taken of epinephrine. Repeated LA after ~ 1-2 L of fluids still high, > 6. Receiving another 1 L of NS bolus at the time of admission while on Levophed, Propofol. PMHx: Schizophrenia. Pt referred for ST evaluation d/t possible aspiration PNA and to assess swallow after extubation. Pt had a chest x-ray completed on 08/08/24 with the following results: IMPRESSION: 1. Tubes project in the expected location. Enteric tube coursing into the stomach , new. 2. Left basilar opacity, similar. Subjective Observations Pt sitting upright in bed, awake, alert. Pt oriented to self, reports year as 2014, knows he is in a hospital, however states he is in [place] and thinks he lives at the hospital. Nursing reports Pt had no observed difficulties drinking walking, however held pills crushed in puree in mouth. Pt reports his baseline diet is puree and thin liquids and he would not like this changed. Reported by Patient/Caregiver Pain/Discomfort No Current Diet Pureed (IDDSI 4) Baseline Feeding Method Needs some assistance The IDDSI Framework Protocol: IDDSI.1 Objective Assessment Mental Status Alert,Responsive,Cooperative, Confused Comment Oral motor exam revealed Pt with several missing teeth and states he does not wear dentures. Fair-poor condition. Pt with reduced lingual strength. Labial strength and ROM appeared WFL. Food and Liquid Trials Position During Assessment Upright (90 degrees) Liquids Trialed Thin (IDDSI 0) Solid Trials Purred (IDDSI 4) Administration Type Cup single sip,Cup consecutive sips,Straw,Self-feeding,Needs some assistance Oral Impairment Mildly impaired Oral Phase Comments Pt required mild set up assistance. Pt consumed about 8 oz of thin water via straw and cup and 4 oz of pudding. For pudding, Pt exhibited slightly large bites, good oral acceptance and containment, prolonged bolus manipulation, extended ap transport. For thin water via straw/cup, Pt exhibited impulsivity with large consecutive sips, good oral acceptance and containment. Pharyngeal Impairment Moderately impaired Pharyngeal Phase Comments For pureed solids, Pt exhibited no overt s/s of aspiration such as coughing or choking. For consecutive sips of thin water via straw Pt exhibited immediate coughing reflex with wet cough. Pt thin water via cup with consecutive sips Pt also exhibited 1x cough, however was able to follow cue to take one sip at a time and provided education on importance of taking one sip at a time. Pt with double swallow reflex with thin water via cup with controlled sips, however no overt s/s of aspiration. Fatigue/Endurance Endurance WNL The IDDSI Framework Protocol: IDDSI.1 Findings Swallowing Function Oropharyngeal phase dysphagia Severity of Swallow Impairment Mildly-moderately impaired Prognosis Fair Based on Cognitive status Impact on Safety and Functioning Risk for aspiration Recommendations Instrumental Assessment No Swallowing Treatment Yes Frequency Daily while inpatient Recommended Solids Pureed (IDDSI 4) Recommended Liquids Thin (IDDSI 0) Other Recommendations ST recommends IDDSI 4(pureed solids) and thin liquids via cup- NO STRAWS. ST recommends staff remind Pt to take small, single sips at a time. ST recommends Pt stay with head raised at least 30 degrees at all times and the below mentioned safe swallowing strategies in place. ST to f/u with Pt tomorrow to assess swallow and determine if a MBS may/may not be appropriate. Safety Precautions/Swallowing 1 to 1 distant supervision, Recommendations Remain upright (90 degrees) during all oral intake,Upright position at least 30 minutes after meals,Small bites and sips when eating,Slow rate; swallow between bites,No straw ,Alternate liquids and solids, Set-up assistance,Strict oral care after intake Medication Recommendations As Tolerated Discharge Recommendations group home facility Education Patient/Caregiver Education Described results of evaluation,Patient expressed understanding of evaluation, Patient requires further education/training,Family/ caregivers require further education/training Goals Short-term Goals STG 1: Pt will tolerate prescribed diet with <5% overt s/s of aspiration/dysphagia with use of compensatory swallowing strategies and minimal cues. Long-term Goals LTG 1: Patient will consume safest and most efficient least restrictive diet with no clinical s/s of aspiration or dysphagia 100% of the time in order to meet primary nutrition/hydration needs.
[2024-08-10] MEDS: dilTIAZem 30 MG TABLET PO ×3 (12:46→23:04)
--- NOTE | 2024-08-10 14:26 | CM.DPNOTE ---
DCP note HAIR DESIGNER reviewed EMR. Per speech eval, rec LTC vs SNF. rec puree/thin. Per RN report, afib remains not very controlled today. floor care. Per chart review, no PT/OT orders at the moment. per provider note, GILBERTO unclear at this time. switching to PO meds today/tomorrow. HAIR DESIGNER entered room and introduced self and role. pt sitting up in bed. communicated primarily with nods yes or no with this HAIR DESIGNER. nodded yes to preferring to dc back to . nodded no to having this HAIR DESIGNER call and update his brother, Hector, on the DCP. nodded no to other questions or concerns with his DCP at this time. HAIR DESIGNER spoke with Shai from . Pt does not necessarily need new PT/OT evals to accept pt back but it wouldn't hurt if provider wanted him to work with therapies prior to dc. Per Shai, in order for [facility] to accept, pt resp failure needs to be improving and not resolved. tentatively arranged for transport to between [id number] Tues in case he is medically cleared for dc tomorrow. can be changed. no new PASRR needed unless meds change. P: dc to [facility] when medically stable, tentatively arranged for Tues between [id number]. vs return to [facility]. Coordinate with facilities/brother Hetcor as needed. SANTOSH Morales
[2024-08-10 16:24] LABS: Allen Test for ABG Passed? Yes, Passed
[2024-08-10] MEDS: ACETAMINOPHEN 325 MG TABLET 650 MG PO (17:31)
[2024-08-10] MEDS: APIXABAN 5 MG TABLET PO (20:34)
[2024-08-10] MEDS: TRAZODONE 50 MG TABLET PO (20:34)
[2024-08-10] MEDS: TAMSULOSIN 0.4 MG CAPSULE 0.8 MG PO (20:34)
[2024-08-11] VITALS (7 sets, daily range): BP systolic 152–166; BP diastolic 74–95; PULSE 60–81; RESP 13–16; TEMP 35.8–36.7; O2SAT 97–100
[2024-08-11 05:36] LABS: Add Manual Diff / Slide Review NO; Basophils Absolute Auto 0 /uL (0-100); Basophils Percent Auto 0.3 % (0-2); Eosinophils Absolute Auto 0 /uL (0-450); Eosinophils Percent Auto 0.3 % (2-4); Lymphocytes Absolute Auto 2500 /uL (1100-4500); Lymphocytes Percent Auto 28.3 % (25-40); Mean Corpuscular HGB Conc 33.4 % (30-36); Mean Corpuscular Hemoglobin 29.3 PG (26-34); Mean Corpuscular Volume 87.8 fL (80-100); Monocytes Absolute Auto 900 /uL (0-900); Monocytes Percent Auto 9.8 % (3-14); Neutrophils Absolute Auto 5500 /uL (1500-7000); Neutrophils Percent Auto 61.3 % (50-75); Platelet Count 163 X10^3/uL (150-400); Red Cell Distribution Width 15.2 % (11.6-14.8)
[2024-08-11 05:43] LABS: Potassium 3.3 mmol/L (3.4-5.1)
[2024-08-11 05:45] LABS: BUN Creatinine Ratio 22.4 (6-22); Blood Urea Nitrogen 17 mg/dL (9-20); Calcium 8.2 mg/dL (8.4-10.2); Carbon Dioxide 33 mmol/L (22-32); Chloride 91 mmol/L (98-107); Estimated Glomerular Filt Rate > 60 mL/min (>60); Glucose 86 mg/dL (80-110); HEMOLYSIS 15 (0-50); Magnesium 1.8 mg/dL (1.6-2.3); Sodium 131 mmol/L (137-145)
[2024-08-11] MEDS: dilTIAZem 30 MG TABLET PO ×2 (06:03→13:31)
--- NOTE | 2024-08-11 08:07 | P.PN_ITS ---
Exam Vital Signs (past 8 hours): - 08/11/24 04:00 08/11/24 06:03 08/11/24 07:42 Temperature 96.5 F L Pulse Rate 68 81 Respiratory Rate 16 Blood Pressure 166/77 H Pulse Oximetry 100 97 Oxygen Delivery Method Nasal Cannula Oxygen Flow Rate 2 2 Fraction of Inspired Oxygen 85 Oxygen Delivery Method Nasal Cannula Oxygen Flow Rate 2 Objective Labs 08/11/24 04:20 08/11/24 04:20 Labs: Laboratory Results - last 24 hr 08/07/24 08/11/24 17:14 04:20 WBC 9.0 RBC 4.10 L Hgb 12.0 L Hct 36.0 L MCV 87.8 MCH 29.3 MCHC 33.4 RDW 15.2 H Plt Count 163 Neut % (Auto) 61.3 Lymph % (Auto) 28.3 [place] % (Auto) 9.8 Eos % (Auto) 0.3 L Baso % (Auto) 0.3 Neut # (Auto) 5500 Lymph # (Auto) 2500 [place] # (Auto) 900 Eos # (Auto) 0 Baso # (Auto) 0 ABG Sample Site Not Reportable Leonel Test Yes, passed Sodium 131 L Potassium 3.3 L Chloride 91 L Carbon Dioxide 33 H BUN 17 Creatinine 0.76 Estimated GFR > 60 BUN/Creatinine Ratio 22.4 H Glucose 86 Calcium 8.2 L Magnesium 1.8 PFSH Medical History Schizophrenia in full remission with history of multiple episodes Surgical History Anesthesia Status post hernia repair (~2005) Status post appendectomy Family History Father History of heart disease Stroke Mother History of heart disease Stroke Grandfather History of heart disease Grandmother Stroke Grandfather History of heart disease Grandmother Cancer Social History household members: spouse Smoking Status: Never smoker alcohol intake: never Assessment & Plan Assessment and plan (1) Paroxysmal atrial fibrillation with rapid ventricular response: Status: Acute (2) Pneumonia: Qualifiers: Laterality: unspecified laterality Lung location: unspecified part of lung Pneumonia type: due to unspecified organism Qualified Code(s): J18.9 - Pneumonia, unspecified organism Status: Acute Time-Based Coding :: [TOTAL MINUTES] spent with patient and on the chart (including review of chart, obtaining history, exam, reviewing outside data, placing orders, documenting exam and treatment plan, and counseling patient) on [DATE].
[2024-08-11] MEDS: METOPROLOL IR 25 MG TABLET 50 MG PO (09:45)
[2024-08-11] MEDS: allopurinoL 100 MG TABLET PO (09:45)
[2024-08-11] MEDS: AMIODARONE 200 MG TABLET PO (09:45)
[2024-08-11] MEDS: APIXABAN 5 MG TABLET PO (09:45)
[2024-08-11] MEDS: DIVALPROEX 125 MG CAP 375 MG PO (09:45)
[2024-08-11] MEDS: POTASSIUM CHLORIDE 20 MEQ TAB 40 MEQ PO (09:46)
[2024-08-11] MEDS: THIAMINE 200 MG in SODIUM CHLORIDE 0.9% 100 ML 102 MG IV (10:36)
[2024-08-11] MEDS: CEFEPIME 2 GM in SODIUM CHLORIDE 0.9% 100 ML IV (10:37)
--- NOTE | 2024-08-11 12:23 | CM.DPC ---
DCP Cont. Reviewed EMR and team rounds for status updates. Pt has been medically [facility] They will transport him at 3:00pm. Will fax d/c clinicals and scripts prior to d/c.
--- NOTE | 2024-08-11 14:08 | PM.DS.IH.1 ---
History of Present Illness History of Present Illness Date Patient Seen: 08/11/24 Time Patient Seen: 07:55 Chief complaint: Unresponsive Narrative: 78 y/o resident of [facility], with PMH of PAF, HTN, developmental delay, DM, found poorly responsive, hypotensive, hypoxemic. EMS started IO epinephrine. On arrival to ED in septic shock, he was intubated and had a central line placed, added Levophed and IV ceftriaxone, doxycyline, then clindamycin for coverage of presumed aspiration pneumonia. Had a dose of hydrocortisone and taken off epinephrine. Repeated LA after ~ 1-2 L of fluids still high, > 6. Received another 1 L of NS bolus at the time of admission while on Levophed, Propofol. CT brain noncontrast: No acute changes. CT cervical spine noncontrast: No acute changes, moderate to severe spondylosis noted. CT angiogram chest abdomen and pelvis: Impressions: ?No central pulmonary embolism. No intramural hematoma or aortic dissection. Bibasilar consolidations likely pneumonia. Debris is seen in the airways. Aspiration is also possible. Borderline enlarged mediastinal lymph nodes. Consider future imaging surveillance to assess for resolution. ET tube terminates in the mid trachea. Enteric tube terminates in the distal esophagus. Moderately distended stomach. Nonspecific small amount of pelvic free fluid. Renal pelvic in ureteral ectasia with mild edematous surrounding fat stranding. Bladder wall thickening with Smith in place. Correlate urinalysis for infection. There is no obstructing calcified stone identified. Hyperenhancing adrenals, correlate with any recent hypotensive in episodes. Incidentally noted focal irregular in the left subclavian artery, which may represent irregular plaque versus a small dissection.? Labs notable for WBC 16.9 w/left shift, hgb 11.7, ABG 7.21/41.5/95/17, lactate 6.3 > 5.6 > 2.3, troponin 0.066 > 0.143 > 0.084, procalcitonin 11.6. Discharge Providers Provider Date of admission: 08/07/24 00:52 Discharge Date: 08/11/24 Primary care physician: Koko Urban MD Consults: 08/08/24 12:41 Consult to Speech Therapy Evaluate & Treat Comment: h/o swallow issues, on puree diet at [facility] Physician Instructions: Evaluate and treat Discharge provider: Koko Urban MD Summary Hospital Course Discharge Diagnosis: #Aspiration PNA #Sepsis #AMS #PAF w/RVR #HTN #T2DM #Developmental delay Hospital Course: Admitted to ICU where he was managed by tele-trial manager. Successfully extubated on hospital day 2 and remained on room air w/o respiratory support except for low flow NC for desaturations while asleep, likely due to sleep apnea. Started amiodarone infusion for pharmacologic cardioconversion, transitioned to oral thereafter. IV abx switched to cefepime on day 2, leukocytosis downtrending/normalized and remained afebrile. Converted to p.o. Augmentin on day of discharge for addtional 3 days to ensure adequate treatment of severe pneumonia. Status at Discharge Cognitive/behavioral status at discharge: calm Functional status at discharge: bed bound Overall status at discharge: patient is progressing back to baseline Time Spent with Patient Time spent: Greater than 30 minutes Exam Vital Signs (past 8 hours): - 08/11/24 07:42 08/11/24 08:00 08/11/24 12:00 Temperature 98.1 F Pulse Rate 69 Respiratory Rate 13 Blood Pressure 163/95 H Pulse Oximetry 97 98 Oxygen Delivery Method Nasal Cannula Oxygen Flow Rate 2 0 08/11/24 13:31 Temperature Pulse Rate 68 Respiratory Rate Blood Pressure 152/74 H Pulse Oximetry Oxygen Delivery Method Oxygen Flow Rate Fraction of Inspired Oxygen 85 Oxygen Delivery Method Nasal Cannula Oxygen Flow Rate 0 Narrative Exam Narrative: General: Pleasant, NAD HEENT: NC/AT, EOMI, moist membranes CV: Regular rate, irregularly irregular rhythm, normal S1-S2, no m/g/r Resp: CTAB, comfortable WOB Abd: Soft, NTND, +BS Ext: No edema Skin: No rash or lesions noted Neuro: Moves all extremities, no focal deficits Objective Labs 08/11/24 04:20 08/11/24 04:20 Labs: Laboratory Results - last 24 hr 08/07/24 08/11/24 17:14 04:20 WBC 9.0 RBC 4.10 L Hgb 12.0 L Hct 36.0 L MCV 87.8 MCH 29.3 MCHC 33.4 RDW 15.2 H Plt Count 163 Neut % (Auto) 61.3 Lymph % (Auto) 28.3 [place] % (Auto) 9.8 Eos % (Auto) 0.3 L Baso % (Auto) 0.3 Neut # (Auto) 5500 Lymph # (Auto) 2500 [place] # (Auto) 900 Eos # (Auto) 0 Baso # (Auto) 0 ABG Sample Site Not Reportable Leonel Test Yes, passed Sodium 131 L Potassium 3.3 L Chloride 91 L Carbon Dioxide 33 H BUN 17 Creatinine 0.76 Estimated GFR > 60 BUN/Creatinine Ratio 22.4 H Glucose 86 Calcium 8.2 L Magnesium 1.8 PFSH Medical History Schizophrenia in full remission with history of multiple episodes Surgical History Anesthesia Status post hernia repair (~2005) Status post appendectomy Family History Father History of heart disease Stroke Mother History of heart disease Stroke Grandfather History of heart disease Grandmother Stroke Grandfather History of heart disease Grandmother Cancer Social History household members: spouse Smoking Status: Never smoker alcohol intake: never Discharge Assessment & Plan Assessment and Plan Plan of Treatment: Acute hypoxic resp failure 07/26 PNA - Ceftriaxone/Doxycycline/Clindamycin (08/06) - Cefepime (08/07-) - Augmentin 875/125 BID (08/11-) PAF / HTN - Eliquis b.i.d. - Continoue amiodarone 200mg daily - Home metoprolol, diltiazem - Follow-up with foley artist outpatient for further management DM - Diet controlled Developmental Disorder - Home Depakote, Seroquel, Trazodone Discharge Plan Discharge Plan Patient Disposition: SNF Transfer to: [facility] Discharge orders & Medications Prescriptions: New amiodarone 200 mg tablet 200 mg PO DAILY Qty: 30 0RF amoxicillin-pot clavulanate 875-125 mg tablet 1 tab PO BID Qty: 7 0RF Continued divalproex [Depakote] 125 mg tablet,delayed release (DR/EC) 375 mg PO BID Qty: 180 11RF allopurinol 100 mg tablet 100 mg PO DAILY Qty: 30 11RF Eliquis 5 mg tablet See Rx Instructions .ROUTE .COMPLEX Qty: 60 11RF Dose Instruction: TAKE 1 TABLET BY MOUTH TWICE DAILY Rx Instructions: TAKE 1 TABLET BY MOUTH TWICE DAILY metoprolol tartrate 25 mg tablet 25 mg PO BID Qty: 60 11RF acetaminophen 325 mg tablet 650 mg PO QID Qty: 240 11RF quetiapine 100 mg tablet See Rx Instructions PO .COMPLEX Qty: 120 11RF Rx Instructions: 150mg in morning and evening. 100mg at noon. tamsulosin [Flomax] 0.4 mg capsule 0.8 mg PO BEDTIME Qty: 60 11RF trazodone 50 mg tablet 50 mg PO BEDTIME Qty: 30 11RF loratadine 10 mg tablet 10 mg PO DAILY Qty: 30 11RF diltiazem HCl 30 mg tablet 30 mg PO QID Qty: 120 0RF polyethylene glycol 3350 17 gram/dose powder 17 g PO DAILY PRN (Reason: constipation) Qty: 510 3RF Follow up/Referrals: Koko Urban MD [Primary Care Provider] - Visit Report/Discharge Packet Instructions: Naloxone for Opiate Overdose - [facility] Stand Alone Forms: Patient Portal/API, Naloxone Standing Order [facility] Discharge Data Primary Care Provider: Koko Urban Discharges patient from system. Discharge Date/Time: 08/11/24 15:35 PROFEE Charge Codes Discharge inpatient/observation: [id number]
--- NOTE | 2024-08-11 15:56 | PC.NURSE ---
Patient received this a.m. sleeping. Initially SBP elevated. He is placed on 2 LNC while sleeping due to 02 dropping to 80's when sleeping. Other VS, stable. He is awakened and fed by SLAGGER, and then falling asleep with breakfast plate. He is A&OX3, forgetful.He is able to awaken with stimulation and given morning medications crushed in pudding. He is able to help turn minimally in bed, and cleaned of incontinent urine and stool. He is cleared by MD at bedside this a.m. to [facility], this afternoon. Patient is agreeable and cooperative. Transporter arrived at 1500 and patient is cleaned up and assisted to w/ch. He is escorted via w/ch by designee at approximately 1530 this afternoon.
== END 2024-08-11 15:35 | DRG 871 ==
LOC: ED 08-07 00:50 → AC 08-07 00:52 → ICU 08-07 01:17
PROVIDERS: Anesthesiology Critical Care Medicine; Emergency Medicine; Internal Medicine; Pharmacist Pharmacist Clinician (PhC)/ Clinical Pharmacy Specialist; Admitting Provider Family Medicine; Emergency Provider Emergency Medicine; PCP Family Medicine; Referring Provider Emergency Medicine; Visit Provider Family Medicine
DX: A41.9 Sepsis, unspecified organism (principal); J18.9 Pneumonia, unspecified organism; J69.0 Pneumonitis due to inhalation of food and vomit; R65.21 Severe sepsis with septic shock; J96.01 Acute respiratory failure with hypoxia; E87.1 Hypo-osmolality and hyponatremia; I48.0 Paroxysmal atrial fibrillation; I10 Essential (primary) hypertension; E11.9 Type 2 diabetes mellitus without complications; F81.9 Developmental disorder of scholastic skills, unspecified; E87.6 Hypokalemia; R41.82 Altered mental status, unspecified; G47.30 Sleep apnea, unspecified; F20.9 Schizophrenia, unspecified; Z79.01 Long term (current) use of anticoagulants
CPT/HCPCS: 36415; 36556; 36600; 70450; 71045; 71275; 72125; 74174; 80048; 80053; 80305; 81001; 82550; 82805; 82962; 83605; 83690; 83735; 84145; 84295; 84484; 85007; 85014; 85018; 85025; 87040; 87070; 87077; 87205; 87635; 87797; 92610; 93005; 93010; 94002; 94003; 94762; 94799; 96361; 96365; 96366; 96367; 96368; 99233; 99239; 99285; 99291; 99292; C8929; J0131; J0282; J0692; J0696; J1642; J1650; J1720; J1815; J1940; J2470; J2704; J3475; P9041; Q9957; Q9967

== ENCOUNTER → 2024-12-10 10:46 | Outpatient (CLI) | payer MEDICARE, MEDICAID, SELFPAY ==
[2024-08-07 02:00] VITALS: BMI 32.8
[2024-08-08 09:10] VITALS: PULSE 112; RESP 14; O2SAT 97
--- NOTE | 2024-12-10 10:48 | DI.US.S_ITS ---
PROCEDURE: US ARTERIAL DUPLEX LE BI INDICATIONS: Bilateral LE pain, color change TECHNIQUE: Color and pulse Doppler interrogation was performed of both lower extremity arterial systems, with image documentation. COMPARISON: None. FINDINGS: Right lower extremity: Common femoral artery: 55 cm/sec, with biphasic flow. Deep femoral artery: 60 cm/sec, with triphasic flow. Proximal superficial femoral artery: 42 cm/sec, with triphasic flow. Mid superficial femoral artery: 47 cm/sec, with triphasic flow. Distal superficial femoral artery: 42 cm/sec, with biphasic flow. Popliteal artery: 55 cm/sec, with triphasic flow. Posterior tibial artery: 81 cm/sec, with triphasic flow. Anterior tibial artery/dorsalis pedis: Not visualized Trent-scale imaging description: Mild atheromatous plaque throughout. Left lower extremity: Common femoral artery: 50 cm/sec, with triphasic flow. Deep femoral artery: 46 cm/sec, with triphasic flow. Proximal superficial femoral artery: 52 cm/sec, with triphasic flow. Mid superficial femoral artery: 52 cm/sec, with biphasic flow. Distal superficial femoral artery: 55 cm/sec, with biphasic flow. Popliteal artery: 53 cm/sec, with biphasic flow. Posterior tibial artery: 93 cm/sec, with biphasic flow. Anterior tibial artery/dorsalis pedis: 25 cm/sec, with triphasic flow. Trent-scale imaging description: Mild atheromatous plaque throughout IMPRESSION: 1. Mild atheromatous plaque is scattered throughout the bilateral lower extremity arteries. There are biphasic and triphasic waveforms throughout. No hemodynamically significant stenosis. Dictated by: Zoë Dunne M.D. on 12/11/2024 at 8:18 Approved by: Zoë Dunne M.D. on 12/11/2024 at 8:27
== END ==
LOC: US 10:47
PROVIDERS: PCP Family Medicine; Referring Provider Family Medicine; Visit Provider Family Medicine
DX: I87.2 Venous insufficiency (chronic) (peripheral) (principal); R60.0 Localized edema; R20.9 Unspecified disturbances of skin sensation
CPT/HCPCS: 93925

== ENCOUNTER 2025-05-14 12:24 | Inpatient (IN) | payer MEDICARE, MEDICAID, SELFPAY ==
[2024-08-07 02:00] VITALS: BMI 32.8
[2024-08-08 09:10] VITALS: PULSE 112; RESP 14; O2SAT 97
[2025-05-14] VITALS (19 sets, daily range): BP systolic 98–152; BP diastolic 43–116; PULSE 85–98; RESP 16–22; TEMP 36.3–37.1; O2SAT 94–100; BMI 24.8
--- NOTE | 2025-05-14 12:38 | DI.RAD.S_ITS ---
PROCEDURE: XR CHEST 1V INDICATIONS: Shortness of breath TECHNIQUE: One view of the chest was acquired. COMPARISON: [facility], CR, XR CHEST 1V, 08/08/2024, 5:49. [facility], CR, XR CHEST 1V, 08/06/2024, 21:52. FINDINGS: Surgical changes and devices: None. Lungs and pleura: Lungs are abnormal with moderate right midlung and left lower lobe alveolar opacification consistent with pneumonia or aspiration.. No pleural effusions or pneumothorax. Mediastinum: Mediastinal contours appear normal. Heart size is normal. Bones and chest wall: No suspicious bony lesions. Overlying soft tissues appear unremarkable. IMPRESSION: Alveolar infiltration as discussed above could represent either bilateral pneumonia or aspiration. Dictated by: Jarrell Gray M.D. on 05/14/2025 at 13:11 Approved by: Jarrell Gray M.D. on 05/14/2025 at 13:12
[2025-05-14 12:54] LABS: Add Manual Diff / Slide Review NO; Hematocrit 23.8 % (41-53); Hemoglobin 7.9 g/dL (13.5-17.5); Lymphocytes Absolute Auto 2300 /uL (1100-4500); Mean Corpuscular HGB Conc 33.1 % (30-36); Mean Corpuscular Hemoglobin 27.7 PG (26-34); Mean Corpuscular Volume 83.9 fL (80-100); Platelet Count 160 X10^3/uL (150-400)
[2025-05-14 13:06] LABS: Lactate (Lactic Acid) 2.1 mmol/L (0.7-2.1)
[2025-05-14 13:07] LABS: Alanine Aminotransferase 13 IU/L (<50); Albumin 3.7 g/dL (3.5-5.0); Albumin Globulin Ratio 0.9 (1.0-2.8); Alkaline Phosphatase 57 U/L (38-126); Blood Urea Nitrogen 27 mg/dL (9-20); Calcium 8.9 mg/dL (8.4-10.2); Carbon Dioxide 30 mmol/L (22-32); Chloride 85 mmol/L (98-107); Estimated Glomerular Filt Rate 44 mL/min (>60); Globulin 4.3 g/dL (1.7-4.1); Glucose 121 mg/dL (70-99); HEMOLYSIS < 15 (0-50); Potassium 4.1 mmol/L (3.4-5.1); Sodium 125 mmol/L (137-145); Total Protein 8.0 g/dL (6.3-8.2)
--- NOTE | 2025-05-14 13:43 | ED_ITS ---
HPI - General Adult General Chief complaint: Upper Respiratory Symptoms Stated complaint: possible aspiration/Cough Time Seen by Provider: 05/14/25 12:24 Source: EMS Mode of arrival: EMS History of Present Illness HPI narrative: 79 years old male with history of atrial fibrillation on Eliquis, hypertension, BPH, diabetes , developmental delay brought in by an ambulance for coughing fits during dinner last night. he normally only gives yes no answer at the nursing homeHe could not give us information. He has had generalized weakness as well. He only answer no to my questions including chest pain, vomiting, abdominal pain, headache, fever, difficulty breathing. Related Data Previous Rx's ?Medication ?Instructions ?Recorded divalproex 125 mg tablet,delayed 375 mg (3 x 125 mg) P O BID #180 06/23/22 release (Depakote) tabs acetaminophen 325 mg tablet 650 mg (2 x 325 mg) PO QID #240 06/27/23 tabs allopurinol 100 mg tablet 100 mg PO DAILY #30 tabs 10/15 apixaban 5 mg tablet (Eliquis) See Rx Instructions .Ro roya 06/27/23 .COMPLEX #60 ea loratadine 10 mg tablet 10 mg PO DAILY #30 tabs 01/0 10/15 metoprolol tartrate 25 mg tablet 25 mg PO BID #60 tabs 06/27/23 quetiapine 100 mg tablet See Rx Instructions PO .COMP THOMAS 06/27/23 #120 tabs tamsulosin 0.4 mg capsule (Flomax) 0.8 mg (2 x 0.4 mg) PO BEDTIME #60 06/27/23 caps trazodone 50 mg tablet 50 mg PO BEDTIME #30 tabs diltiazem HCl 30 mg tablet 30 mg PO QID #120 tabs 06/24 11/14 polyethylene glycol 3350 17 17 g PO DAILY PRN constipa tion 06/25/24 gram/dose oral powder #510 grams Allergies Allergy/AdvReac Type Severity Reaction Status Date / Time No Known Drug Allergies Allergy Verified 05/14/25 12:30 Review of Systems Review of Systems Narrative: Poor historian. Coughing fits during dinner last night. Patient History Medical History (Updated 05/14/25 @ 20:11 by Koko Urban MD) Paroxysmal atrial fibrillation with rapid ventricular response Schizophrenia in full remission with history of multiple episodes Surgical History Anesthesia Status post hernia repair (~2005) Status post appendectomy Family History Father History of heart disease Stroke Mother History of heart disease Stroke Grandfather History of heart disease Grandmother Stroke Grandfather History of heart disease Grandmother Cancer Social History household members: spouse Smoking Status: Smoker, status unknown alcohol intake: never Smoking Status: Smoker, status unknown Exam Narrative Exam Narrative: GENERAL: appear weak. Drowsy. HEAD: Atraumatic. Normocephalic. NECK: Trachea midline. Non tender CARDIOVASCULAR: Regular rate and rhythm without murmurs, gallops, or rubs. RESPIRATORY: Decreased lung sounds both lungs. No wheezing. GASTROINTESTINAL: Abdomen soft, non-tender, nondistended. EXTREMITIES: No edema or joint tenderness. BACK: Nontender without deformity or crepitance. No flank tenderness. NEURO: Drowsiness. SKIN: No rash or erythema of visible areas Initial Vital Signs Initial Vital Signs: Vital Signs Temperature 98.7 F 05/14/25 12:30 Pulse Rate 96 H 05/14/25 12:30 Respiratory Rate 17 05/14/25 12:30 Blood Pressure 136/63 05/14/25 12:30 Pulse Oximetry 96 05/14/25 12:30 Oxygen Delivery Method Nasal Cannula 05/14/25 12:30 Oxygen Flow Rate 2 05/14/25 12:30 Course Orders Ordered: Acetaminophen (Acetaminophen 325 Mg Tablet) 650 mg PO Q6H PRN PRN Reason: Fever/Mild Pain (1-3) Allopurinol (Allopurinol 100 Mg Tablet) 100 mg PO DAILY [facility] Apixaban (Apixaban 5 Mg Tablet) 5 mg PO BID [facility] Last Admin: 05/14/25 21:28 Dose: Not Given Documented By: VT Diltiazem HCl (Diltiazem 30 Mg Tablet) 30 mg PO QID [facility] Last Admin: 05/14/25 21:57 Dose: Not Given Documented By: VT Divalproex Sodium (Divalproex 125 Mg Cap) 375 mg PO BID [facility] Last Admin: 05/14/25 21:58 Dose: Not Given Documented By: NH Heparin Sodium (Porcine) (Heparin Flush (Cl/Picc/Mid-Line) 50 Unit/5 Ml Syringe) 50 unit IV PRN PRN PRN Reason: Flush Ampicillin Sodium/Sulbactam (Sodium 3 gm/ Sodium Chloride) 100 mls @ 200 mls/hr IV Q6H [facility] Stop: 05/19/25 21:59 Last Infusion: 05/15/25 04:34 Dose: Infused Documented By: Admin: 05/15/25 04:04 Dose: 200 mls/hr Documented By: Infusion: 05/15/25 00:33 Dose: Infused Documented By: Admin: 05/15/25 00:03 Dose: 200 mls/hr Documented By: NH Dextrose/Sodium Chloride (Dextrose 5%-0.9% Ns) 1,000 mls @ 100 mls/hr IV CONT [facility] Last Admin: 05/14/25 21:04 Dose: 100 mls/hr Documented By: CHELSEA Dextrose (D10w) 100 mls @ 999 mls/hr IV PRN PRN PRN Reason: Hypoglycemia Insulin Human Lispro (Insulin Lispro 100 Unit/Ml 3ml Vial) 0 unit SUBCUT [facility]; Protocol Last Admin: 05/14/25 21:55 Dose: Not Given Documented By: VT Metoprolol Tartrate (Metoprolol Ir 25 Mg Tablet) 25 mg PO BID [facility] Last Admin: 05/14/25 22:36 Dose: Not Given Documented By: VT Naloxone HCl (Naloxone 0.4 Mg/Ml Vial) 0.2 mg IV Q2MIN PRN PRN Reason: Opiate Reversal Pantoprazole Sodium (Pantoprazole Dr 20 Mg Tablet) 20 mg PO 0600 [facility] Last Admin: 05/15/25 06:09 Dose: Not Given Documented By: VT Polyethylene Glycol (Polyethylene Glycol 3350 17 Gm Powd.Pack) 17 gm PO DAILY PRN PRN Reason: Constipation Quetiapine Fumarate (Quetiapine 100 Mg Tablet) 100 mg PO BID [facility] Last Admin: 05/14/25 22:36 Dose: Not Given Documented By: NH Quetiapine Fumarate (Quetiapine 100 Mg Tablet) 100 mg PO QNOON [facility] Quetiapine Fumarate (Quetiapine 25 Mg Tablet) 50 mg PO BID [facility] Last Admin: 05/14/25 22:36 Dose: Not Given Documented By: NH Sodium Chloride (Sodium Chloride 0.9% Flush) 10 ml IV PRN PRN PRN Reason: Flush Tamsulosin HCl (Tamsulosin 0.4 Mg Capsule) 0.8 mg PO BEDTIME [facility] Last Admin: 05/14/25 22:36 Dose: Not Given Documented By: NH Trazodone HCl (Trazodone 50 Mg Tablet) 50 mg PO BEDTIME [facility] Last Admin: 05/14/25 22:37 Dose: Not Given Documented By: NH Discontinued Medications Ceftriaxone Sodium 2,000 mg/ (Sodium Chloride) 100 mls @ 200 mls/hr IV NOW ONE Stop: 05/14/25 13:34 Last Infusion: 05/14/25 14:44 Dose: Infused Documented By: Admin: 05/14/25 14:08 Dose: 200 mls/hr Documented By: AILYN Sodium Chloride (Normal Saline 0.9%) 1,000 mls @ 1,000 mls/hr IV BOLUS ONE Stop: 05/14/25 14:45 Last Infusion: 05/14/25 15:56 Dose: 0 mls/hr Documented By: Admin: 05/14/25 14:07 Dose: 1,000 mls/hr Documented By: AILYN Metronidazole (Flagyl) 500 mg in 100 mls @ 100 mls/hr IV NOW ONE Stop: 05/14/25 15:21 Last Infusion: 05/14/25 18:09 Dose: Infused Documented By: Infusion: 05/14/25 17:35 Dose: 100 mls/hr Documented By: Infusion: 05/14/25 15:57 Dose: 0 mls/hr Documented By: Admin: 05/14/25 15:00 Dose: 100 mls/hr Documented By: JABIER Lactated Ringer's (Lactated Ringers) 500 mls @ 1,000 mls/hr IV BOLUS ONE Stop: 05/14/25 14:55 Lactated Ringer's (Lactated Ringers) 1,000 mls @ 1,000 mls/hr IV BOLUS ONE Stop: 05/14/25 15:46 Last Infusion: 05/14/25 19:20 Dose: Infused Documented By: Admin: 05/14/25 17:36 Dose: 1,000 mls/hr Documented By: LISSETTE Vital Signs Vital signs: Vital Signs - 8 hr 05/14/25 12:30 05/14/25 12:31 05/14/25 12:32 Temperature 98.7 F Pulse Rate 96 H 98 H Respiratory Rate 17 Blood Pressure 136/63 136/63 Pulse Oximetry 96 96 Oxygen Delivery Method Nasal Cannula Oxygen Flow Rate 2 Medical Decision Making Lab Data 05/15/25 05:05 05/15/25 05:05 Labs: Lab Results 05/14/25 Range/Units 12:44 WBC 14.5 H (4.5-11.0) X10^3/uL RBC 2.84 L (4.5-5.9) X10^6/uL Hgb 7.9 L (13.5-17.5) g/dL Hct 23.8 L (41-53) % MCV 83.9 (80-100) fL MCH 27.7 (26-34) PG MCHC 33.1 (30-36) % RDW 16.1 H (11.6-14.8) % Plt Count 160 (150-400) X10^3/uL Neut % (Auto) 80.2 H (50-75) % Lymph % (Auto) 15.7 L (25-40) % [place] % (Auto) 3.9 (3-14) % Eos % (Auto) 0.1 L (2-4) % Baso % (Auto) 0.1 (0-2) % Neut # (Auto) 76447 H (8774-8235) /uL Lymph # (Auto) 2300 (4862-8722) /uL [place] # (Auto) 600 (0-900) /uL Eos # (Auto) 0 (0-450) /uL Baso # (Auto) 0 (0-100) /uL Sodium 125 L (137-145) mmol/L Potassium 4.1 (3.4-5.1) mmol/L Chloride 85 L (98-107) mmol/L Carbon Dioxide 30 (22-32) mmol/L BUN 27 H (9-20) mg/dL Creatinine 1.60 H (0.66-1.25) mg/dL Estimated GFR 44 L (>60) mL/min BUN/Creatinine Ratio 16.9 (6-22) Glucose 121 H (70-99) mg/dL Lactate 2.1 (0.7-2.1) mmol/L Calcium 8.9 (8.4-10.2) mg/dL Total Bilirubin 0.4 (0.2-1.3) mg/dL AST 25 (17-59) IU/L ALT 13 (<50) IU/L Alkaline Phosphatase 57 (38-126) U/L Total Protein 8.0 (6.3-8.2) g/dL Albumin 3.7 (3.5-5.0) g/dL Globulin 4.3 H (1.7-4.1) g/dL Albumin/Globulin Ratio 0.9 L (1.0-2.8) Procalcitonin 0.240 (<0.5) ng/mL MDM Narrative Medical decision making narrative: 79 years old male with history of atrial fibrillation on Eliquis, hypertension, BPH, diabetes , developmental delay brought in by an ambulance for coughing fits during dinner last night. he normally only gives yes no answer at the nursing homeHe could not give us information. He has had generalized weakness as well. He only answer no to my questions including chest pain, vomiting, abdominal pain, headache, fever, difficulty breathing. on exam showed decreased lung sounds in both lungs without wheezing. He respond to verbal stimuli and breathing spontaneously without acute respiratory distress. He moves all extremities. His abdominal exam was benign. We sent a septic workup and he was started on IV Rocephin, Flagyl. His CBC showed WBC 14.5 and hemoglobin 7.9. His CMP shows sodium 125 chloride 85 BUN 27 creatinine 1.6 otherwise normal CMP. His UA, procalcitonin were pending as well the CT brain, CT chest. I discussed the case with Dr. Urban who agreed to take the patient. I told him that a CT head and CT chest without contrast is pending. I will add the CBC and type and screen. Discharge Plan Departure Patient Disposition: Admitted As Inpatient Clinical Impression: Sepsis, Pneumonia, JANIE (acute kidney injury) Anemia Qualifiers: Anemia type: unspecified type Qualified Code(s): D64.9 - Anemia, unspecified Admit Date/Time: 05/14/25 15:10 Admit Provider: Koko Urban
[2025-05-14] MEDS: SODIUM CHLORIDE 0.9% 1,000 ML 1000 ML IV (14:07)
[2025-05-14] MEDS: cefTRIAXone 2,000 MG in SODIUM CHLORIDE 0.9% 100 ML 200 MG IV (14:08)
[2025-05-14 14:25] LABS: Reflexed Lactate in 2 Hours Y
--- NOTE | 2025-05-14 14:25 | DI.CT.S_ITS ---
PROCEDURE: CT CHEST WO CON INDICATIONS: pneumonia TECHNIQUE: Noncontrast 5 mm thick sections acquired from the pulmonary apices to the posterior costophrenic angles. 1 mm lung window, 5 mm thick coronal and sagittal and 7 mm axial MIP reformats were then acquired. For radiation dose reduction, the following was used: automated exposure control, adjustment of mA and/or kV according to patient size. COMPARISON: [facility], CR, XR CHEST 1V, 08/08/2024, 5:49. FINDINGS: Image quality: Diagnostic. Lower Neck: No enlarged lymph nodes. Thyroid: No thyroid nodules which require sonographic follow up, per consensus guidelines. Axillae: No enlarged lymph nodes. Chest Wall: Unremarkable. Bones: Age-appropriate bony degenerative changes are seen. Accentuated thoracic kyphosis is seen. Lungs and Pleura: Poorly defined infiltrate can be seen within the right lower lobe. There is a mild degree of infiltrate also seen within the dependent right middle lobe, the dependent lingula, and the dependent left lower lobe. No pneumothorax or pleural effusions are seen. Heart: Heart size is normal. No pericardial effusion. Thoracic Vessels: The aorta and pulmonary arteries demonstrate normal size. Mediastinum and Ryann: No enlarged lymph nodes. Esophagus: No wall thickening. There is a small hiatal hernia. There is fluid seen within the distal esophagus. Upper Abdomen: Visualized upper abdomen solid organs and bowel loops appear normal. IMPRESSION: Poorly defined infiltrates can be seen within the dependent portions of the lungs, which is worst within the right lower lobe. There is a small hiatal hernia with presumed refluxed material within the esophagus. Please consider reflux without aspiration as a cause of the multifocal infiltrates. Dictated by: Isaias Luis M.D. on 05/14/2025 at 15:09 Approved by: Isaias Luis M.D. on 05/14/2025 at 15:12
--- NOTE | 2025-05-14 14:25 | DI.CT.S_ITS ---
PROCEDURE: CT HEAD/BRAIN WO CON INDICATIONS: drowsy TECHNIQUE: Noncontrast 4.5 mm thick angled axial sections acquired from the foramen magnum to the vertex, with coronal and sagittal reformats. For radiation dose reduction, the following was used: automated exposure control, adjustment of mA and/or kV according to patient size. COMPARISON: [facility], CT, CT HEAD/BRAIN WO CON, 08/06/2024, 19:56. FINDINGS: CSF spaces: Basal cisterns are patent. No extra-axial fluid collections. Ventricles are normal in size and shape. Brain: No midline shift. No intracranial mass effect or hemorrhage. Trent- white matter interface is normal. Advanced atrophy and white matter chronic ischemic change. Right occipital subacute chronic infarct is new from the prior exam. No mass effect. Skull and face: Calvarium and visualized facial bones are intact, without suspicious lesions. Sinuses: Visualized sinuses and mastoids are clear. 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 Approved by: Urbano Ba M.D. on 05/14/2025 at 14:59
[2025-05-14] MEDS: metroNIDAZOLE 500 MG/100 ML PIGGYBACK 100 MG IV (15:00)
--- NOTE | 2025-05-14 15:58 | PC.NURSE ---
Flagyl and NS 0.9% running at time of admit to acute care. See MAR. LR not started, unable to obtain second IV site. AC RN aware.
--- NOTE | 2025-05-14 16:06 | PC.NURSE ---
Notified ST in RT that pt requires EKG. RT verbalized understanding. Pt now in acute care bed, RT aware @ 1600
[2025-05-14 16:33] LABS: Procalcitonin 0.240 ng/mL (<0.5)
[2025-05-14] MEDS: LACTATED RINGERS 1,000 ML 1000 ML IV (17:36)
--- NOTE | 2025-05-14 18:24 | EKG_ITS ---
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
--- NOTE | 2025-05-14 18:31 | PC.NURSE ---
Pt brought up from ED, IV infiltrated. New one placed by ID nurse. IV fluids and antibiotics started. No reports of pain. Speech order placed for aspiration risk. 12 lead EKG completed.
--- NOTE | 2025-05-14 19:08 | PM.HP.IH.1 ---
History of Present Illness History of Present Illness Date Patient Seen: 08/11/24 Time Patient Seen: 07:55 Chief complaint: possible aspiration/Cough Narrative: 79-year-old male with PAF, HTN, T2DM, developmental delay. Brought in by ambulance from residence ([facility]) due to coughing fits at dinner last night with concerns/suspicion for aspiration. Limited history as patient is unaccompanied and only able to give simple yes/no answers. Denies significant pain, difficulty breathing, nausea, headache, fever. Labs notable for WBC 7.5 w/left shift, hgb 7.9, MCV 83.9, sodium 125, BUN 27, creatinine 1.6, GFR 44, glucose 121, procalcitonin 0.240; remainder of CBC, CMP without significant derangements. CXR shows right mid lung and left lower lobe opacification consistent with pneumonia or aspiration. CC chest demonstrates infiltrates within dependent portions of lungs right > left. CT head notable for subacute to chronic right occipital infarct which is new from previous exam on 08/06/24, otherwise advanced atrophy and chronic ischemic change without acute hemorrhage or mass effect. [facility] Medical History (Updated 05/14/25 @ 20:11 by Koko Urban MD) Paroxysmal atrial fibrillation with rapid ventricular response Schizophrenia in full remission with history of multiple episodes Surgical History Anesthesia Status post hernia repair (~2005) Status post appendectomy Family History Father History of heart disease Stroke Mother History of heart disease Stroke Grandfather History of heart disease Grandmother Stroke Grandfather History of heart disease Grandmother Cancer Social History household members: spouse Smoking Status: Smoker, status unknown alcohol intake: never Meds Home Medications and Allergies Home Medications ?Medication ?Instructions ?Recorded ?Confirmed ?Type divalproex 125 mg tablet,delayed 375 mg (3 x 125 mg) PO BID #180 06/23/22 09/30/24 Rx release (Depakote) tabs acetaminophen 325 mg tablet 650 mg (2 x 325 mg) PO QID #240 06/27/23 09/30/24 Rx tabs allopurinol 100 mg tablet 100 mg PO DAILY #30 tabs 06/27/23 09/30/24 Rx apixaban 5 mg tablet (Eliquis) See Rx Instructions .Route 06/27/23 09/30/24 Rx .COMPLEX #60 ea loratadine 10 mg tablet 10 mg PO DAILY #30 tabs 06/27/23 09/30/24 Rx metoprolol tartrate 25 mg tablet 25 mg PO BID #60 tabs 06/27/23 09/30/24 Rx quetiapine 100 mg tablet See Rx Instructions PO .COMPLEX 06/27/23 09/30/24 Rx #120 tabs tamsulosin 0.4 mg capsule (Flomax) 0.8 mg (2 x 0.4 mg) PO BEDTIME #60 06/27/23 09/30/24 Rx caps trazodone 50 mg tablet 50 mg PO BEDTIME #30 tabs 06/27/23 09/30/24 Rx diltiazem HCl 30 mg tablet 30 mg PO QID #120 tabs 07/08/23 09/30/24 Rx polyethylene glycol 3350 17 17 g PO DAILY PRN constipation 06/25/24 09/30/24 Rx gram/dose oral powder #510 grams Allergies Allergy/AdvReac Type Severity Reaction Status Date / Time No Known Drug Allergies Allergy Verified 05/14/25 12:30 Exam Vital Signs (past 8 hours): - 05/14/25 12:30 05/14/25 12:31 05/14/25 12:32 Temperature 98.7 F Pulse Rate 96 H 98 H Respiratory Rate 17 Blood Pressure 136/63 136/63 Pulse Oximetry 96 96 Oxygen Delivery Method Nasal Cannula Oxygen Flow Rate 2 05/14/25 13:00 05/14/25 13:00 05/14/25 13:30 Temperature Pulse Rate 94 H 92 H Respiratory Rate Blood Pressure 152/68 H Pulse Oximetry 97 99 Oxygen Delivery Method Nasal Cannula Oxygen Flow Rate 2 05/14/25 13:30 05/14/25 14:00 05/14/25 14:00 Temperature Pulse Rate 88 Respiratory Rate Blood Pressure 148/116 H 123/60 Pulse Oximetry 100 Oxygen Delivery Method Nasal Cannula Oxygen Flow Rate 2 05/14/25 14:30 05/14/25 14:30 05/14/25 15:00 Temperature Pulse Rate 93 H 85 Respiratory Rate Blood Pressure 131/81 Pulse Oximetry 99 100 Oxygen Delivery Method Oxygen Flow Rate 11/21/25 15:00 05/14/25 15:15 05/14/25 15:15 Temperature Pulse Rate 90 Respiratory Rate Blood Pressure 132/67 127/63 Pulse Oximetry 96 Oxygen Delivery Method Nasal Cannula Oxygen Flow Rate 2 05/14/25 15:30 05/14/25 15:30 05/14/25 15:56 Temperature 97.5 F L Pulse Rate 93 H 92 H Respiratory Rate 16 Blood Pressure 128/63 98/43 L Pulse Oximetry 99 94 Oxygen Delivery Method Oxygen Flow Rate 4 05/14/25 16:39 Temperature Pulse Rate Respiratory Rate Blood Pressure Pulse Oximetry Oxygen Delivery Method Nasal Cannula Oxygen Flow Rate Oxygen Delivery Method Nasal Cannula Oxygen Flow Rate 4 Narrative Exam Narrative: General: Pleasant, NAD HEENT: NC/AT, EOMI, edentulous, moist membranes CV: RRR, normal S1-S2, no m/g/r Resp: Decreased lung sounds in LLL, cwob Abd: Soft, NTND, +BS Ext: No edema Skin: No rash or lesions noted Neuro: Arousable, moves all extremities, gives yes/no answer to most questions Objective Imaging Chest x-ray: Radiologist's impression: XR CHEST 1V FINDINGS: Surgical changes and devices: None. Lungs and pleura: Lungs are abnormal with moderate right midlung and left lower lobe alveolar opacification consistent with pneumonia or aspiration.. No pleural effusions or pneumothorax. Mediastinum: Mediastinal contours appear normal. Heart size is normal. Bones and chest wall: No suspicious bony lesions. Overlying soft tissues appear unremarkable. IMPRESSION: Alveolar infiltration as discussed above could represent either bilateral pneumonia or aspiration. Dictated by: Jarrell Gray M.D. on 05/14/2025 at 13:11 Approved by: Jarrell Gray M.D. on 05/14/2025 at 13:12 CT scan - head: Radiologist's impression: CT HEAD/BRAIN WO CON FINDINGS: CSF spaces: Basal cisterns are patent. No extra-axial fluid collections. Ventricles are normal in size and shape. Brain: No midline shift. No intracranial mass effect or hemorrhage. Trent-white matter interface is normal. Advanced atrophy and white matter chronic ischemic change. Right occipital subacute chronic infarct is new from the prior exam. No mass effect. Skull and face: Calvarium and visualized facial bones are intact, without suspicious lesions. Sinuses: Visualized sinuses and mastoids are clear. IMPRESSION: Subacute to chronic right occipital infarct, new from the prior exam 08/06/24. Advanced atrophy and chronic ischemic change without acute hemorrhage or mass effect. Approved by: Urbano Ba M.D. on 05/14/2025 at 14:59 CT scan - chest: Radiologist's impression: CT CHEST WO CON FINDINGS: Image quality: Diagnostic. Lower Neck: No enlarged lymph nodes. Thyroid: No thyroid nodules which require sonographic follow up, per consensus guidelines. Axillae: No enlarged lymph nodes. Chest Wall: Unremarkable. Bones: Age-appropriate bony degenerative changes are seen. Accentuated thoracic kyphosis is seen. Lungs and Pleura: Poorly defined infiltrate can be seen within the right lower lobe. There is a mild degree of infiltrate also seen within the dependent right middle lobe, the dependent lingula, and the dependent left lower lobe. No pneumothorax or pleural effusions are seen. Heart: Heart size is normal. No pericardial effusion. Thoracic Vessels: The aorta and pulmonary arteries demonstrate normal size. Mediastinum and Ryann: No enlarged lymph nodes. Esophagus: No wall thickening. There is a small hiatal hernia. There is fluid seen within the distal esophagus. Upper Abdomen: Visualized upper abdomen solid organs and bowel loops appear normal. IMPRESSION: Poorly defined infiltrates can be seen within the dependent portions of the lungs, which is worst within the right lower lobe. There is a small hiatal hernia with presumed refluxed material within the esophagus. Please consider reflux without aspiration as a cause of the multifocal infiltrates. Dictated by: Isaias Luis M.D. on 05/14/2025 at 15:09 Approved by: Isaias Luis M.D. on 05/14/2025 at 15:12 Labs 05/14/25 12:44 05/14/25 12:44 Labs: Laboratory Results - last 24 hr 05/14/25 12:44 WBC 14.5 H RBC 2.84 L Hgb 7.9 L Hct 23.8 L MCV 83.9 MCH 27.7 MCHC 33.1 RDW 16.1 H Plt Count 160 Neut % (Auto) 80.2 H Lymph % (Auto) 15.7 L [place] % (Auto) 3.9 Eos % (Auto) 0.1 L Baso % (Auto) 0.1 Neut # (Auto) 35819 H Lymph # (Auto) 2300 [place] # (Auto) 600 Eos # (Auto) 0 Baso # (Auto) 0 Sodium 125 L Potassium 4.1 Chloride 85 L Carbon Dioxide 30 BUN 27 H Creatinine 1.60 H Estimated GFR 44 L BUN/Creatinine Ratio 16.9 Glucose 121 H Lactate 2.1 Calcium 8.9 Total Bilirubin 0.4 AST 25 ALT 13 Alkaline Phosphatase 57 Total Protein 8.0 Albumin 3.7 Globulin 4.3 H Albumin/Globulin Ratio 0.9 L Procalcitonin 0.240 Assessment & Plan Assessment and plan (1) Aspiration pneumonia: Qualifiers: Aspiration pneumonia type: unspecified Laterality: bilateral Lung location: lower lobe of lung Qualified Code(s): J69.0 - Pneumonitis due to inhalation of food and vomit Status: Acute (2) JANIE (acute kidney injury): Status: Acute (3) Hyponatremia: Status: Acute (4) Anemia: Qualifiers: Anemia type: unspecified type Qualified Code(s): D64.9 - Anemia, unspecified Status: Acute (5) Paroxysmal atrial fibrillation: Status: Chronic (6) Essential hypertension: Status: Chronic (7) Type 2 diabetes, diet controlled: Problem details: 07/10/2023: A1 6.4% (previous 6.2% 03/19/2022) Status: Acute (8) Developmental disorder of scholastic skills, unspecified: Status: Chronic (9) Insomnia: Qualifiers: Insomnia type: due to other mental disorder Qualified Code(s): F51.05 - Insomnia due to other mental disorder; F99 - Mental disorder, not otherwise specified Status: Chronic (10) Benign prostatic hyperplasia with lower urinary tract symptoms: Qualifiers: Lower urinary tract symptom detail: nocturia Qualified Code(s): N40.1 - Benign prostatic hyperplasia with lower urinary tract symptoms; R35.1 - Nocturia Status: Chronic (11) Gout, arthritis: Status: Chronic Assessment & Plan narrative: 79-year-old male with PAF, HTN, T2DM, developmental delay admitted for suspected aspiration pneumonia in context of recent choking event. #aspiration PNA Witnessed choking episodes during dinner night before admission. Patient somewhat drowsy but otherwise no systemic symptoms. Labs notable for leukocytosis with left shift, imaging consistent with bilateral aspiration pneumonia. -s/p ceftriaxone + Flagyl in ER (05/14) -switch to unasyn 3 g q.6h -npo until swallow eval 2/2 aspiration risk #JANIE Baseline normal renal function, likely due to poor p.o. intake prior to admission. -s/p 1 L LR bolus in ER -mIVF @100cc/hr -avoid nephrotoxic meds #hyponatremia Likely due to urinary losses with inadequate replacement. -D5 NS as above #anemia Chronic issue but significant drop compared to prior levels. Potential occult bleed given use of blood thinner. -trend cbc -transfuse for hgb < 7 -stool guaiac #PAF #hypertension Rate controlled at this time. -home eliquis, diltiazem, metoprolol #diabetes Diet-controlled. -sensitive SSI -diabetic diet pending swallow eval #developmental disorder -home quetiapine 150 mg q.a.m., 100 mg midday, 150 mg q.h.s. -home depakote 275 mg b.i.d. -whom trazodone 50 mg q.h.s. #BPH -home tamsulosin #gout -home allopurinol Dispo: acute care Diet: npo pending swallow eval GI ppx: ppi DVT ppx: eliquis Code: FULL PCP: Wilmar MDM: Hector (brother, ) Time-Based Coding :: 75 minutes spent with patient and on the chart (including review of chart, obtaining history, exam, reviewing outside data, placing orders, documenting exam and treatment plan, and counseling patient) on 05/14/2025. PROFEE Housing Quality Standard Inspector Document charge(s): Yes Charge Codes Initial inpatient/observation care: [id number]
[2025-05-14 19:44] LABS: Add Manual Diff / Slide Review NO; Lymphocytes Absolute Auto 2100 /uL (1100-4500); Mean Corpuscular HGB Conc 33.0 % (30-36); Mean Corpuscular Hemoglobin 27.6 PG (26-34); Mean Corpuscular Volume 83.6 fL (80-100); Platelet Count 127 X10^3/uL (150-400)
[2025-05-14 19:50] LABS: Hematocrit 20.1 % (41-53); Hemoglobin 6.6 g/dL (13.5-17.5)
[2025-05-14] MEDS: DEXTROSE 5%-0.9% NS 1,000 ML 100 ML IV (21:04)
[2025-05-15] VITALS (11 sets, daily range): BP systolic 97–138; BP diastolic 47–61; PULSE 65–93; RESP 18–23; TEMP 36.4–36.6; O2SAT 94–99
[2025-05-15] MEDS: AMPICILLIN/SULBACTAM 3 GM 3 GM in SODIUM CHLORIDE 0.9% 100 ML IV ×5 (00:03→22:31)
[2025-05-15 01:58] LABS: Coronavirus NL 63 Not Detected (Not Detect); SARS- CoV-2 Not Detected (Not Detecte)
[2025-05-15 06:16] LABS: Hemoglobin A1C% w Est Avg Glu 4.7 % (4.0-6.0)
[2025-05-15 06:20] LABS: HEMOLYSIS < 15 (0-50); Iron 60 ug/dL (49-181)
[2025-05-15 06:21] LABS: Blood Urea Nitrogen 22 mg/dL (9-20); Calcium 8.8 mg/dL (8.4-10.2); Carbon Dioxide 30 mmol/L (22-32); Chloride 97 mmol/L (98-107); Estimated Glomerular Filt Rate 55 mL/min (>60); Glucose 114 mg/dL (70-99); HEMOLYSIS < 15 (0-50); Magnesium 2.1 mg/dL (1.6-2.3); Potassium 3.4 mmol/L (3.4-5.1); Sodium 133 mmol/L (137-145)
[2025-05-15 06:30] LABS: Percent Iron Saturation 28 % (20-50); Total Iron Binding Capacity 217 ug/dL (261-462); Transferrin 166 mg/dL (206-381)
[2025-05-15 06:51] LABS: Hematocrit 23.0 % (41-53); Hemoglobin 7.9 g/dL (13.5-17.5); Lymphocytes Absolute Auto 2100 /uL (1100-4500); Mean Corpuscular HGB Conc 34.1 % (30-36); Mean Corpuscular Hemoglobin 28.3 PG (26-34); Mean Corpuscular Volume 82.9 fL (80-100)
[2025-05-15 06:55] LABS: Add Manual Diff / Slide Review SLIDE REVIEW; Ferritin 134 ng/mL (18-464)
[2025-05-15 06:57] LABS: Rouleaux 1+
[2025-05-15] MEDS: POTASSIUM CHLORIDE IN WATER 10 MEQ/100 ML PIGGYBACK 100 MEQ IV ×2 (09:34→10:34)
--- NOTE | 2025-05-15 09:36 | CM.DANOTE ---
Initial DCP Assessment Note. Review EMR review. Patient is LTC at . Payor:??MCR, Medicaid PCP: Summary & Plan:?Arrived to ED via EMS c/o SOB and cough. Admitted INPT. Dx. Assspiration PNA. Plan: IV Abx, Nebs PRN. Monitor for improvement. Discharge Planning/Care Management CM Discharge Assessment Start: 05/14/25 15:19 Freq: Status: Active Protocol: Document 05/15/25 09:33 (Rec: 05/15/25 09:36 [email or web address]) Discharge Planning Assessment Assigned Discharge Dorothy Benson RN CM Senior Teradata Developer Provider Dr. Urban Insurance Medicare Advance Directives? No History Provided By Medical Record Prior Living Skilled Nurse Facility Arrangements Comment LTC at [facility] Household Members spouse Facility Name [facility] Admitted From: Independent with ADL No 's Is patient alert and No oriented? Needs Assistance Bathing,Eating,Grooming,Meal Prep,Toileting,Managing With Medications Caregiver for No Another DME Already Rented / Bath Bench,Wheelchair,FWW / Walker Owned Discharge Plan [facility] Facility Transportation Wheelchair Arrangement Referrals Initiated None needed Comment LTC at Review Status In Process Please Provide Date 05/15/25 Initial DC Assessment Was Performed Next Review Type Continued Stay Review
[2025-05-15] MEDS: METOPROLOL IR 25 MG TABLET PO ×2 (10:06→21:11)
[2025-05-15] MEDS: DIVALPROEX 125 MG CAP 375 MG PO ×2 (10:07→21:12)
[2025-05-15 10:34] LABS: Appearance Urine UA CLEAR; Bilirubin Urine UA NEGATIVE (NEGATIVE); Color Urine UA YELLOW; Glucose Urine UA NEGATIVE (Negative); Ketones Urine UA NEGATIVE (NEGATIVE); Leukocyte Esterase Urine UA NEGATIVE (NEGATIVE); Nitrite Urine UA NEGATIVE (Negative); Occult Blood Urine UA NEGATIVE (Negative); Protein Urine UA NEGATIVE (Negative); Specific Gravity Urine UA <=1.005 (1.000-1.035); Urobilinogen Urine UA 0.2 E.U./dL (0.2); pH Urine UA 7.0 (4.5-8.0)
[2025-05-15 10:47] LABS: Culture Indicated Urine Cult Not Indicated
--- NOTE | 2025-05-15 11:47 | PM.PN.1 ---
Subjective Subjective Date Patient Seen: 05/15/25 Time Patient Seen: 10:05 Interval history: Chief complaint aspiration pneumonia, JANIE, acute on chronic anemia Witnessed choking event prior to admission for [facility] with persistent anemia overnight did receive 1 bag PRBCs this morning he is in sinus rhythm we will hold Eliquis for now. He is NPO pending speech eval we will try to get that done today. He is requiring a little bit of O2 via NC apparently he is on that at baseline but overall his respiration looks okay. Exam Vital Signs (past 8 hours): - 05/15/25 04:11 05/15/25 08:53 05/15/25 10:00 Temperature 97.9 F Pulse Rate 93 H Respiratory Rate 22 Blood Pressure 128/61 Pulse Oximetry 98 Oxygen Delivery Method Oximask Nasal Cannula Oxygen Flow Rate 4 05/15/25 10:07 05/15/25 11:19 Temperature 97.5 F L Pulse Rate 90 67 Respiratory Rate 18 Blood Pressure 138/57 L Pulse Oximetry 99 Oxygen Delivery Method Oxygen Flow Rate 4 Oxygen Delivery Method Nasal Cannula Oxygen Flow Rate 4 Const Other: Developmentally delayed in bed Resp Other: Moving air well on 2 L via nasal cannula Cardio Other: Regular rate and rhythm S1-S2 no pedal edema GI Other: Soft nontender active bowel sounds Neuro Other: Asleep but arousable makes appropriate yes no answers to simple questions Objective Labs 05/15/25 05:05 05/15/25 05:05 Labs: Laboratory Results - last 24 hr 05/14/25 05/14/25 05/14/25 12:44 19:27 21:05 WBC 14.5 H 11.2 H RBC 2.84 L 2.40 L Hgb 7.9 L 6.6 L* Hct 23.8 L 20.1 L* MCV 83.9 83.6 MCH 27.7 27.6 MCHC 33.1 33.0 RDW 16.1 H 16.0 H Plt Count 160 127 L Neut % (Auto) 80.2 H 76.5 H Lymph % (Auto) 15.7 L 19.1 L [place] % (Auto) 3.9 4.2 Eos % (Auto) 0.1 L 0.1 L Baso % (Auto) 0.1 0.1 Neut # (Auto) 32921 H 8600 H Lymph # (Auto) 2300 2100 [place] # (Auto) 600 500 Eos # (Auto) 0 0 Baso # (Auto) 0 0 Platelet Estimate RBC Morphology Rouleaux Sodium 125 L Potassium 4.1 Chloride 85 L Carbon Dioxide 30 BUN 27 H Creatinine 1.60 H Estimated GFR 44 L BUN/Creatinine Ratio 16.9 Glucose 121 H POC Whole Bld Glucose 120 H Hemoglobin A1c Lactate 2.1 Calcium 8.9 Magnesium Iron TIBC % Saturation Transferrin Ferritin Total Bilirubin 0.4 AST 25 ALT 13 Alkaline Phosphatase 57 Total Protein 8.0 Albumin 3.7 Globulin 4.3 H Albumin/Globulin Ratio 0.9 L Procalcitonin 0.240 Urine Color Urine Appearance Urine pH Ur Specific [place] Urine Protein Urine Glucose (UA) Urine Ketones Urine Occult Blood Urine Nitrate Urine Bilirubin Urine Urobilinogen Ur Leukocyte Esterase Urine RBC Urine WBC Ur Squamous Epith Cells Urine Bacteria Ur Culture Indicated? Vol Urine Centrifuged Chlamy pneumoniae PCR Adenovirus (PCR) B. pertussis DNA (PCR) B.parapertussis DNA PCR Coronavirus OC43 (PCR) Coronavirus HKU1 (PCR) Coronavirus 229E (PCR) SARS-CoV-2 (PCR) Coronavirus NL63 (PCR) Human Metapneumovir PCR Influenza Type A (PCR) Influenza Type B (PCR) M. pneumoniae (PCR) Parainfluenza 1 (PCR) Parainfluenza 2 (PCR) Parainfluenza 3 (PCR) Parainfluenza 4 (PCR) RSV (PCR) Entero/Rhino (PCR) Blood Type O Positive Antibody Screen Negative Crossmatch See Detail 05/15/25 05/15/25 05/15/25 00:39 05:05 10:17 WBC 11.2 H RBC 2.78 L Hgb 7.9 L Hct 23.0 L MCV 82.9 MCH 28.3 MCHC 34.1 RDW 15.7 H Plt Count TNP Neut % (Auto) 76.4 H Lymph % (Auto) 18.4 L [place] % (Auto) 4.5 Eos % (Auto) 0.3 L Baso % (Auto) 0.4 Neut # (Auto) 8600 H Lymph # (Auto) 2100 [place] # (Auto) 500 Eos # (Auto) 0 Baso # (Auto) 0 Platelet Estimate Adequate on smear RBC Morphology See below Rouleaux 1+ H Sodium 133 L Potassium 3.4 Chloride 97 L Carbon Dioxide 30 BUN 22 H Creatinine 1.32 H Estimated GFR 55 L BUN/Creatinine Ratio 16.7 Glucose 114 H POC Whole Bld Glucose Hemoglobin A1c 4.7 Lactate Calcium 8.8 Magnesium 2.1 Iron 60 TIBC 217 L % Saturation 28 Transferrin 166 L Ferritin 134 Total Bilirubin AST ALT Alkaline Phosphatase Total Protein Albumin Globulin Albumin/Globulin Ratio Procalcitonin Urine Color Yellow Urine Appearance Clear Urine pH 7.0 Ur Specific [place] <=1.005 Urine Protein Negative Urine Glucose (UA) Negative Urine Ketones Negative Urine Occult Blood Negative Urine Nitrate Negative Urine Bilirubin Negative Urine Urobilinogen 0.2 Ur Leukocyte Esterase Negative Urine RBC None seen Urine WBC None seen Ur Squamous Epith Cells 0-1 /hpf Urine Bacteria None seen Ur Culture Indicated? Cult not indicated Vol Urine Centrifuged 10ml (spun) Chlamy pneumoniae PCR Not detected Adenovirus (PCR) Not detected B. pertussis DNA (PCR) Not detected B.parapertussis DNA PCR Not detected Coronavirus OC43 (PCR) Not detected Coronavirus HKU1 (PCR) Not detected Coronavirus 229E (PCR) Not detected SARS-CoV-2 (PCR) Not detected Coronavirus NL63 (PCR) Not detected Human Metapneumovir PCR Not detected Influenza Type A (PCR) Not detected Influenza Type B (PCR) Not detected M. pneumoniae (PCR) Not detected Parainfluenza 1 (PCR) Not detected Parainfluenza 2 (PCR) Not detected Parainfluenza 3 (PCR) Not detected Parainfluenza 4 (PCR) Not detected RSV (PCR) Not detected Entero/Rhino (PCR) Not detected Blood Type Antibody Screen [facility] Medical History (Updated 05/14/25 @ 20:11 by Koko Urban MD) Paroxysmal atrial fibrillation with rapid ventricular response Schizophrenia in full remission with history of multiple episodes Surgical History Anesthesia Status post hernia repair (~2005) Status post appendectomy Family History Father History of heart disease Stroke Mother History of heart disease Stroke Grandfather History of heart disease Grandmother Stroke Grandfather History of heart disease Grandmother Cancer Social History household members: spouse Smoking Status: Smoker, status unknown alcohol intake: never Assessment & Plan Assessment & Plan narrative: 79-year-old male with PAF, HTN, T2DM, developmental delay admitted for suspected aspiration pneumonia in context of recent choking event. #aspiration PNA Witnessed choking episodes during dinner night before admission. Patient somewhat drowsy but otherwise no systemic symptoms. Labs notable for leukocytosis with left shift, imaging consistent with bilateral aspiration pneumonia. S/p ceftriaxone + Flagyl in ER (05/14), continue on unasyn 3g q6h Swallow eval pending NPO for now #JANIE Baseline normal renal function, s/p 1 L LR bolus in ER, continue IVF @100cc/hr for now avoid nephrotoxic meds resume diet when cleared #hyponatremia Likely due to urinary losses with inadequate replacement continue normal saline replacement #anemia normocytic acute on chronic Chronic issue but significant drop compared to prior levels. Potential occult bleed given use of blood thinner? He did get 1 unit blood overnight hemoglobin 7.9 this morning monitor. Guaiac pending. #PAF #hypertension He is in sinus rhythm on monitor with active bleed of some variety going on we will hold Eliquis for now continue metoprolol #diabetes Diet-controlled, continue sensitive SSI diabetic diet pending swallow eval #developmental disorder home quetiapine 150 mg q.a.m., 100 mg midday, 150 mg q.h.s. home depakote 275 mg b.i.d. home trazodone 50 mg q.h.s. #BPH home tamsulosin #gout home allopurinol Dispo: acute care Diet: NPO pending swallow eval GI ppx: ppi DVT ppx: SCDs, possible active bleed Code: FULL PCP: Wilmar MDM: Hector (brother, ) Time-Based Coding :: [TOTAL MINUTES] spent with patient and on the chart (including review of chart, obtaining history, exam, reviewing outside data, placing orders, documenting exam and treatment plan, and counseling patient) on [DATE].
[2025-05-15] MEDS: DEXTROSE 5%-0.9% NS 1,000 ML 100 ML IV (14:54)
[2025-05-15] MEDS: TAMSULOSIN 0.4 MG CAPSULE 0.8 MG PO (21:11)
[2025-05-16] VITALS (9 sets, daily range): BP systolic 116–152; BP diastolic 50–72; PULSE 73–92; RESP 20–22; TEMP 36.5–36.9; O2SAT 92–100
[2025-05-16] MEDS: DEXTROSE 5%-0.9% NS 1,000 ML 100 ML IV ×2 (02:13→21:42)
[2025-05-16] MEDS: AMPICILLIN/SULBACTAM 3 GM 3 GM in SODIUM CHLORIDE 0.9% 100 ML IV ×4 (04:18→21:59)
[2025-05-16] MEDS: PANTOPRAZOLE DR 20 MG TABLET PO (06:23)
--- NOTE | 2025-05-16 10:20 | P.PN_ITS ---
Subjective Subjective Date Patient Seen: 05/16/25 Time Patient Seen: 10:10 Interval history: chief complaint suspected aspiration pneumonia overall status a bit better today he is alert and responsive no markedly increased work of breathing he is receiving Unasyn has 2 L on for comfort satting well still pending swallow eval. Exam Vital Signs (past 8 hours): - 05/16/25 04:00 05/16/25 08:04 Temperature 98.2 F 98.2 F Pulse Rate 78 80 Respiratory Rate 20 21 Blood Pressure 141/64 H 127/61 Pulse Oximetry 100 94 Oxygen Flow Rate 4 3 Oxygen Delivery Method Nasal Cannula Oxygen Flow Rate 3 Narrative Exam Narrative: Resting hospital bed Resp Other: moving air well on 2 L via nasal cannula I do not hear marked rhonchi on either side he does have a bad snore and cough. Cardio Other: Regular rate with mild ejection systolic murmur no pedal edema GI Other: soft nontender reduced bowel sounds Neuro Other: alert awake gives yes no responses to simple questions Objective Labs 05/15/25 05:05 05/15/25 05:05 Labs: Laboratory Results - last 24 hr 05/15/25 05/15/25 05/15/25 10:17 11:46 16:31 POC Whole Bld Glucose 120 H 117 H Urine Color Yellow Urine Appearance Clear Urine pH 7.0 Ur Specific [place] <=1.005 Urine Protein Negative Urine Glucose (UA) Negative Urine Ketones Negative Urine Occult Blood Negative Urine Nitrate Negative Urine Bilirubin Negative Urine Urobilinogen 0.2 Ur Leukocyte Esterase Negative Urine RBC None seen Urine WBC None seen Ur Squamous Epith Cells 0-1 /hpf Urine Bacteria None seen Ur Culture Indicated? Cult not indicated Vol Urine Centrifuged 10ml (spun) 05/15/25 05/16/25 21:08 08:03 POC Whole Bld Glucose 113 H 90 Urine Color Urine Appearance Urine pH Ur Specific [place] Urine Protein Urine Glucose (UA) Urine Ketones Urine Occult Blood Urine Nitrate Urine Bilirubin Urine Urobilinogen Ur Leukocyte Esterase Urine RBC Urine WBC Ur Squamous Epith Cells Urine Bacteria Ur Culture Indicated? Vol Urine Centrifuged [facility] Medical History (Updated 05/14/25 @ 20:11 by Koko Urban MD) Paroxysmal atrial fibrillation with rapid ventricular response Schizophrenia in full remission with history of multiple episodes Surgical History Anesthesia Status post hernia repair (~2005) Status post appendectomy Family History Father History of heart disease Stroke Mother History of heart disease Stroke Grandfather History of heart disease Grandmother Stroke Grandfather History of heart disease Grandmother Cancer Social History household members: spouse Smoking Status: Smoker, status unknown alcohol intake: never Assessment & Plan Assessment & Plan narrative: 79-year-old male with PAF, HTN, T2DM, developmental delay admitted for suspected aspiration pneumonia in context of recent choking event. #aspiration PNA Witnessed choking episodes during dinner night before admission. Patient somewhat drowsy but otherwise no systemic symptoms. Labs notable for leukocytosis with left shift, imaging consistent with bilateral aspiration pneumonia. S/p ceftriaxone + Flagyl in ER (05/14), continue on unasyn 3g q6h Swallow eval pending NPO for now #JANIE Baseline normal renal function, s/p 1 L LR bolus in ER, continue IVF @100cc/hr for now avoid nephrotoxic meds resume diet when cleared #hyponatremia Likely due to urinary losses with inadequate replacement continue normal saline replacement #new subacute/chronic R occipital lobe infarct Noted on intake imaging outside any window to treat - already a residential resident at [facility]. Not sure what this is caused by but could contribute to dysphagia issues. #anemia normocytic acute on chronic Chronic issue but significant drop compared to prior levels. Potential occult bleed given use of blood thinner so holding Eliquis for now. He did get 1 unit blood over Saturday night continue to monitor and replete as needed. I do note iron low normal. if continues to drop may need colonoscopy. #PAF #hypertension He is in sinus rhythm on monitor with active bleed of some variety going on we will hold Eliquis for now continue metoprolol #diabetes Diet-controlled, continue sensitive SSI diabetic diet pending swallow eval sips and chips ok if bedside swallow eval ok for that requires suction before pills #developmental disorder home quetiapine 150 mg q.a.m., 100 mg midday, 150 mg q.h.s. home depakote 275 mg b.i.d. home trazodone 50 mg q.h.s. #BPH home tamsulosin #gout home allopurinol Dispo: acute care Diet: NPO pending swallow eval, ok for bedside swallow tests GI ppx: ppi DVT ppx: SCDs, possible active bleed Code: FULL PCP: Wilmar MDM: Hector (brother, ) Time-Based Coding :: [TOTAL MINUTES] spent with patient and on the chart (including review of chart, obtaining history, exam, reviewing outside data, placing orders, documenting exam and treatment plan, and counseling patient) on [DATE].
[2025-05-16] MEDS: DIVALPROEX 125 MG CAP 375 MG PO (10:26)
[2025-05-16] MEDS: METOPROLOL IR 25 MG TABLET PO (10:36)
[2025-05-16 11:34] LABS: Add Manual Diff / Slide Review NO; Hematocrit 23.5 % (41-53); Hemoglobin 7.9 g/dL (13.5-17.5); Lymphocytes Absolute Auto 2000 /uL (1100-4500); Mean Corpuscular HGB Conc 33.8 % (30-36); Mean Corpuscular Hemoglobin 28.9 PG (26-34); Mean Corpuscular Volume 85.6 fL (80-100); Platelet Count 154 X10^3/uL (150-400)
[2025-05-16 11:46] LABS: Alanine Aminotransferase 17 IU/L (<50); Albumin 3.0 g/dL (3.5-5.0); Albumin Globulin Ratio 0.8 (1.0-2.8); Alkaline Phosphatase 53 U/L (38-126); Blood Urea Nitrogen 12 mg/dL (9-20); Calcium 9.1 mg/dL (8.4-10.2); Carbon Dioxide 29 mmol/L (22-32); Chloride 108 mmol/L (98-107); Estimated Glomerular Filt Rate > 60 mL/min (>60); Globulin 3.9 g/dL (1.7-4.1); Glucose 100 mg/dL (70-99); HEMOLYSIS < 15 (0-50); Potassium 3.2 mmol/L (3.4-5.1); Sodium 143 mmol/L (137-145); Total Protein 6.9 g/dL (6.3-8.2)
--- NOTE | 2025-05-16 12:36 | CM.DPNOTE ---
DCP note FOREIGN EXCHANGE STUDENT COORDINATOR reviewed EMR per chart, MRI showed subacute infarct. IV abx. more alert today. plan for bedside swallow with nursing- pt eager to eat still NPO. FOREIGN EXCHANGE STUDENT COORDINATOR spoke with Julia, can take back once medically cleared. no PASRR likely needed, no changes in mentation/bx. P: anticipate eventual return to [facility] when stable. follow closely for DCP COordination SANTOSH Morales
--- NOTE | 2025-05-16 13:19 | ST.IPCSEOM ---
Visit Care Team Role Provider Type Evelyn Johnson MD Emergency Provider Physician Referring Provider Specialty: Emergency Medicine Address: [address] [place] [address], [id number] Fax: Email: [email or web address] Patel Magaña MD Attending Provider Physician Specialty: Family Practice Address: [address] [facility], [place], [address] Email: [email or web address] Koko Urban MD Admit Provider Physician Other Providers Primary Care Provider Specialty: Family Practice Obstetrics Address: [address] [facility], [place], [address] Email: [email or web address] Current Diagnoses Anemia, unspecified (05/14/25) Type 2 diabetes mellitus without complications (05/14/25) Hypo-osmolality and hyponatremia (05/14/25) Insomnia due to other mental disorder (05/14/25) Developmental disorder of scholastic skills, unspecified (05/14/25) Mental disorder, not otherwise specified (05/14/25) Essential (primary) hypertension (05/14/25) Paroxysmal atrial fibrillation (05/14/25) Pneumonitis due to inhalation of food and vomit (05/14/25) Gout, unspecified (05/14/25) Acute kidney failure, unspecified (05/14/25) Benign prostatic hyperplasia with lower urinary tract symptoms (05/14/25) Nocturia (05/14/25) Past Medical History (Last Updated 09/30/24 @ 17:21 by Koko Urban MD) Paroxysmal atrial fibrillation with rapid ventricular response (Medical) Schizophrenia in full remission with history of multiple episodes (Medical) Speech-Language Pathology Swallow Evaluation CLINICAL DATA ABSTRACTOR Clinical Swallow Evaluation Start: 05/16/25 12:49 Freq: Status: Active Protocol: Document 05/16/25 12:50 SS (Rec: 05/16/25 13:19 SS Desktop) Clinical Swallow Evaluation Session Time Visit Start Time 12:25 Visit Stop Time 12:50 Total Visit Minutes 25 Visit Information Visit Number [address] Patel Magaña MD Reason for Referral Suspected aspiration Setting Assessment Location Acute Care Visit Type Note Type Initial evaluation Next Note Type Next Note Type Treatment Note Patient Information Identification Type Name,Date of History Per H&P: 79-year-old male with PAF, HTN, T2DM, developmental delay. Brought in by ambulance from residence ([facility]) due to coughing fits at dinner last night with concerns/suspicion for aspiration. Limited history as patient is unaccompanied and only able to give simple yes/no answers. Denies significant pain, difficulty breathing, nausea, headache, fever. Labs notable for WBC 7.5 w/left shift, hgb 7.9, MCV 83. 9, sodium 125, BUN 27, creatinine 1.6, GFR 44, glucose 121, procalcitonin 0.240; remainder of CBC, CMP without significant derangements. CXR shows right mid lung and left lower lobe opacification consistent with pneumonia or aspiration. CC chest demonstrates infiltrates within dependent portions of lungs right > left. CT head notable for subacute to chronic right occipital infarct which is new from previous exam on , otherwise advanced atrophy and chronic ischemic change without acute hemorrhage or mass effect. Per chest x-ray results: Lungs are abnormal with moderate right midlung and left lower lobe alveolar opacification consistent with pneumonia or aspiration. No pleural effusions or pneumothorax. Pt was previously seen for a clinical swallowing evaluation on 08/10/24 and demonstrated mildly impaired oral phase and moderately impaired pharyngeal phase of swallowing, c/b immediate coughing reflex with wet cough following sequential sips of thin liquid via straw. Thin liquids (no straws) and puree solids were recommended. Pt discharged before MBS could be completed. Clinical swallowing evaluation completed to assess swallowing function, assess aspiration risk, and determine need for further instrumental assessment. Subjective Chart reviewed and RN consulted. Pt as been NPO since Observations admission. RN reported swallow screen was completed this am with no overt s/sx of aspiration observed across thin liquids and puree, though immediate strong cough following regular solids. Pt asleep upon CLINICAL DATA ABSTRACTOR arrival, though woke up to name. He was minimally oriented and confused. Speech minimally intelligible to CLINICAL DATA ABSTRACTOR. Unable to provide case history. Unclear if this is a change from baseline or related to developmental delay. Per prior admission notes, pt reported his baseline diet is puree and thin liquids and he would not like this changed. Reported by Patient/Caregiver Other Symptoms Choking,Coughing,Difficulty swallowing liquids, Difficulty swallowing solids,History of aspiration or pneumonia Current Diet NPO The IDDSI Framework Protocol: IDDSI.1 Objective Assessment Mental Status Cooperative,Confused,Lethargic Oral Integrity Xerostomia/Dry mouth Dentition Missing teeth,Decay,Inadequate dentition for mastication Lip Function Mild impairment Tongue Function Mild impairment Jaw Function Mild impairment Hard/Soft Palate Mild impairment Function Respiratory Mild impairment Sufficiency Comment Pt on 2L via NC when awake, 6L when asleep, per RN report. No upper teeth and sparse lower teeth. Poor oral care with while buildup on tongue. Xerostomia observed, potentially 2/2 to NPO status and breathing through mouth when asleep. Mild weakness and reduced ROM with all jaw, lingual, and labial movements. Overall low muscle tone, likely related to developmental delay. Food and Liquid Trials Position During Upright (90 degrees) Assessment Liquids Trialed Ice chips,Thin (IDDSI 0) Administration Type Tea spoon,Cup single sip Oral Impairment Moderately impaired Oral Phase Comments Unable to fully assess as trials included thin liquids only. Pt exhibited adequate bolus retrieval from tsp and cup. Pt exhibited mild anterior loss of liquids d/t difficulty with oral containment given labial weakness . Unable to assess bolus manipulation and oral clearance with thin liquids. Pharyngeal Severely impaired Impairment Pharyngeal Phase Clinical signs/symptoms of possible pharyngeal Comments dysphagia include immediate coughing of thin liquids ( increasingly with cup sips). No immediate coughing with ice chips or thin liquids via tsp, though unable to rule out silent aspiration without instrumental swallow study. Immediate post-swallow coughing on 1 out of 2 sips via cup with pt turning bright red. He was able to respond to CLINICAL DATA ABSTRACTOR cueing to produce a strong cough with some of the liquid expectorated. Trials immediately discontinued due to high aspiration risk. Inconsistent audible swallows with wet vocal quality. Unable to rule out globus sensation given pt cognitive status and potential changes to sensation. [place] Swallow No Protocol Results The [place] Swallow Protocol is an evidence-based swallow screening protocol to determine aspiration risk. This tool has been validated across a number of different patient diagnoses and in a number of clinical settings. This is the only screening instrument that both identifies aspiration risk and, when passed, is able to recommend specific oral diets without the need for further instrumental dysphagia testing. Based upon research by Drs. Fadi Gregory and Carisa Zaldivar, this is a reliable and validated swallow screening protocol. Results with 3oz water test: COULD NOT ADMINISTER GIVEN CONSISTENT COUGHING WITH SIPS OF THIN - deemed unsafe The IDDSI Framework Protocol: IDDSI.1 Findings Swallowing Function Oropharyngeal phase dysphagia Severity of Swallow Severely impaired Impairment Contributing Factors Reduced alertness or attention,Difficulty following to Swallow directions,Reduced oral strength/coordination/sensation Impairment ,Mastication inefficiency,Impaired oral-pharyngeal transport,Delayed swallow initiation,Reduced laryngeal excursion,Impaired airway protection,Excessive pharyngeal residue Prognosis Guarded Based on Cognitive status,Duration of symptoms/severity Comment Currently, pt presents with indications of oropharyngeal dysphagia and aspiration risk is judged to be high. Oral phase is characterized by loss of liquids and appeared disorganized. Pharyngeal phase cannot be assessed objectively at bedside though subjectively appeared effortful and pt required 2-3 swallows at times. Pt demonstrated inconsistent s/sx of aspiration with thin liquids given immediate coughing, primarily with thin liquids via cup (not ice chips or thin liquid via tsp). Cough strength is judged to be weak increasing aspiration related complications. Pt does not appear safe for a PO diet at this time. Do not recommend ice chip or free water protocol at this time given pt's cognitive status and concern for silent aspiration. Recommend oral care TID to minimize colonization of oral pathogens that can increase pt's risk of developing aspiration pneumonia if aspirated. Recommend completion of Modified Barium Swallow Study (MBSS), to visualize and assess swallow function and anatomy, objectively determine aspiration risk, make appropriate and updated diet and treatment recommendations, as well as to identify need for additional referrals. Impact on Safety and Risk for aspiration,Risk for inadequate nutrition/ Functioning hydration Recommendations Instrumental Yes Assessment Swallowing Treatment Yes Frequency 5x/week Duration During admission Recommended Solids NPO Medication Not Recommended by Mouth Recommendations Discharge assisted facility,[facility] sales advertising executive care facility Recommendations Referrals Recommended Dietary Referrals Education Patient/Caregiver Described results of evaluation Education Goals Short-term Goals Patient will complete MBSS to further evaluate swallowing pathophysiology and determine next steps in POC. Long-term Goals Patient will safely tolerate least restrictive diet consistency to allow for safe consumption of daily meals without s/sx of aspiration.
[2025-05-16] MEDS: POTASSIUM CHLORIDE IN WATER 10 MEQ/100 ML PIGGYBACK 100 MEQ IV ×4 (14:07→18:48)
[2025-05-17] VITALS (7 sets, daily range): BP systolic 157–178; BP diastolic 75–97; PULSE 97–101; RESP 14–22; TEMP 36.2–36.5; O2SAT 96–100
[2025-05-17] MEDS: AMPICILLIN/SULBACTAM 3 GM 3 GM in SODIUM CHLORIDE 0.9% 100 ML IV ×4 (04:28→22:05)
[2025-05-17 06:04] LABS: Add Manual Diff / Slide Review NO; Hematocrit 27.2 % (41-53); Hemoglobin 8.8 g/dL (13.5-17.5); Lymphocytes Absolute Auto 1000 /uL (1100-4500); Mean Corpuscular HGB Conc 32.6 % (30-36); Mean Corpuscular Hemoglobin 28.0 PG (26-34); Mean Corpuscular Volume 85.9 fL (80-100); Platelet Count 172 X10^3/uL (150-400)
[2025-05-17] MEDS: DEXTROSE 5%-0.9% NS 1,000 ML 100 ML IV ×2 (06:20→19:43)
[2025-05-17 06:21] LABS: Alanine Aminotransferase 16 IU/L (<50); Albumin 3.2 g/dL (3.5-5.0); Albumin Globulin Ratio 0.8 (1.0-2.8); Alkaline Phosphatase 56 U/L (38-126); Blood Urea Nitrogen 8 mg/dL (9-20); Calcium 9.4 mg/dL (8.4-10.2); Carbon Dioxide 29 mmol/L (22-32); Chloride 111 mmol/L (98-107); Estimated Glomerular Filt Rate > 60 mL/min (>60); Globulin 4.1 g/dL (1.7-4.1); Glucose 147 mg/dL (70-99); HEMOLYSIS < 15 (0-50); Potassium 3.4 mmol/L (3.4-5.1); Sodium 147 mmol/L (137-145); Total Protein 7.3 g/dL (6.3-8.2)
--- NOTE | 2025-05-17 07:36 | PM.PN.IH.1 ---
Subjective Subjective Date Patient Seen: 05/17/25 Time Patient Seen: 07:38 Interval history: 79-year-old male known to me from previous admission in July when I help manage his care in the hospital for Dr. Urban Admitted on the - with recurrent aspiration pneumonia. That previous admission was also for aspiration pneumonia, was quite ill at that time requiring intubation etcetera. Does not appear to be anywhere near that sick at this time. Remains on low-level oxygen replacement therapy at 2 L nasal cannula with O2 saturation 98% Patient with a leukocytosis that has subsequently resolved on parental antibiotic therapy Patient has remained afebrile Was seen by speech therapy yesterday who felt like he was very very high risk for recurrent aspiration. Recommended modified barium swallow Also was found to be quite anemic upon admission, oral anticoagulant has been stopped. No obvious source of bleeding. Received blood transfusion with improvement on blood counts this morning. This morning patient continues on 2 L nasal cannula, vocalizes but nothing understandable. Not clear whether or not he recognizes me from July probably not he was super ill at that time Exam Vital Signs (past 8 hours): - 05/17/25 04:00 Temperature 97.2 F L Pulse Rate 100 H Respiratory Rate 20 Blood Pressure 161/86 H Pulse Oximetry 98 Oxygen Flow Rate 2 Fraction of Inspired Oxygen 32 SaO2/FiO2 Ratio 287 Oxygen Delivery Method Nasal Cannula Oxygen Flow Rate 2 Objective Labs 05/17/25 05:45 05/17/25 05:45 Labs: Laboratory Results - last 24 hr 05/16/25 05/16/25 05/16/25 08:03 10:58 11:09 WBC 7.3 RBC 2.74 L Hgb 7.9 L Hct 23.5 L MCV 85.6 MCH 28.9 MCHC 33.8 RDW 15.9 H Plt Count 154 Neut % (Auto) 62.7 Lymph % (Auto) 27.2 Harris % (Auto) 7.5 Eos % (Auto) 2.1 Baso % (Auto) 0.5 Neut # (Auto) 4600 Lymph # (Auto) 2000 Harris # (Auto) 500 Eos # (Auto) 200 Baso # (Auto) 0 Sodium 143 D Potassium 3.2 L Chloride 108 H Carbon Dioxide 29 BUN 12 Creatinine 1.22 Estimated GFR > 60 BUN/Creatinine Ratio 9.8 Glucose 100 H POC Whole Bld Glucose 90 104 H Calcium 9.1 Total Bilirubin 0.3 AST 23 ALT 17 Alkaline Phosphatase 53 Total Protein 6.9 Albumin 3.0 L Globulin 3.9 Albumin/Globulin Ratio 0.8 L 05/16/25 05/16/25 05/17/25 16:53 20:42 05:45 WBC 5.3 RBC 3.16 L Hgb 8.8 L Hct 27.2 L MCV 85.9 MCH 28.0 MCHC 32.6 RDW 16.3 H Plt Count 172 Neut % (Auto) 68.4 Lymph % (Auto) 19.5 L Harris % (Auto) 9.5 Eos % (Auto) 1.9 L Baso % (Auto) 0.7 Neut # (Auto) 3600 Lymph # (Auto) 1000 L Harris # (Auto) 500 Eos # (Auto) 100 Baso # (Auto) 0 Sodium 147 H Potassium 3.4 Chloride 111 H Carbon Dioxide 29 BUN 8 L Creatinine 1.15 Estimated GFR > 60 BUN/Creatinine Ratio 7.0 Glucose 147 H POC Whole Bld Glucose 92 100 H Calcium 9.4 Total Bilirubin 0.3 AST 20 ALT 16 Alkaline Phosphatase 56 Total Protein 7.3 Albumin 3.2 L Globulin 4.1 Albumin/Globulin Ratio 0.8 L PFSH Medical History (Updated 05/14/25 @ 20:11 by Koko Urban MD) Schizophrenia in full remission with history of multiple episodes Paroxysmal atrial fibrillation with rapid ventricular response Surgical History Anesthesia Status post hernia repair (~2005) Status post appendectomy Family History Father History of heart disease Stroke Mother History of heart disease Stroke Grandfather History of heart disease Grandmother Stroke Grandfather History of heart disease Grandmother Cancer Social History household members: spouse Smoking Status: Smoker, status unknown alcohol intake: never Assessment & Plan Assessment & Plan narrative: 1. Aspiration pneumonia-continue with current parental antibiotics. Patient appears to be slowly improving 2. Swallow-set up for a modified barium swallow today. Continue to hope that patient's strength and ability to swallow will improve as he recovers from his pneumonia, but given that he is not as ill with this aspiration pneumonia as he was back earlier in the year that maybe less likely. Perhaps his new found CVA diagnosed upon admission is spelled least partially responsible. May need an alternative for nutrition and hydration such as enteral feeding tube etcetera. Defer discussion about this till after his barium swallow and probably allow PCP to discuss long-term options. I strongly suspect patient is not going to be able to support himself nutritionally orally and decisions regarding feeding tube we will need to be made prior to discharge from the hospital, but will await the MBS study and speech therapy input. 3. Anemia-numbers improved after transfusion. Should remain off of anticoagulation for now. If indeed patient does require gastric feeding tube could evaluate for potential upper GI source of bleeding on upper endoscopy. Does need ongoing stool testing for occult blood. Continue to monitor his hemoglobin hematocrit for now. Patient hemodynamically stable and no evidence of large volume bleeding, fortunately. 4. Acute kidney injury-resolved. Numbers are normal 5. Hyponatremia-patient now somewhat hypernatremic. Continue to follow, consider switching IV fluids if sodium continues to climb on test tomorrow (at 147 this morning) 6. Diabetes-excellent blood sugar control for now no issues, continue with some source of IV dextrose given he continues NPO 7. Paroxysmal atrial fibrillation-continues on sinus rhythm on monitor. Continue off anticoagulation as above 8. Disposition-likely to returned to long-term care at [facility] went above issues have been resolved or dealt with Time-Based Coding :: [TOTAL MINUTES] spent with patient and on the chart (including review of chart, obtaining history, exam, reviewing outside data, placing orders, documenting exam and treatment plan, and counseling patient) on [DATE]. [employer] Professional Document charge(s): Yes Charge Codes Subsequent inpatient/observation care: [id number]
--- NOTE | 2025-05-17 10:35 | SLP.IPNOTE ---
Addendum entered and electronically signed by Zenobia Butler 05/17/25 12:06: Session attempted, however unable to arouse pt with verbal and tactile stimulation. Pt not appropriate for MBSS at this time. Continue NPO status with TID oral care. Spoke with egg caser re: having goals of care conversation given ongoing NPO status and no alternative means of nutrition (liquid IV in place). Pt would benefit from dietary services. DATA PROCESSING SPECIALIST to follow-up tomorrow for appropriateness of MBSS. Original Note: MBSS scheduled today at 13:00 tentatively. DATA PROCESSING SPECIALIST called RN to confirm. However, pt is having increased difficulty with breathing today and may not be appropriate. MBSS booked, though may be canceled depending on medical status.
[2025-05-17] MEDS: POTASSIUM CHLORIDE IN WATER 10 MEQ/100 ML PIGGYBACK 100 MEQ IV ×2 (10:53→12:09)
--- NOTE | 2025-05-17 13:59 | CM.DPNOTE ---
DCP note per RN/speech, less alert today. per speech not appropriate for MBSS. per speech, rec provider have a goals of care conversation with the decision maker. CLOTH EXAMINER MACHINE updated Laura at . they are cleared to take him back for LTC when appropriate P: Medical POC pending, CM team will continue to follow closely for DCP Coordination SANTOSH Delgadillo
--- NOTE | 2025-05-17 16:59 | PM.EVENT ---
Event Note Date Patient Seen: 05/17/25 Time Patient Seen: 13:55 Event Note (Rapid Response, Code, or fall): Patient this morning was noted to have decreased alertness and responsiveness. O2 saturations were on the lower side so he was switched from nasal cannula to a simple mask and with that his O2 saturations came up significantly into the 99 range on 2 L Mental status seem improved with improving oxygenation Had a long discussion with patient's brother as I am still unable to hold any coherent or cognitive conversation with patient I discussed with brother the fact that at the current time patient is NPO and felt to be super high risk for repeat aspiration which is why he is here for his aspiration pneumonia. He was going to have a barium swallow test done today which he is not alert or awake enough to do the certainly would fail it at this point and would be high risk even try and do that Discussed that if he can not safely swallow on his own or we can find some way to improve swallowing function (which is why the barium swallow is important) he may well need a feeding tube for nutrition and hydration Brother reports that his brother the patient has always been the primary decision maker and he has deferred decision such as this to him. He did elect to be full code re-intubation if necessary even after he was intubated with his aspiration pneumonia back in July of this year Unfortunately patient can not participate in this discussion at this time hopefully with above measures and continue antibiotic therapy he will be able to participate in further discussion over time. Also informed patient's brother that his borther's PCP, Dr. Urban, will be back to see him in the morning I also informed the brother that third appear to be a subacute stroke noted on his CT scan at time of admission which he was unaware of. This was in the right occipital area which I would think would be more related to vision unless likely related to issues with the swallow brainstem etcetera. However this CVA is happened sometime since he had a scan done in July around his previous admission do not know if it is acute subacute or more chronic at this time. Given its location does not seem likely to be contributing to his dysphagia, in my opinion. However he may have difficulty with left-sided vision and would suggest approaching patient from the right side consistently
[2025-05-17] MEDS: METOPROLOL TARTRATE 5 MG/5 ML INJ IV (22:04)
[2025-05-18] VITALS (10 sets, daily range): BP systolic 145–190; BP diastolic 54–99; PULSE 73–89; RESP 16–20; TEMP 36.1–36.7; O2SAT 97–100
[2025-05-18] MEDS: METOPROLOL TARTRATE 5 MG/5 ML INJ IV ×3 (03:05→16:42)
[2025-05-18] MEDS: AMPICILLIN/SULBACTAM 3 GM 3 GM in SODIUM CHLORIDE 0.9% 100 ML IV ×4 (03:17→22:35)
[2025-05-18] MEDS: NITROGLYCERIN OINT 1 INCH/GM OINT...G. 0.5 INCH TOP ×3 (06:50→18:04)
[2025-05-18 06:59] LABS: Add Manual Diff / Slide Review NO; Hematocrit 27.9 % (41-53); Hemoglobin 9.2 g/dL (13.5-17.5); Lymphocytes Absolute Auto 1400 /uL (1100-4500); Mean Corpuscular HGB Conc 32.9 % (30-36); Mean Corpuscular Hemoglobin 28.4 PG (26-34); Mean Corpuscular Volume 86.1 fL (80-100); Platelet Count 179 X10^3/uL (150-400)
[2025-05-18 07:14] LABS: Blood Urea Nitrogen 6 mg/dL (9-20); Calcium 9.5 mg/dL (8.4-10.2); Carbon Dioxide 30 mmol/L (22-32); Chloride 110 mmol/L (98-107); Estimated Glomerular Filt Rate > 60 mL/min (>60); Glucose 132 mg/dL (70-99); HEMOLYSIS < 15 (0-50); Potassium 3.2 mmol/L (3.4-5.1); Sodium 148 mmol/L (137-145)
[2025-05-18] MEDS: DEXTROSE 5%-0.9% NS 1,000 ML 100 ML IV (07:48)
[2025-05-18] MEDS: INSULIN LISPRO 100 UNIT/ML 3ML VIAL SUBCUT (08:03)
--- NOTE | 2025-05-18 08:08 | PM.PN.IH.1 ---
Subjective Subjective Date Patient Seen: 05/18/25 Interval history: Awake and alert in bed today. Oriented to self, place, and year but does not know why he is in the hospital. Reports that he did not have any difficulty gagging/choking during MBSS this morning despite objectively having moderate oral phase dysphagia and severe pharyngeal phase dysphagia with thin and thickened liquids. Exam Vital Signs (past 8 hours): - 05/18/25 00:20 05/18/25 03:02 05/18/25 03:17 Temperature 97.5 F L Pulse Rate 88 73 Respiratory Rate 18 Blood Pressure 190/96 H 176/85 H Pulse Oximetry 98 97 Oxygen Flow Rate 1 3 05/18/25 06:50 05/18/25 07:46 Temperature 98.0 F 96.9 F L Pulse Rate 83 82 Respiratory Rate 16 Blood Pressure 173/92 H 172/99 H Pulse Oximetry 100 Oxygen Flow Rate 3 Fraction of Inspired Oxygen 36 SaO2/FiO2 Ratio 272 Oxygen Delivery Method Oximask Oxygen Flow Rate 3 Narrative Exam Narrative: General: Pleasant, NAD HEENT: NC/AT, EOMI, edentulous, moist membranes CV: RRR, normal S1-S2 Resp: CWOB Ext: No edema Skin: No rash or lesions noted Neuro: Awake, alert, decreased cognition at baseline, moves all extremities, gives yes/no answer to most questions Objective Labs 05/18/25 05:50 05/18/25 05:50 Labs: Laboratory Results - last 24 hr 05/17/25 05/17/25 05/17/25 12:11 17:19 19:34 WBC RBC Hgb Hct MCV MCH MCHC RDW Plt Count Neut % (Auto) Lymph % (Auto) [place] % (Auto) Eos % (Auto) Baso % (Auto) Neut # (Auto) Lymph # (Auto) [place] # (Auto) Eos # (Auto) Baso # (Auto) Sodium Potassium Chloride Carbon Dioxide BUN Creatinine Estimated GFR BUN/Creatinine Ratio Glucose POC Whole Bld Glucose 100 H 120 H 121 H Calcium 05/18/25 05/18/25 01:30 05:50 WBC 5.5 RBC 3.24 L Hgb 9.2 L Hct 27.9 L MCV 86.1 MCH 28.4 MCHC 32.9 RDW 15.7 H Plt Count 179 Neut % (Auto) 63.3 Lymph % (Auto) 24.5 L [place] % (Auto) 9.5 Eos % (Auto) 2.0 Baso % (Auto) 0.7 Neut # (Auto) 3500 Lymph # (Auto) 1400 [place] # (Auto) 500 Eos # (Auto) 100 Baso # (Auto) 0 Sodium 148 H Potassium 3.2 L Chloride 110 H Carbon Dioxide 30 BUN 6 L Creatinine 1.01 Estimated GFR > 60 BUN/Creatinine Ratio 5.9 L Glucose 132 H POC Whole Bld Glucose 126 H Calcium 9.5 PFSH Medical History (Updated 05/18/25 @ 13:30 by Koko Urban MD) Paroxysmal atrial fibrillation with rapid ventricular response Schizophrenia in full remission with history of multiple episodes Surgical History Anesthesia Status post hernia repair (~2005) Status post appendectomy Family History Father History of heart disease Stroke Mother History of heart disease Stroke Grandfather History of heart disease Grandmother Stroke Grandfather History of heart disease Grandmother Cancer Social History household members: spouse Smoking Status: Smoker, status unknown alcohol intake: never Assessment & Plan Assessment and plan (1) Aspiration pneumonia: Qualifiers: Aspiration pneumonia type: unspecified Laterality: bilateral Lung location: lower lobe of lung Qualified Code(s): J69.0 - Pneumonitis due to inhalation of food and vomit Status: Acute (2) At high risk for aspiration: Status: Acute (3) Occipital cerebral infarction: Status: Acute (4) Anemia: Qualifiers: Anemia type: unspecified type Qualified Code(s): D64.9 - Anemia, unspecified Status: Acute (5) Paroxysmal atrial fibrillation: Status: Chronic (6) Essential hypertension: Status: Chronic (7) Hyponatremia: Status: Acute (8) JANIE (acute kidney injury): Status: Acute (9) Type 2 diabetes, diet controlled: Problem details: 07/10/2023: A1 6.4% (previous 6.2% 03/19/2022) Status: Acute (10) Developmental disorder of scholastic skills, unspecified: Status: Chronic (11) Benign prostatic hyperplasia with lower urinary tract symptoms: Qualifiers: Lower urinary tract symptom detail: nocturia Qualified Code(s): N40.1 - Benign prostatic hyperplasia with lower urinary tract symptoms; R35.1 - Nocturia Status: Chronic (12) Gout, arthritis: Status: Chronic Assessment & Plan narrative: 79-year-old male with PAF, HTN, T2DM, developmental delay admitted for aspiration pneumonia in context of recent choking event. #aspiration PNA Witnessed choking episodes during dinner night before admission, imaging consistent with bilateral aspiration pneumonia. Leukocytosis now resolved. - Unasyn 3g q6h (05/14-05/19), s/p ceftriaxone + Flagyl in ER (05/14) #high aspiration risk And BSS today revealed moderate oral phase dysphagia and severe pharyngeal phase dysphagia with impact to both swallowing efficiency and safety. Consistent aspiration of thin liquids, nectar thick liquids, puree, and residual material remained in airway. All trialed strategies were not effective in eliminating aspiration, reducing depth of penetration, or reducing pharyngeal residue. Based on MBSS results, pt does not appear safe for a PO diet at this time and is at a high aspiration risk. Now going on 4 days NPO, will need enteral feeding as alternative for fluids and particularly calories if treatment preferences remain consistent. Situation complicated by pt's apparent lack of understanding regarding state of his health, safety concerns, and r/b/a of intervening vs doing nothing. Goals of care discussion will be reattempted with brother and hopefully ST present in order to optimally present this information to him. I do have concerns about his overall capacity and will obtain a SLUMs for further evaluation of cognitive function. #new subacute/chronic R occipital lobe infarct Noted on intake imaging outside any window to treat - already a shelter resident at [facility]. May be contributing factor but location affected more c/w vision rather than swallowing. #anemia normocytic acute on chronic Chronic issue but significant drop compared to prior levels. Potential occult bleed given use of blood thinner so holding Eliquis for now. He did get 1 unit blood the night of admission. Iron low normal, if continues to drop may need colonoscopy. Could consider EGD if ultimately decides on G-tube. -ctm, replete prn -stool guaiac pending #PAF #hypertension Currently in sinus rhythm on monitor with active bleed of some kind -hold Eliquis for now -continue metoprolol IV q6h prn sbp > 160 #hyperatremia Original hyponatremia likely due to urinary losses with inadequate replacement, now overcorrected -switch to D5 1/2 NS #JANIE Resolved. -s/p 1 L LR bolus in ER -mIVF @100cc/hr -avoid nephrotoxic meds resume diet when cleared #diabetes Diet-controlled -continue sensitive SSI #developmental disorder home quetiapine 150 mg q.a.m., 100 mg midday, 150 mg q.h.s. home depakote 275 mg b.i.d. home trazodone 50 mg q.h.s. #BPH #gout -holding home tamsulosin, allopurinol 2/ npo status Dispo: Likely back to long-term care at [facility] Time-Based Coding :: 50 minutes spent with patient and on the chart (including review of chart, obtaining history, exam, reviewing outside data, placing orders, documenting exam and treatment plan, and counseling patient) on 05/18/2025. PROFEE Photo Producer Document charge(s): Yes Charge Codes Subsequent inpatient/observation care: [id number]
[2025-05-18] MEDS: POTASSIUM CHLORIDE IN WATER 10 MEQ/100 ML PIGGYBACK 100 MEQ IV ×4 (11:46→16:36)
--- NOTE | 2025-05-18 12:03 | ST.SWALLOW ---
Visit Care Team Role Provider Type Patel Magaña MD Other Providers Physician Specialty: Family Practice Address: [address] [place], [address] Email: [email or web address] Evelyn Johnson MD Emergency Provider Physician Referring Provider Specialty: Emergency Medicine Address: [address] [place] [address], [id number] Fax: Email: [email or web address] Koko Urban MD Admit Provider Physician Attending Provider Other Providers Primary Care Provider Specialty: Family Practice Obstetrics Address: [address] [place], [address] Email: [email or web address] Modified Barium Swallow Study SENIOR CATEGORY MANAGER Modified Barium Swallow Study Start: 05/18/25 10:55 Freq: Status: Active Protocol: Document 05/18/25 10:55 SS (Rec: 05/18/25 11:50 SS [email or web address]) Modified Barium Swallow Study Total Time Visit Start Time 10:00 Visit Stop Time 10:50 Total Visit Minutes 50 Visit Information Visit Number [address] Patel Magaña MD Reason for Referral Suspected aspiration Setting Setting Acute Care Patient Information Identification Type Name,Date of Patient History Per H&P: 79-year-old male with PAF, HTN, T2DM, developmental delay. Brought in by ambulance from residence ([facility]) due to coughing fits at dinner last night with concerns/suspicion for aspiration. Limited history as patient is unaccompanied and only able to give simple yes/no answers. Denies significant pain, difficulty breathing, nausea, headache, fever. Labs notable for WBC 7.5 w/left shift, hgb 7.9, MCV 83. 9, sodium 125, BUN 27, creatinine 1.6, GFR 44, glucose 121, procalcitonin 0.240; remainder of CBC, CMP without significant derangements. CXR shows right mid lung and left lower lobe opacification consistent with pneumonia or aspiration. CC chest demonstrates infiltrates within dependent portions of lungs right > left. CT head notable for subacute to chronic right occipital infarct which is new from previous exam on , otherwise advanced atrophy and chronic ischemic change without acute hemorrhage or mass effect. Per chest x-ray results: Lungs are abnormal with moderate right midlung and left lower lobe alveolar opacification consistent with pneumonia or aspiration. No pleural effusions or pneumothorax. Pt was previously seen for a clinical swallowing evaluation on 08/10/24 and demonstrated mildly impaired oral phase and moderately impaired pharyngeal phase of swallowing, c/b immediate coughing reflex with wet cough following sequential sips of thin liquid via straw. Thin liquids (no straws) and puree solids were recommended. Pt discharged before MBS could be completed. Clinical swallowing evaluation completed to assess swallowing function, assess aspiration risk, and determine need for further instrumental assessment on 05/16 by this SENIOR CATEGORY MANAGER. Pt presented with indications of oropharyngeal dysphagia and aspiration risk is judged to be high. SENIOR CATEGORY MANAGER had recommended continuation of NPO status. MBSS was attempted on 05/08, though pt minimally awake/alert and MBSS was re-scheduled to (today). Dr. Rg Jordan MD, had a conversation with pt's brother, who is his POA, prior to MBSS re: goals of care. Per note, discussed that if he can not safely swallow on his own or we can find some way to improve swallowing function (which is why the barium swallow is important) he may well need a feeding tube for nutrition and hydration. Modified Barium Swallow Study (MBSS) completed to visualize and assess swallow function and anatomy, determine aspiration risk, make appropriate and updated diet and treatment recommendations, as well as to identify need for additional referrals. O2 saturations in 100 range on 2 L via NC this am per RT note. Subjective Pt was more alert today, though cognition continues to Observations be judged as reduced from baseline. Pt able to respond to simple egocentric questions and follow simple 1-step directions, though easily confused by more complex questions/information. Oral motor evaluation reveals missing dentition, lingual/labial weakness and dry mucosa, and reduced volume (almost aphonic). Pt coughed large amount of mucous prior to initiation of PO trials. Oral care completed given dry mucosa and build up on mucous in oral cavity. Pt was able to confirm that he ate purees at baseline, though is uncertain about liquid viscosity or pills. Patient Positioning Position View Lateral Imaging Lateral View Textures Administered Trials Presented Thin Liquid via Spoon (IDDSI 0),Mildly Thick Liquid via Spoon (IDDSI 2),Moderately Thick Liquid via Spoon ( IDDSI 3),Puree (IDDSI 4) Barium Tablet No The IDDSI Framework Protocol: IDDSI.1 Oral Impairment Source: The Modified Barium Swallow Impairment Profile (MBSImP??) Lip Closure Escape progressing to mid-chin Tongue Control Escape to lateral buccal cavity/floor of mouth (FOM) During Bolus Hold Bolus Transport/ Slowed tongue motion Lingual Motion Oral Residue Residue collection on oral structures Location Floor of mouth,Palate,Tongue,Lateral sulci Initiation of Bolus head at pyriforms Pharyngeal Swallow Additional Oral Moderate Impairment. Oral acceptance of bolus was WFL. Impairment Patient demonstrated reduced labial seal with small Observations amounts of the liquids escaping toward mid-chin. Bolus formation was disorganized and inefficient. Anterior- posterior transit of the bolus was sluggish/slowed. Unable to assess mastication as trials were discontinued following puree due to safety concerns. There were moderate amounts of oral residue, with both liquids and puree, requiring multiple attempts at AP transit to propel posteriorly, though residue remained. Pharyngeal Impairment Source: The Modified Barium Swallow Impairment Profile (MBSImP??) Soft Palate No bolus between soft palate & pharyngeal wall Elevation Laryngeal Elevation Part.sup.move.thyroid cart/part.approx.arytenoids to epiglot.petiole Anterior Hyoid Partial anterior movement Excursion Epiglottic Movement Partial inversion Laryngeal Vestibular Incomplete; narrow column air/contrast in laryngeal Closure vestibule Pharyngeal Stripping Present - diminished Wave Pharyngoesophageal Partial distention/partial duration; partial Segment Opening obstruction of flow Tongue Base Narrow column of contrast/air betwn tongue base & post. Retraction pharyngeal wall Pharyngeal Residue Majority of contrast within/on pharyngeal structures Location Diffuse (>3 areas) Additional Severe Impairment. Swallow was initiated with liquids Pharyngeal at the pyriform sinuses. Swallow was initiated with Impairment solids at the posterior laryngeal surface of the Observations epiglottis. Velopharyngeal closure was WFL. Hyoid/ laryngeal elevation was judged to be reduced. The epiglottis did invert; inversion is characterized as incomplete and sluggish. Tongue base retraction was reduced. Pharyngeal stripping wave was significantly reduced. Cricopharyngeal opening appeared inadequate and appeared to impede bolus flow into the esophagus, though this is difficult to definitively discern given severity of pharyngeal stripping impairment. Post- swallow residue was severe, primarily at the base of tongue, posterior pharyngeal wall, valleculae and pyriform sinuses with both liquids and puree. Pt did not sensate to residue and required verbal cueing to use multiple dry swallows (4+), though moderate residue remained after attempts. Penetration / Aspiration: Aspiration occurred during the swallow with thin liquids via tsp, nectar thick liquids via tsp, and puree via tsp. Pt did not sense aspiration across. A cued cough was effective in moving aspirated material upward toward vocal folds, though pt unable to produce a cough strong enough to clear aspirated material from the airway. Deep penetration occurred during the swallow with honey thick liquids via tsp. Penetration did reach the level of the vocal folds. Throat clearing and a cued cough were not effective in clearing the penetrated material. While no aspirated occurred with honey thick liquids, pt is likely aspirated the material when his vocal folds opened to inhale. Aspiration and deep penetration are secondary to delayed initiation of the swallow, severity of pharyngeal residue, and delayed and incomplete laryngeal vestibular closure. Penetration / Aspiration Scale (PAS): Thin: 8 Material enters the airway, passes below the vocal folds, and NO effort is made to eject the material (visible subglottic residue) [place] / Mildly Thick: 8 Material enters the airway, passes below the vocal folds, and NO effort is made to eject the material (visible subglottic residue) Honey / Moderately Thick: Material enters the airway, contacts the vocal folds and is NOT ejected from the airway, (visible residue remains) Pudding / Semi-solid: 8 Material enters the airway, passes below the vocal folds, and NO effort is made to eject the material (visible subglottic residue) Compensatory Strategies: The following compensatory strategies were trialed with the following results: - chin tuck: did not eliminate aspiration or reduce depth of penetration consistently; did not appear to significantly reduce pharyngeal residue - repeat swallow: some material was cleared, though moderate amount remained, at times entering the laryngeal vestibule and aspirated. - Oral hold (3 seconds) and hard and fast swallow: Somewhat improved the timing of the swallow. However, did not eliminate aspiration or reduce depth of penetration consistently; did not appear to significantly reduce pharyngeal residue - Controlled throat clearing and strong cued cough: did not clear aspirated material from the airway or penetrated material from the laryngeal vestibule. None of the strategies implemented successfully eliminated/reduced aspiration, depth of penetration, or pharyngeal residue. Chin tuck and repeat swallows intermittently resulted in aspiration of residual material that remained in the laryngeal vestibule. A/P View The IDDSI Framework Protocol: IDDSI.1 Clinical Impressions Dysphagia Type Oral,Pharyngeal Findings MBSS revealed moderate oral phase dysphagia and severe pharyngeal phase dysphagia with impact to both swallowing efficiency and safety. Oral phase was characterized by anterior loss of bolus, poor tongue control of bolus, and slowed bolus transport and lingual motion, resulting in large amount of oral residue. Pharyngeal phase was characterized by delayed swallow initiation, reduced laryngeal vestibule closure , incomplete epiglottic inversion, and reduced laryngeal elevation resulting in consistent aspiration of thin liquids, nectar-thick liquids, puree, and residual material remining in airway. Honey thick liquids contacted the vocal folds and were not ejected from airway. All trialed strategies were not effective in eliminating aspiration, reducing depth of penetration, or reducing pharyngeal residue. Overall, the pt?s swallow is significantly impacted by both efficiency and safety concerns. Based on MBSS results, pt does not appear safe for a PO diet at this time and is at a high aspiration risk. Pt may benefit from an ice chip protocol, small amounts of thin liquids via tsp (water only), and puree via tsp to promote oral hygiene and for pleasure. However, this is pending conversation with pt?s MD and pt?s brother, who is his POA, in order to discuss goals of care. Pt remains at a high risk of developing aspiration pneumonia given combination of known laryngeal aspiration, poor oral health, and compromised immune system/health status. If pt was to pursue small amounts of intake for pleasure/comfort given known high aspiration risk, recommend thorough oral care prior to all intake, 1:1 supervision, and use of safe swallowing strategies as below to ensure pt comfort and reduce risk of aspiration as much as possible. Precautions as follows: eat/drink only when fully alert and awake, thorough oral care before/after meals, remain in upright position without lying down or leaning back/ forward during meals, small, single sips and bites, control rate of food/liquid intake via tsp, no mixed textures. 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
--- NOTE | 2025-05-18 14:00 | OT.IP.EVAL ---
Current Diagnoses Anemia, unspecified (05/14/25) Type 2 diabetes mellitus without complications (05/14/25) Hypo-osmolality and hyponatremia (05/14/25) Insomnia due to other mental disorder (05/14/25) Developmental disorder of scholastic skills, unspecified (05/14/25) Mental disorder, not otherwise specified (05/14/25) Essential (primary) hypertension (05/14/25) Paroxysmal atrial fibrillation (05/14/25) Pneumonitis due to inhalation of food and vomit (05/14/25) Gout, unspecified (05/14/25) Acute kidney failure, unspecified (05/14/25) Benign prostatic hyperplasia with lower urinary tract symptoms (05/14/25) Nocturia (05/14/25) Past Medical History (Last Updated 09/30/24 @ 17:21 by Koko Urban MD) Paroxysmal atrial fibrillation with rapid ventricular response Schizophrenia in full remission with history of multiple episodes Surgical History (Last Reviewed 08/10/24 @ 08:07 by Rg Jordan MD) Anesthesia Status post appendectomy Status post hernia repair (~2005) Occupational Therapy Inpatient Evaluation/Re-Eval M1 OT IP Prior Functional Status Start: 05/18/25 14:14 Freq: Status: Active Protocol: Document 05/18/25 14:15 [facility] (Rec: 05/18/25 14:24 [facility] Desktop) Medical Review Prior Functional Status Mobility and Gait Pt states is bed bound at [facility]. Activities of Daily Pt states gets assist for most ADL needs. Living and IADL's Social History Household Members spouse Living Arrangements Skilled Nurse Facility Additional Social Per RN at [facility] was considering possibility of pt History Comment to be on Hospice the Wed prior to getting admitted to the hospital. Case management requesting SLUMS for pt. M2 OT-IP Current Condition Start: 05/18/25 14:14 Freq: Status: Active Protocol: Document 05/18/25 14:15 [facility] (Rec: 05/18/25 14:24 [facility] Desktop) Occupational Therapy Current Condition Current Condition Evaluation Date 05/18/25 Treatment Diagnosis Aspiration PNA Diagnosis Onset Date 05/14/25 M3 OT- IP Subjective and Pain Start: 05/18/25 14:14 Freq: Status: Active Protocol: Document 05/18/25 14:15 [facility] (Rec: 05/18/25 14:24 [facility] Desktop) OT- Subjective Occupational Therapy Visit Comments Patient Comments Pt agreed to do SLUMS. Pt states his brother is his decision maker medically. M9 OT- IP Assessment and Plan Start: 05/18/25 14:14 Freq: Status: Active Protocol: Document 05/18/25 14:15 [facility] (Rec: 05/18/25 14:24 [facility] Desktop) OT Summary Assessment and Plan Potential Rehabilitation Poor Potential Analytic Complexity High at Evaluation Summary Assessment Summary Pt scored 12/30 on the SLUMS, pt score implies dementia . Able to talk to pt's nurse at [facility] and states pt has short term and manager long term care memories issues prior to this hospitalization and the week prior considering having pt go on Hospice. Pt aware of name, place, state , and year. After some time, pt forget that he was in the hospital. Pt unaware of the month even after giving pt the hint that it is almost Thanksgiving. Pt not able to calculate 20+3 but states he still does his bills along with medications. Pt able to name 5 animals in one minute. Able to recall 2/5 objects after time passed, able to to state 3 ro 4 digit number backwards, able to identify the largest shape and able to write an x on the triangle. Pt able to answer 2/4 questions right after paragraph read. Pt's score implies dementia. Pt to go back to [facility] when medically stable, discharge pt from OT services. Frequency of Treatment Frequency Of Discharge Treatment
--- NOTE | 2025-05-18 16:06 | CM.DPNOTE ---
DCP note PRECISION ASSEMBLER reviewed EMR per speech, pt not able to swallow most things without aspirating. rec Comfort based care. per previous POLST, full code. per Dr. Urban, unsure if pt has capacity to understand medical decision making needs. next of kin/decision maker would be brother. per OT, SE 12. Dr. Urban to review with family and pt treatment vs CC options. PRECISION ASSEMBLER updated SV. P: CC vs pursue NG tube/treatment. pending pt/family preference. will continue to follow closely for DCP Coordination Gogo Lopez, SANTOSH
[2025-05-19] VITALS (8 sets, daily range): BP systolic 138–173; BP diastolic 63–91; PULSE 72–90; RESP 15–18; TEMP 36.1–36.8; O2SAT 95–99
[2025-05-19] MEDS: DEXTROSE 5%-0.9% NS 1,000 ML 100 ML IV (01:32)
[2025-05-19] MEDS: AMPICILLIN/SULBACTAM 3 GM 3 GM in SODIUM CHLORIDE 0.9% 100 ML IV ×3 (03:55→17:28)
[2025-05-19 05:12] LABS: Blood Urea Nitrogen 8 mg/dL (9-20); Calcium 9.8 mg/dL (8.4-10.2); Carbon Dioxide 30 mmol/L (22-32); Chloride 111 mmol/L (98-107); Estimated Glomerular Filt Rate > 60 mL/min (>60); Glucose 109 mg/dL (70-99); HEMOLYSIS < 15 (0-50); Magnesium 1.5 mg/dL (1.6-2.3); Potassium 3.2 mmol/L (3.4-5.1); Sodium 147 mmol/L (137-145)
--- NOTE | 2025-05-19 07:50 | P.PN_ITS ---
Subjective Subjective Date Patient Seen: 05/19/25 Interval history: Sleeping comfortably this morning but arousable and conversant. Denies any pain or discomfort. Exam Vital Signs (past 8 hours): - 05/19/25 00:00 05/19/25 01:40 05/19/25 04:00 Temperature 97.5 F L 97.9 F Pulse Rate 86 72 90 Respiratory Rate 15 18 Blood Pressure 163/91 H 143/63 H 168/83 H Pulse Oximetry 98 99 Oxygen Flow Rate 4 4 Fraction of Inspired Oxygen 28 SaO2/FiO2 Ratio 357 Oxygen Delivery Method Oximask Oxygen Flow Rate 4 Narrative Exam Narrative: General: Pleasant, NAD HEENT: NC/AT, EOMI, edentulous, moist membranes CV: RRR, normal S1-S2 Resp: CWOB Ext: No edema Skin: No rash or lesions noted Neuro: Awake, alert, decreased cognition at baseline, moves all extremities, gives yes/no answer to most questions Objective Labs 05/18/25 05:50 05/19/25 04:40 Labs: Laboratory Results - last 24 hr 05/18/25 05/18/25 05/18/25 12:25 16:58 23:28 Sodium Potassium Chloride Carbon Dioxide BUN Creatinine Estimated GFR BUN/Creatinine Ratio Glucose POC Whole Bld Glucose 92 111 H 100 H Calcium Magnesium 05/19/25 05/19/25 04:40 06:47 Sodium 147 H Potassium 3.2 L Chloride 111 H Carbon Dioxide 30 BUN 8 L Creatinine 1.11 Estimated GFR > 60 BUN/Creatinine Ratio 7.2 Glucose 109 H POC Whole Bld Glucose 106 H Calcium 9.8 Magnesium 1.5 L PFSH Medical History (Updated 05/18/25 @ 13:30 by Koko Urban MD) Paroxysmal atrial fibrillation with rapid ventricular response Schizophrenia in full remission with history of multiple episodes Surgical History Anesthesia Status post hernia repair (~2005) Status post appendectomy Family History Father History of heart disease Stroke Mother History of heart disease Stroke Grandfather History of heart disease Grandmother Stroke Grandfather History of heart disease Grandmother Cancer Social History household members: spouse Smoking Status: Smoker, status unknown alcohol intake: never Assessment & Plan Assessment and plan (1) Aspiration pneumonia: Qualifiers: Aspiration pneumonia type: unspecified Laterality: bilateral Lung location: lower lobe of lung Qualified Code(s): J69.0 - Pneumonitis due to inhalation of food and vomit Status: Acute (2) At high risk for aspiration: Status: Acute (3) Occipital cerebral infarction: Status: Acute (4) Anemia: Qualifiers: Anemia type: unspecified type Qualified Code(s): D64.9 - Anemia, unspecified Status: Acute (5) Paroxysmal atrial fibrillation: Status: Chronic (6) Essential hypertension: Status: Chronic (7) Hyponatremia: Status: Acute (8) JANIE (acute kidney injury): Status: Acute (9) Type 2 diabetes, diet controlled: Problem details: 07/10/2023: A1 6.4% (previous 6.2% 03/19/2022) Status: Acute (10) Developmental disorder of scholastic skills, unspecified: Status: Chronic (11) Benign prostatic hyperplasia with lower urinary tract symptoms: Qualifiers: Lower urinary tract symptom detail: nocturia Qualified Code(s): N40.1 - Benign prostatic hyperplasia with lower urinary tract symptoms; R35.1 - Nocturia Status: Chronic (12) Gout, arthritis: Status: Chronic Assessment & Plan narrative: 79-year-old male with PAF, HTN, T2DM, developmental delay admitted for aspiration pneumonia in context of recent choking event. #aspiration PNA Witnessed choking episodes during dinner night before admission, imaging consistent with bilateral aspiration pneumonia. Leukocytosis now resolved. - Unasyn 3g q6h (05/14-05/19), s/p ceftriaxone + Flagyl in ER (05/14) #high aspiration risk MBSS yesterday revealed moderate oral phase dysphagia and severe pharyngeal phase dysphagia with impact to both swallowing efficiency and safety. Pt does not appear safe for a PO diet at this time and is at a high aspiration risk. Now going on 5 days NPO, will need enteral feeding as alternative for fluids and particularly calories if treatment preferences remain consistent. Long discussion with patient and brother regarding management options including doing nothing with eventual inevitability that he will aspirate food and redevelop pneumonia, NG tube with TPN and outpatient speech therapy to work on swallowing, surgical placement of PEG tube for terminal superintendent nutrition. Patient clearly indicates preference for PEG and wants to avoid NGT if possible. -surgery consult for possible PEG tube placement -dietary consult for TPN evaluation #new subacute/chronic R occipital lobe infarct Noted on intake imaging outside any window to treat. Already a resident at [facility]. May be contributing factor but location affected more c/w vision rather than swallowing. #anemia normocytic acute on chronic Chronic issue but significant drop compared to prior levels. Potential occult bleed given use of blood thinner so holding Eliquis for now. He did get 1 unit blood the night of admission. Iron low normal, if continues to drop may need colonoscopy. Could consider EGD if ultimately decides on G-tube. -ctm, replete prn -stool guaiac pending #PAF #hypertension Currently in sinus rhythm on monitor with possible active bleed of some kind given pronounced anemia. -hold Eliquis -continue metoprolol IV q6h prn sbp > 160 #hyperatremia Original hyponatremia likely due to urinary losses with inadequate replacement, now overcorrected. -switch to D5 1/2 NS #hypokalemia #hypomagnesemia -replete prn #JANIE Resolved. -s/p 1 L LR bolus in ER -mIVF @100cc/hr -avoid nephrotoxic meds resume diet when cleared #diabetes Diet-controlled. -continue sensitive SSI #developmental disorder Normally managed with longstanding regimen as below, currently holding due to NPO status/high aspiration risk. -hold quetiapine 150 mg q.a.m., 100 mg midday, 150 mg q.h.s. -hold depakote 275 mg b.i.d. -hold trazodone 50 mg q.h.s. #BPH #gout -holding home tamsulosin, allopurinol 2/2 npo status Dispo: Likely back to long-term care at [facility] pending goals of care discussion to clarify long-term treatment preferences. Diet: npo GI ppx: ppi DVT ppx: lovenox Code: FULL PCP: Wilmar MDM: Hector (brother, ) Time-Based Coding :: 60 minutes spent with patient and on the chart (including review of chart, obtaining history, exam, reviewing outside data, placing orders, documenting exam and treatment plan, and counseling patient) on 05/19/2025. PROFEE Storehouse Clerk Document charge(s): Yes Charge Codes Subsequent inpatient/observation care: [id number]
[2025-05-19] MEDS: MAGNESIUM SULFATE 2 GM/50 ML PIGGYBACK IV (10:13)
--- NOTE | 2025-05-19 11:00 | SLP.IPNOTE ---
Chart reviewed and RN consulted. Pt minimally awake today and continues to be confused. His brother will be coming this afternoon to have a goals of care conversation with MD to inform POC and discharge planning. CONSULTANT EDUCATION unable to attend meeting due to schedule. Spoke with Dr. Urban on the phone and reviewed MBSS results from 05/18. Please see full report for more information. Explained that the risk of developing another aspiration PNA is high given combination of known laryngeal aspiration across all textures trialed despite use of compensatory strategies, poor oral health, and compromised immune system/health status. Discussed risks and benefits of remaining NPO with non oral alternative diet for nutrition/hydration vs. thin liquids (water only) and puree for comfort from a swallowing safety/efficiency perspective. Explained that current research re: PEG placement in individuals with advanced dementia/severe cognitive impairment does not demonstrate prolonged life, improved nutrition, prevention of aspiration, improved function, or improved wound healing. Per the [employer]'s position statement on PEG use with advanced dementia populations, Careful hand feeding should be offered because hand feeding has been shown to be as good as tube feeding for the outcomes of , aspiration pneumonia, functional status and comfort. Given chronic and progressive nature of pt's dysphagia, overall medical status, and significant cognitive impairment, pt does not appear to be a good candidate for rehabilitative exercises at this time to improve swallowing safety/efficiency. CONSULTANT EDUCATION to follow up as needed pending goals of care conversation.
[2025-05-19] MEDS: METOPROLOL TARTRATE 5 MG/5 ML INJ IV ×2 (12:00→16:38)
[2025-05-19] MEDS: DEXTROSE 5%-LACTATED RINGERS 1,000 ML 100 ML IV (12:28)
[2025-05-19] MEDS: NITROGLYCERIN OINT 1 INCH/GM OINT...G. 0.5 INCH TOP ×3 (12:35→21:59)
--- NOTE | 2025-05-19 12:38 | DIET.CONS ---
Dietary Consultation Note Admission Date: 05/14/2025 15:10 Assessment: 79 y M admitted for aspiration pneumonia. Dietitian screened for PEG. PMH of DM - diet controlled. Day 5 NPO, upon EMR review, ST recc NPO unless going comfort care. Per RN, family and provider discussed, they wish to move forward with a PEG. Pt has been getting 120g dextrose over 24 hours since admit via IVF. Ht: 177.8 cm Wt: 78.471 kg BMI: 24.8 UBW: 90.5 kg on 08/18/24 (-13% weight loss within 1 yr, non-severe) Last BM: () MNA: 13 Gerardo Score: 9 Diet: 05/14/25 19:50 NPO Diet Diet Modifications: NPO Type: NPO except for Meds Nutrition Percent Meal Consumed patient is NPO 05/18/25 18:00 Percent Meal Consumed pt is NPO 05/17/25 18:00 Labs: RBC 3.24 X10^6/uL (4.5-5.9) L 05/18/25 05:50 Hgb 9.2 g/dL (13.5-17.5) L 05/18/25 05:50 Hct 27.9 % (41-53) L 05/18/25 05:50 Creatinine 1.11 mg/dL (0.66-1.25) 05/19/25 04:40 Hemoglobin A1c 4.7 % (4.0-6.0) 05/15/25 05:05 Lactate 2.1 mmol/L (0.7-2.1) 05/14/25 12:44 Iron 60 ug/dL (49-181) 05/15/25 05:05 % Saturation 28 % (20-50) 05/15/25 05:05 Ferritin 134 ng/mL (18-464) 05/15/25 05:05 Nutrition Diagnosis: Inadequate oral intake related to inability to consume energy/protein intake orally with dysphagia as evidenced by MBSS revealed moderate oral phase dysphagia and severe pharyngeal phase dysphagia; ST recommending NPO and enteral nutrition to meet needs if within goals of care, day 5 NPO Interventions: If tube feeds started here: -Continuous Glucerna 1.5 via PEG or NG tube starting at 10 ml/hr and advancing 10 mL Q8H as tolerated until goal rate 50 mL/hr. Flush 200 mL free water Q4H. -Recc monitoring K+, Mg, phos for first 3 days on feeds considering low Mg and K+ this morning, which was replete per pharmacy -Recc reducing half of IV fluids when enteral feeds and flushes are started and then d/c them when enteral feeds are at goal rate Goal rate meets 1800 kcals, 98 g protein, 2100 mL fluids from formula+ flushes (not considering any IVF) EER: 1800 kcals (23 kcal/kg per BMI vs MSJx1.2) 80-95 g protein (1-1.2g/kg) 2291-6444 mL fluids daily (25 mL/kg per age vs erick segar formula) Monitoring/Evaluations: start of feeds, labs, tolerance Electronically Signed by: Susan Wellington 05/19/25 12:38 Clinical Dietitian [address] [address]
[2025-05-19] MEDS: POTASSIUM CHLORIDE IN WATER 10 MEQ/100 ML PIGGYBACK 100 MEQ IV ×4 (13:13→17:27)
--- NOTE | 2025-05-19 17:50 | P.CONS_ITS ---
History of Present Illness Consult details Date Patient Seen: 05/19/25 Time Patient Seen: 17:50 Chief complaint: possible aspiration/Cough Narrative: Stephen is a 79-year-old man with developmental delay who has been admitted for aspiration pneumonia. A discussion took place between the patient, his brother Hector and Dr. Urban about enteral feeding access in the form of a PEG tube. The patient and his brother desire to proceed with a PEG tube. Meds Home Medications and Allergies Home Medications ?Medication ?Instructions ?Recorded ?Confirmed ?Type divalproex 125 mg tablet,delayed 375 mg (3 x 125 mg) P O BID #180 06/23/22 09/30/24 Rx release (Depakote) tabs acetaminophen 325 mg tablet 650 mg (2 x 325 mg) PO QID #240 06/27/23 09/30/24 Rx tabs allopurinol 100 mg tablet 100 mg PO DAILY #30 tabs 10/1509/30/24 Rx apixaban 5 mg tablet (Eliquis) See Rx Instructions .Ro [place] 06/27/23 09/30/24 Rx .COMPLEX #60 ea loratadine 10 mg tablet 10 mg PO DAILY #30 tabs 01/0 10/1509/30/24 Rx metoprolol tartrate 25 mg tablet 25 mg PO BID #60 tabs 06/27/23 09/30/24 Rx quetiapine 100 mg tablet See Rx Instructions PO .COMP THOMAS 06/27/23 09/30/24 Rx #120 tabs tamsulosin 0.4 mg capsule (Flomax) 0.8 mg (2 x 0.4 mg) PO BEDTIME #60 06/27/23 09/30/24 Rx caps trazodone 50 mg tablet 50 mg PO BEDTIME #30 tabs 09/30/24 Rx diltiazem HCl 30 mg tablet 30 mg PO QID #120 tabs 1 11/1409/30/24 Rx polyethylene glycol 3350 17 17 g PO DAILY PRN constipa tion 06/25/24 09/30/24 Rx gram/dose oral powder #510 grams Allergies Allergy/AdvReac Type Severity Reaction Status Date / Time No Known Drug Allergies Allergy Verified 05/14/25 12:30 Exam Vital Signs (past 8 hours): - 05/19/25 11:11 05/19/25 15:56 Temperature 97 F L 97.6 F Pulse Rate 87 84 Respiratory Rate 16 16 Blood Pressure 173/89 H 172/82 H Pulse Oximetry 97 96 Oxygen Flow Rate 0 0 Fraction of Inspired Oxygen 28 SaO2/FiO2 Ratio 357 Oxygen Delivery Method Oximask Oxygen Flow Rate 0 Const General: No acute distress GI Other: Abdomen is soft, nontender, nondistended No midline or left upper quadrant surgical scars Objective Labs 05/18/25 05:50 05/19/25 04:40 Labs: Laboratory Results - last 24 hr 05/18/25 05/19/25 05/19/25 23:28 04:40 06:47 Sodium 147 H Potassium 3.2 L Chloride 111 H Carbon Dioxide 30 BUN 8 L Creatinine 1.11 Estimated GFR > 60 BUN/Creatinine Ratio 7.2 Glucose 109 H POC Whole Bld Glucose 100 H 106 H Calcium 9.8 Magnesium 1.5 L 05/19/25 05/19/25 11:15 17:21 Sodium Potassium Chloride Carbon Dioxide BUN Creatinine Estimated GFR BUN/Creatinine Ratio Glucose POC Whole Bld Glucose 112 H 97 Calcium Magnesium [facility] Medical History (Updated 05/18/25 @ 13:30 by Koko Urban MD) Paroxysmal atrial fibrillation with rapid ventricular response Schizophrenia in full remission with history of multiple episodes Surgical History Anesthesia Status post hernia repair (~2005) Status post appendectomy Family History Father History of heart disease Stroke Mother History of heart disease Stroke Grandfather History of heart disease Grandmother Stroke Grandfather History of heart disease Grandmother Cancer Social History household members: spouse Tobacco & Substance Use Smoking Status: Smoker, status unknown alcohol intake: never Assessment & Plan Assessment and plan (1) At high risk for aspiration: Status: Acute Plan Plan for percutaneous endoscopic gastrostomy tube tomorrow morning at roughly 9:00 a.m.. Time-Based Coding :: [TOTAL MINUTES] spent with patient and on the chart (including review of chart, obtaining history, exam, reviewing outside data, placing orders, documenting exam and treatment plan, and counseling patient) on [DATE]. PROFEE Charge Codes Inpatient or Observation consultation: [id number]
[2025-05-20] VITALS (17 sets, daily range): BP systolic 137–187; BP diastolic 70–107; PULSE 60–90; RESP 15–22; TEMP 36.1–36.7; O2SAT 94–98
[2025-05-20] MEDS: METOPROLOL TARTRATE 5 MG/5 ML INJ IV ×2 (05:05→11:04)
[2025-05-20] MEDS: NITROGLYCERIN OINT 1 INCH/GM OINT...G. 0.5 INCH TOP ×2 (05:55→12:35)
[2025-05-20 06:12] LABS: Add Manual Diff / Slide Review NO; Hematocrit 28.3 % (41-53); Hemoglobin 9.3 g/dL (13.5-17.5); Lymphocytes Absolute Auto 2100 /uL (1100-4500); Mean Corpuscular HGB Conc 32.9 % (30-36); Mean Corpuscular Hemoglobin 28.1 PG (26-34); Mean Corpuscular Volume 85.5 fL (80-100); Platelet Count 196 X10^3/uL (150-400)
[2025-05-20] MEDS: DEXTROSE 5%-LACTATED RINGERS 1,000 ML 100 ML IV (06:19)
[2025-05-20 06:20] LABS: Blood Urea Nitrogen 9 mg/dL (9-20); Calcium 10.0 mg/dL (8.4-10.2); Carbon Dioxide 26 mmol/L (22-32); Chloride 113 mmol/L (98-107); Estimated Glomerular Filt Rate > 60 mL/min (>60); Glucose 101 mg/dL (70-99); HEMOLYSIS < 15 (0-50); Magnesium 2.0 mg/dL (1.6-2.3); Potassium 3.2 mmol/L (3.4-5.1); Sodium 149 mmol/L (137-145)
--- NOTE | 2025-05-20 08:13 | CM.DPC ---
DCP Cont: Per Surgeon Consult, discussion between Dr. Urban, pt, and brother and decision to proceed with G tube placement for artificial nutrition as pt remains unable to get adequate nutrition orally. Surgeon has pt on the schedule for the OR for feeding tube placement today Thanskgiving around 0900. SW to follow closely for confirming feeding tube properly functioning and director design recommendations for nutrition before ongoing plan to return to [facility] at discharge. SANTOSH Littlejohn
--- NOTE | 2025-05-20 09:27 | SUR.OPER ---
Supine on padded OR bed, head on pillow, arms padded and tucked at sides, legs uncrossed, safety belt at thigh, tape over blanket over lower legs .
--- NOTE | 2025-05-20 09:47 | PM.OP.1 ---
Operative Date/Time/Diagnoses Date of procedure: 05/20/25 Time of procedure: 09:47 Pre-op diagnosis: Aspiration Post-op diagnosis: same Procedure & Clinicians Procedure: Percutaneous endoscopic gastrostomy tube Same procedure(s) as scheduled: Yes Surgeon: Lauro Yo Assisted?: No Anesthesia Type: MAC +/- Operative Notes Findings: 1 Applied: none Estimated Blood Loss (mL): 8 Procedure in detail: The patient was given preoperative antibiotic. Patient was brought to the operating room and placed on the OR table in the supine position. A time-out was performed. Mac was induced. The abdomen was prepped and draped in the usual fashion and a time-out was performed. We started with an EGD. The endoscope was inserted into the stomach and the stomach was insufflated with air as much as possible. A suitable location was chosen in the left upper quadrant near the midline where digital palpation on the abdominal wall was translated to the gastric wall endoscopically. Local anesthetic was injected into the skin and subcutaneous tissue at this location. An incision was made with a scalpel. The needle was inserted while drawing back to assure no air bubbles until the needle was in the stomach which was confirmed. The sheath was then slid over the needle and the needle was removed. The wire was inserted into the stomach. A snare was used to grasp the wire and followed out of the patient's mouth. PEG tube was advanced over the wire per the manufacture's instructions. The endoscope was reinserted to observe as the PEG was advanced through the gastric and abdominal wall per the manufacture's instructions. A photograph was taken of the bumper within the gastric lumen. The scope was then removed and the distal end of the PEG tube was trimmed and the bumper was applied. The clasp was applied followed by the cap. A dressing was applied around PEG site. The patient was awakened and brought to recovery room. Complications: none Post-operative Condition: stable Disposition: PACU
[2025-05-20] MEDS: POTASSIUM CHLORIDE IN WATER 10 MEQ/100 ML PIGGYBACK 100 MEQ IV ×4 (11:04→15:06)
--- NOTE | 2025-05-20 11:51 | P.PN_ITS ---
Subjective Subjective Interval history: The pt is minimally responsive to questions, with yes and no answers. He denies any current pain, SOB, chest pain. Exam Vital Signs (past 8 hours): - 05/20/25 04:00 05/20/25 08:00 05/20/25 08:54 Temperature 97.3 F L 97.0 F L 97.9 F Pulse Rate 88 83 81 Respiratory Rate 18 20 20 Blood Pressure 187/93 H 161/99 H 179/96 H Pulse Oximetry 97 97 96 Oxygen Delivery Method Room Air Oxygen Flow Rate 0 0 05/20/25 09:49 05/20/25 09:55 05/20/25 10:10 Temperature 97.9 F 97.5 F L Pulse Rate 90 75 83 Respiratory Rate 21 15 16 Blood Pressure 163/107 H 163/85 H 155/82 H Pulse Oximetry 97 97 96 Oxygen Delivery Method Room Air Room Air Oxygen Flow Rate 0 05/20/25 10:40 05/20/25 11:23 Temperature 97.8 F 97.1 F L Pulse Rate 81 72 Respiratory Rate 18 18 Blood Pressure 170/94 H 141/75 H Pulse Oximetry 95 96 Oxygen Delivery Method Oxygen Flow Rate 0 0 Fraction of Inspired Oxygen 28 SaO2/FiO2 Ratio 357 Oxygen Delivery Method Room Air Oxygen Flow Rate 0 Narrative Exam Narrative: General: Pleasant, NAD CV: RRR, no murmurs Resp: clear to auscultation bilaterally Abd: soft, nondistended, appropriately tender with PEG tube in place Ext: No edema Neuro: Awake, alert, decreased cognition at baseline, moves all extremities, gives yes/no answer to most questions Objective Labs 05/20/25 06:00 05/20/25 06:00 Labs: Laboratory Results - last 24 hr 05/19/25 05/19/25 05/19/25 11:15 17:21 20:46 WBC RBC Hgb Hct MCV MCH MCHC RDW Plt Count Neut % (Auto) Lymph % (Auto) Floyd % (Auto) Eos % (Auto) Baso % (Auto) Neut # (Auto) Lymph # (Auto) Floyd # (Auto) Eos # (Auto) Baso # (Auto) Sodium Potassium Chloride Carbon Dioxide BUN Creatinine Estimated GFR BUN/Creatinine Ratio Glucose POC Whole Bld Glucose 112 H 97 108 H Calcium Magnesium 05/20/25 05/20/25 05/20/25 06:00 08:06 11:11 WBC 7.0 RBC 3.31 L Hgb 9.3 L Hct 28.3 L MCV 85.5 MCH 28.1 MCHC 32.9 RDW 15.9 H Plt Count 196 Neut % (Auto) 56.2 Lymph % (Auto) 30.5 Floyd % (Auto) 6.4 Eos % (Auto) 5.8 H Baso % (Auto) 1.1 Neut # (Auto) 3900 Lymph # (Auto) 2100 Floyd # (Auto) 400 Eos # (Auto) 400 Baso # (Auto) 100 Sodium 149 H Potassium 3.2 L Chloride 113 H Carbon Dioxide 26 BUN 9 Creatinine 1.17 Estimated GFR > 60 BUN/Creatinine Ratio 7.7 Glucose 101 H POC Whole Bld Glucose 86 125 H 99 Calcium 10.0 Magnesium 2.0 PFSH Medical History (Updated 05/18/25 @ 13:30 by Koko Urban MD) Paroxysmal atrial fibrillation with rapid ventricular response Schizophrenia in full remission with history of multiple episodes Surgical History Anesthesia Status post hernia repair (~2005) Status post appendectomy Family History Father History of heart disease Stroke Mother History of heart disease Stroke Grandfather History of heart disease Grandmother Stroke Grandfather History of heart disease Grandmother Cancer Social History household members: spouse Smoking Status: Smoker, status unknown alcohol intake: never Assessment & Plan Assessment and plan (1) Aspiration pneumonia: Qualifiers: Aspiration pneumonia type: unspecified Laterality: bilateral Lung location: lower lobe of lung Qualified Code(s): J69.0 - Pneumonitis due to inhalation of food and vomit Status: Acute (2) At high risk for aspiration: Status: Acute (3) Occipital cerebral infarction: Status: Acute (4) Anemia: Qualifiers: Anemia type: unspecified type Qualified Code(s): D64.9 - Anemia, unspecified Status: Acute (5) Paroxysmal atrial fibrillation: Status: Chronic (6) Essential hypertension: Status: Chronic (7) Hyponatremia: Status: Acute (8) JANIE (acute kidney injury): Status: Acute (9) Type 2 diabetes, diet controlled: Problem details: 07/10/2023: A1 6.4% (previous 6.2% 03/19/2022) Status: Acute (10) Developmental disorder of scholastic skills, unspecified: Status: Chronic (11) Benign prostatic hyperplasia with lower urinary tract symptoms: Qualifiers: Lower urinary tract symptom detail: nocturia Qualified Code(s): N40.1 - Benign prostatic hyperplasia with lower urinary tract symptoms; R35.1 - Nocturia Status: Chronic (12) Gout, arthritis: Status: Chronic Assessment & Plan narrative: 79-year-old male with PAF, HTN, T2DM, developmental delay admitted for aspiration pneumonia in context of recent choking event. #aspiration PNA Witnessed choking episodes during dinner night before admission, imaging consistent with bilateral aspiration pneumonia. Leukocytosis now resolved. - s/p Unasyn 3g q6h (05/14-05/19), s/p ceftriaxone + Flagyl in ER (05/14) #high aspiration risk MBSS revealed moderate oral phase dysphagia and severe pharyngeal phase dysphagia with impact to both swallowing efficiency and safety. Pt does not appear safe for a PO diet at this time and is at a high aspiration risk. After discussion with pt and his brother yesterday, decision was made for PEG tube placement which was completed this morning without complications. - Will start glucerna trickle feeds - Nutrition consulted to initiate full feeds tomorrow (not here today due to Thanksgiving) #new subacute/chronic R occipital lobe infarct Noted on intake imaging outside any window to treat. Already a resident at [facility]. May be contributing factor but location affected more c/w vision rather than swallowing. #anemia normocytic acute on chronic Chronic issue but significant drop compared to prior levels. Potential occult bleed given use of blood thinner so holding Eliquis for now. He did get 1 unit blood the night of admission. Iron low normal, if continues to drop may need colonoscopy. H/H stable. - Continue to trend #PAF #hypertension Currently in sinus rhythm on monitor with possible active bleed of some kind given pronounced anemia. -hold Eliquis -Restart home antihypertensives via PEG #hyperatremia Original hyponatremia likely due to urinary losses with inadequate replacement, now overcorrected. -switch to D5 1/2 NS #hypokalemia #hypomagnesemia -replete prn #JANIE Resolved. -s/p 1 L LR bolus in ER -mIVF @100cc/hr -avoid nephrotoxic meds resume diet when cleared #diabetes Diet-controlled. -continue sensitive SSI #developmental disorder Normally managed with longstanding regimen as below -restart quetiapine 150 mg q.a.m., 100 mg midday, 150 mg q.h.s. -restart depakote 275 mg b.i.d. -restart trazodone 50 mg q.h.s. #BPH #gout -restart home tamsulosin, allopurinol Dispo: Likely back to long-term care at [facility] Diet: npo, start trickles feeds through PEG GI ppx: ppi DVT ppx: lovenox Code: FULL PCP: Wilmar MDM: Hector (brother, ) Time-Based Coding :: [TOTAL MINUTES] spent with patient and on the chart (including review of chart, obtaining history, exam, reviewing outside data, placing orders, documenting exam and treatment plan, and counseling patient) on [DATE]. PROFEE [employer] [address] Document charge(s): Yes Charge Codes Subsequent inpatient/observation care: [id number]
--- NOTE | 2025-05-20 12:44 | PC.NURSE ---
No documented BM since arrival.
--- NOTE | 2025-05-20 12:45 | CM.DPC ---
TF to start today. No documented bowel movements this hospitalization at this time. Patient will need to have a BM prior to return to .
[2025-05-20] MEDS: DIVALPROEX 125 MG CAP 375 MG PO (20:39)
[2025-05-20] MEDS: TAMSULOSIN 0.4 MG CAPSULE 0.8 MG PO (20:40)
[2025-05-21] VITALS (9 sets, daily range): BP systolic 133–171; BP diastolic 60–95; PULSE 64–109; RESP 16–24; TEMP 35.9–36.8; O2SAT 92–99
[2025-05-21] MEDS: DEXTROSE 5%-LACTATED RINGERS 1,000 ML 100 ML IV ×2 (00:34→17:03)
[2025-05-21] MEDS: SODIUM CHLORIDE 0.9% FLUSH 10 ML IV (05:04)
[2025-05-21] MEDS: METOPROLOL TARTRATE 5 MG/5 ML INJ IV (05:04)
[2025-05-21 05:10] LABS: Add Manual Diff / Slide Review NO; Hematocrit 26.9 % (41-53); Hemoglobin 8.7 g/dL (13.5-17.5); Lymphocytes Absolute Auto 2500 /uL (1100-4500); Mean Corpuscular HGB Conc 32.3 % (30-36); Mean Corpuscular Hemoglobin 27.8 PG (26-34); Mean Corpuscular Volume 86.2 fL (80-100); Platelet Count 160 X10^3/uL (150-400)
[2025-05-21 05:28] LABS: Alanine Aminotransferase 14 IU/L (<50); Albumin 3.1 g/dL (3.5-5.0); Albumin Globulin Ratio 0.8 (1.0-2.8); Alkaline Phosphatase 64 U/L (38-126); Blood Urea Nitrogen 10 mg/dL (9-20); Calcium 9.8 mg/dL (8.4-10.2); Carbon Dioxide 28 mmol/L (22-32); Chloride 111 mmol/L (98-107); Estimated Glomerular Filt Rate 56 mL/min (>60); Globulin 4.1 g/dL (1.7-4.1); Glucose 119 mg/dL (70-99); HEMOLYSIS < 15 (0-50); Potassium 3.2 mmol/L (3.4-5.1); Sodium 146 mmol/L (137-145); Total Protein 7.2 g/dL (6.3-8.2)
[2025-05-21] MEDS: POTASSIUM CHLORIDE IN WATER 10 MEQ/100 ML PIGGYBACK 100 MEQ IV ×4 (08:20→11:20)
[2025-05-21] MEDS: DIVALPROEX 125 MG CAP 375 MG PO (09:40)
--- NOTE | 2025-05-21 10:10 | DI.RAD.S_ITS ---
PROCEDURE: XR CHEST 1V INDICATIONS: crackles on exam TECHNIQUE: One view of the chest was acquired. COMPARISON: [facility], CR, XR CHEST 1V, 05/14/2025, 12:40. FINDINGS: Surgical changes and devices: None. Lungs and pleura: Shallow inspiration. No focal consolidation. No pleural effusions or pneumothorax. Mediastinum: Mediastinal contours appear normal. Heart size is normal. Bones and chest wall: No suspicious bony lesions. Overlying soft tissues appear unremarkable. IMPRESSION: No acute cardiopulmonary abnormality is seen. Dictated by: Gregg Joyner M.D. on 05/21/2025 at 10:32 Approved by: Gregg Joyner M.D. on 05/21/2025 at 10:38
--- NOTE | 2025-05-21 10:55 | DIET.PN1 ---
Dietary Progress Note Assessment: PEG placed. TF running at trickle with 100 mL free water flushes Q4H per RN. RN reports no vomiting/abd distension and no issues with PEG currently. Spoke to Ronald (provider) and RN, reports TF can be increased to goal. Orders entered. Running 100 mL D5-lactate ringers fluid. See below for recc of fluids. Communicated this recc with pharmacist. Ht: 177.8 cm Wt: 78.471 kg BMI: 24.8 UBW: 90.5 kg on 08/18/24 (-13% weight loss within 1 yr, non-severe) Last BM: () MNA: 13 Gerardo Score: 13 Diet: 05/14/25 19:50 NPO Diet Diet Modifications: NPO Type: NPO except for Meds 05/20/25 Dinner Tube Feeding Diet Diet Modifications: TF Supplement type: Glucerna 1.5 ayanna TF mode of delivery: Continuous Starting flow rate mL/hr: 20 Flow rate goal mL/hr:50 Titration Schedule to reach Goal Rate: 10 mL Q6H Max total daily volume in mL: 2400 Free fluid: 200 Free Water Frequency: Q4H Nutrition Percent Meal Consumed Tube feed 05/20/25 18:00 Type of Feeding Tube PEG 05/20/25 18:48 Type of Feeding Tube PEG 05/20/25 12:00 Labs: RBC 3.13 X10^6/uL (4.5-5.9) L 05/21/25 04:17 Hgb 8.7 g/dL (13.5-17.5) L 05/21/25 04:17 Hct 26.9 % (41-53) L 05/21/25 04:17 Creatinine 1.30 mg/dL (0.66-1.25) H 05/21/25 04:17 Hemoglobin A1c 4.7 % (4.0-6.0) 05/15/25 05:05 Lactate 2.1 mmol/L (0.7-2.1) 05/14/25 12:44 Iron 60 ug/dL (49-181) 05/15/25 05:05 % Saturation 28 % (20-50) 05/15/25 05:05 Ferritin 134 ng/mL (18-464) 05/15/25 05:05 Nutrition Diagnosis: Inadequate oral intake related to inability to consume energy/protein intake orally with dysphagia as evidenced by MBSS revealed moderate oral phase dysphagia and severe pharyngeal phase dysphagia; ST recommending NPO and enteral nutrition to meet needs if within goals of care Interventions: -Continuous Glucerna 1.5 via PEG starting at 20 ml/hr and advancing 10 mL Q8H as tolerated until goal rate 50 mL/hr. Flush 200 mL free water Q4H. -Recc monitoring K+, Mg, phos for first 3 days on feeds -Recc d/c of IV fluids. Through enteral feeds plus flushes will be meeting 1750 mL today and full 2100 mL when enteral feeds are advanced to goal by tomorrow. Goal rate meets 1800 kcals, 98 g protein, 2100 mL fluids from formula+ flushes (not considering any IVF) EER: 1800 kcals (23 kcal/kg per BMI vs MSJx1.2) 80-95 g protein (1-1.2g/kg) 8938-4537 mL fluids daily (25 mL/kg per age vs erick segar formula) Monitoring/Evaluations: labs, tolerance, fluids Electronically Signed by: Susan Wellington 05/21/25 10:55 Clinical Dietitian [address] [address]
--- NOTE | 2025-05-21 11:52 | P.PN_ITS ---
Subjective Subjective Interval history: Pt is appearing significantly more ill this morning. Breathing much more labored with belly breath and mild retractions. Very wet breath sounds. Pt continues to answer limited questions with very quite yes and no answers. Denies any pain. States he does not feel that his breathing is labored. Exam Vital Signs (past 8 hours): - 05/21/25 04:00 05/21/25 08:34 05/21/25 09:40 Temperature 98.3 F 97.7 F Pulse Rate 94 H 78 Respiratory Rate 24 20 Blood Pressure 171/69 H 133/60 133/60 Pulse Oximetry 92 95 Oxygen Flow Rate 0 0 Fraction of Inspired Oxygen 28 SaO2/FiO2 Ratio 357 Oxygen Delivery Method Room Air Oxygen Flow Rate 0 Narrative Exam Narrative: Gen: labored breathing, wet sounding, otherwise comfortable in bed CV: RRR Resp: coarse breath sounds throughout, significant transmitted upper airway sounds, borderline agonal breathing Abd: soft, nondistended,nontender, PEG tube in place Ext: No edema Neuro: awake, alert, decreased cognition at baseline, moves all extremities, gives yes/no answer to most questions Objective Labs 05/21/25 04:17 05/21/25 04:17 Labs: Laboratory Results - last 24 hr 05/20/25 05/20/25 05/21/25 16:23 21:23 00:25 WBC RBC Hgb Hct MCV MCH MCHC RDW Plt Count Neut % (Auto) Lymph % (Auto) Terrell % (Auto) Eos % (Auto) Baso % (Auto) Neut # (Auto) Lymph # (Auto) Terrell # (Auto) Eos # (Auto) Baso # (Auto) Sodium Potassium Chloride Carbon Dioxide BUN Creatinine Estimated GFR BUN/Creatinine Ratio Glucose POC Whole Bld Glucose 88 107 H 110 H Calcium Total Bilirubin AST ALT Alkaline Phosphatase Total Protein Albumin Globulin Albumin/Globulin Ratio 05/21/25 04:17 WBC 6.4 RBC 3.13 L Hgb 8.7 L Hct 26.9 L MCV 86.2 MCH 27.8 MCHC 32.3 RDW 15.7 H Plt Count 160 Neut % (Auto) 49.0 L Lymph % (Auto) 39.1 Terrell % (Auto) 6.5 Eos % (Auto) 4.6 H Baso % (Auto) 0.8 Neut # (Auto) 3200 Lymph # (Auto) 2500 Terrell # (Auto) 400 Eos # (Auto) 300 Baso # (Auto) 100 Sodium 146 H Potassium 3.2 L Chloride 111 H Carbon Dioxide 28 BUN 10 Creatinine 1.30 H Estimated GFR 56 L BUN/Creatinine Ratio 7.7 Glucose 119 H POC Whole Bld Glucose Calcium 9.8 Total Bilirubin 0.3 AST 24 ALT 14 Alkaline Phosphatase 64 Total Protein 7.2 Albumin 3.1 L Globulin 4.1 Albumin/Globulin Ratio 0.8 L PFSH Medical History (Updated 05/18/25 @ 13:30 by Koko Urban MD) Paroxysmal atrial fibrillation with rapid ventricular response Schizophrenia in full remission with history of multiple episodes Surgical History Anesthesia Status post hernia repair (~2005) Status post appendectomy Family History Father History of heart disease Stroke Mother History of heart disease Stroke Grandfather History of heart disease Grandmother Stroke Grandfather History of heart disease Grandmother Cancer Social History household members: spouse Smoking Status: Smoker, status unknown alcohol intake: never Assessment & Plan Assessment and plan (1) Aspiration pneumonia: Qualifiers: Aspiration pneumonia type: unspecified Laterality: bilateral Lung location: lower lobe of lung Qualified Code(s): J69.0 - Pneumonitis due to inhalation of food and vomit Status: Acute (2) At high risk for aspiration: Status: Acute (3) Occipital cerebral infarction: Status: Acute (4) Anemia: Qualifiers: Anemia type: unspecified type Qualified Code(s): D64.9 - Anemia, unspecified Status: Acute (5) Paroxysmal atrial fibrillation: Status: Chronic (6) Essential hypertension: Status: Chronic (7) Hyponatremia: Status: Acute (8) JANIE (acute kidney injury): Status: Acute (9) Type 2 diabetes, diet controlled: Problem details: 07/10/2023: A1 6.4% (previous 6.2% 03/19/2022) Status: Acute (10) Developmental disorder of scholastic skills, unspecified: Status: Chronic (11) Benign prostatic hyperplasia with lower urinary tract symptoms: Qualifiers: Lower urinary tract symptom detail: nocturia Qualified Code(s): N40.1 - Benign prostatic hyperplasia with lower urinary tract symptoms; R35.1 - Nocturia Status: Chronic (12) Gout, arthritis: Status: Chronic Assessment & Plan narrative: 79-year-old male with PAF, HTN, T2DM, developmental delay admitted for aspiration pneumonia in context of recent choking event. #Aspiration PNA Witnessed choking episodes during dinner night before admission, imaging consistent with bilateral aspiration pneumonia. Leukocytosis now resolved. - s/p Unasyn 3g q6h (05/14-05/19), s/p ceftriaxone + Flagyl in ER (05/14) #High aspiration risk MBSS revealed moderate oral phase dysphagia and severe pharyngeal phase dysphagia with impact to both swallowing efficiency and safety. Pt does not appear safe for a PO diet at this time and is at a high aspiration risk. After discussion with pt and his brother yesterday, decision was made for PEG tube placement which was completed this morning without complications. - Continue Glucerna - Nutrition consulted, initiated transition to full feeds #Increased work of breathing: Pt not able to clear secretions well, unfortunately unable to reach with suctioning. CXR completed without any evidence of recurrent pneumonia. Now on oxygen support. - Scopolamine patch - 20mg IV Laxis now - Oxygen PRN #Elevated creatinine: Unclear etiology. Pt with lower urinary output in the last 24hrs. - Continue mIVF - Restarting higher rate of feeds as above - 20mg Lasix as above to help improve urine output - Continue to trend #new subacute/chronic R occipital lobe infarct Noted on intake imaging outside any window to treat. Already a resident at [facility]. May be contributing factor but location affected more c/w vision rather than swallowing. #anemia normocytic acute on chronic Chronic issue but significant drop compared to prior levels. Potential occult bleed given use of blood thinner so holding Eliquis for now. He did get 1 unit blood the night of admission. Iron low normal, if continues to drop may need colonoscopy. H/H with slight drop, likely dilutional - Continue to trend #PAF #hypertension Currently in sinus rhythm on monitor with possible active bleed of some kind given pronounced anemia. -hold Eliquis -Restart home antihypertensives via PEG #hyperatremia: Improving Original hyponatremia likely due to urinary losses with inadequate replacement, now overcorrected. -Continue D5 LR #hypokalemia #hypomagnesemia -replete prn #diabetes Diet-controlled. -continue sensitive SSI #developmental disorder Normally managed with longstanding regimen as below -restart quetiapine 150 mg q.a.m., 100 mg midday, 150 mg q.h.s. -restart depakote 275 mg b.i.d. -restart trazodone 50 mg q.h.s. #BPH #gout -restart home allopurinol - tamsulosin held due to propensity to block PEG tubs Dispo: Likely back to long-term care at [facility] once stable. Discussed ongoing care with the pts brother this morning, and general downward trend from yesterday with increased work of breathing, elevated creatinine, etc. Brother continues to defer decision making to his brother. Informed brother that pt is barely speaking in an audible manner. Care management will contact pts brother as well to help clarify decision making. Pts brother again expressed that his brother just wants to live and they would like to do everything to make that happen at this point. Expressed concerns about his trajectory. Encouraged the pts brother to come to bedside today so that he can see the pt in person. He has a handicap child at home with high care needs, but will work to come in when he is able to. Diet: npo, start trickles feeds through PEG GI ppx: IV Pantoprazole DVT ppx: lovenox Code: FULL PCP: Wilmar MDM: Hector (brother, ) Time-Based Coding :: 90 spent with patient and on the chart (including review of chart, obtaining history, exam, reviewing outside data, placing orders, documenting exam and treatment plan, and counseling patient) on 05/21/25. PROFEE Principal Java Developer Document charge(s): Yes Charge Codes Subsequent inpatient/observation care: 98810 Inpatient/observation prolonged services: [id number]
[2025-05-21] MEDS: FUROSEMIDE 20 MG/2 ML VIAL IV (12:10)
[2025-05-21] MEDS: SCOPOLAMINE 1 PATCH TOP (12:10)
--- NOTE | 2025-05-21 12:10 | CM.DPC ---
FT at 10 ml/hr. Goal TF 50 ml/hr. Need BM, then return to SV. Per Dr. Cardenas, patient's brother will be coming later today to visit and to discuss Goals of Care with MD and/or CM/GENETICIST.
--- NOTE | 2025-05-21 13:07 | CM.DPC ---
[facility] [place] Social Work Note Consulted with Dr. Cardenas re: possible ethics consult, in partnership with IVETH De La Cruzsoftware engineering associate manager. Per Dr. Cardenas, she shared that pt's brother, Hector, has continued to defer to pt for critical decisionmaking needs, although pt has already been deemed non-decisional by both his PCP, Dr. Urban, and Dr. Cardenas, who is covering. Pt is showing more of a steady decline since placement of his G-tube, demonstrated by worsening kidney function, and now is requiring 3LO2 frequent suctioning. He is still a full-code. Discussed a plan to have this PROFESSIONAL ADVISOR call Hector and discuss code status and assist in providing palliative teaching on pt's declining status, and need for Hector to start making the important healthcare decisions now as his DPOA due to pt's incapacity. Explained the process of rescucitation on a person is failing in multiple organs, and that CPR would be more detrimental than beneficial at this point. He did share that pt would not want to be kept artificially alive, and would want a natural when the time occurs. Discussed a plan to update the POLST form to DNR, comfort measures with continuing the feeding tube feeds as long as his body can handle them. Focus on quality of life and continued improvement, but no CPR, and Liam will assume making decisions based on what pt has discussed with him previously. IVETH De La Cruz, will complete the POLST form when Liam arrives later this afternoon.
--- NOTE | 2025-05-21 14:38 | CM.DPC ---
Patient's brother, Hector, is at bedside. Hector requested detailed status of patient's lung and kidney function prior to signing an updated POLST form. Hector would like to speak with Dr. Cardenas to discuss the above. IVETH Castillo left VM for Dr. Cardenas. Dr. Cardenas returned call. Dr. Cardenas is on her way up to the Unit to speak with Hector.
[2025-05-21] MEDS: MORPHINE 2 MG/ML INJ 0.5 MG IV ×4 (17:01→23:10)
[2025-05-21] MEDS: NITROGLYCERIN OINT 1 INCH/GM OINT...G. 0.5 INCH TOP (20:43)
[2025-05-22] VITALS: BP 104/62; PULSE 100; RESP 16; TEMP 36.3; O2SAT 94
[2025-05-22] MEDS: MORPHINE 2 MG/ML INJ 0.5 MG IV ×2 (01:10→05:39)
[2025-05-22] MEDS: DEXTROSE 5%-LACTATED RINGERS 1,000 ML 100 ML IV (02:54)
[2025-05-22 04:48] VITALS: O2SAT 94
[2025-05-22 05:12] LABS: Add Manual Diff / Slide Review NO; Hematocrit 29.9 % (41-53); Hemoglobin 9.5 g/dL (13.5-17.5); Lymphocytes Absolute Auto 800 /uL (1100-4500); Mean Corpuscular HGB Conc 31.9 % (30-36); Mean Corpuscular Hemoglobin 28.2 PG (26-34); Mean Corpuscular Volume 88.3 fL (80-100); Platelet Count 137 X10^3/uL (150-400)
[2025-05-22 05:35] LABS: Blood Urea Nitrogen 11 mg/dL (9-20); Calcium 10.1 mg/dL (8.4-10.2); Carbon Dioxide 33 mmol/L (22-32); Chloride 109 mmol/L (98-107); Estimated Glomerular Filt Rate 47 mL/min (>60); Glucose 163 mg/dL (70-99); HEMOLYSIS < 15 (0-50); Potassium 4.2 mmol/L (3.4-5.1); Sodium 147 mmol/L (137-145)
--- NOTE | 2025-05-22 07:51 | PC.NURSE ---
Addendum entered by Asuncion Ang RN 05/22/25 13:48: Pt's brother notified staff that he is taking pt's watch home. Addendum entered by Asuncion Ang RN 05/22/25 13:12: Pt TOD 1305. Family at bedside. Dr. Cardenas notified, professional nursing tutor notified. Addendum entered by Asuncion Ang RN 05/22/25 11:22: 11:18 Pt has irregular RR, increased WOB. [id number] at bedside. RN educated family member on use of morphine and how it helps with increased WOB, and that it is available to give to pt, but sister refused, she feels like that is going to make him worse. literacy coordinator aware. Care ongoing. Original Note: RN came to bedside to assess pt. Pt has agonal breathing, and is unresponsive to voice. BP 49/22, HR 54, RR 11, 93% on 5L O2 mask. literacy coordinator notified of patient condition, Aissatou Tapia notified provider, case management, and family member.
[2025-05-22 08:00] VITALS: BP 49/22; PULSE 54; RESP 11; TEMP 35.6; O2SAT 93
--- NOTE | 2025-05-22 08:15 | CM.DPC ---
Addendum entered by SANTOSH Littlejohn 05/22/25 14:58: ADD: Per RN, pt's time of was 1305 today and family was bedside and body to be collected. Updated [facility] Original Note: DCP Imminent Per RN, pt's respirations very minimal this AM and anticipate pt to in the next hour and pt was changed to DNR overnight and RN calling brother/family now to inform them. SW updated [facility] as pt likely to here at the hospital today. SW to follow closely. SANTOSH Littlejohn
[2025-05-22 08:57] VITALS: O2SAT 98
[2025-05-22 09:38] VITALS: BP 54/25; PULSE 49
--- NOTE | 2025-05-22 10:45 | PM.PN.IH.1 ---
Subjective Subjective Interval history: The pts BP plummeted this morning, and his breathing became significantly more agonal overnight. He is unresponsive this morning. His brother and [id number] are at bedside. Exam Vital Signs (past 8 hours): - 05/22/25 04:48 05/22/25 08:00 05/22/25 08:00 Temperature 96.0 F L Pulse Rate 54 L Respiratory Rate 11 L Blood Pressure 49/22 L Pulse Oximetry 94 93 Oxygen Delivery Method Oximask Oximask Oxygen Flow Rate 5 3 Fraction of Inspired Oxygen 40 05/22/25 08:57 05/22/25 09:38 Temperature Pulse Rate 49 L Respiratory Rate Blood Pressure 54/25 L Pulse Oximetry 98 Oxygen Delivery Method Oximask Oxygen Flow Rate 4 Fraction of Inspired Oxygen Fraction of Inspired Oxygen 40 SaO2/FiO2 Ratio 235 Oxygen Delivery Method Oximask Oxygen Flow Rate 4 Narrative Exam Narrative: Gen: NAD, agonal breathing, nonresponsive to questions Objective Labs 05/22/25 04:21 05/22/25 04:21 Labs: Laboratory Results - last 24 hr 05/21/25 05/21/25 05/21/25 12:04 18:39 20:56 WBC RBC Hgb Hct MCV MCH MCHC RDW Plt Count Neut % (Auto) Lymph % (Auto) [place] % (Auto) Eos % (Auto) Baso % (Auto) Neut # (Auto) Lymph # (Auto) [place] # (Auto) Eos # (Auto) Baso # (Auto) Sodium Potassium Chloride Carbon Dioxide BUN Creatinine Estimated GFR BUN/Creatinine Ratio Glucose POC Whole Bld Glucose 101 H 109 H 133 H Calcium 05/22/25 05/22/25 05/22/25 02:57 04:21 07:40 WBC 7.5 RBC 3.39 L Hgb 9.5 L Hct 29.9 L MCV 88.3 MCH 28.2 MCHC 31.9 RDW 16.3 H Plt Count 137 L Neut % (Auto) 79.6 H D Lymph % (Auto) 11.1 L D [place] % (Auto) 7.5 Eos % (Auto) 1.5 L Baso % (Auto) 0.3 Neut # (Auto) 5900 Lymph # (Auto) 800 L [place] # (Auto) 600 Eos # (Auto) 100 Baso # (Auto) 0 Sodium 147 H Potassium 4.2 Chloride 109 H Carbon Dioxide 33 H BUN 11 Creatinine 1.51 H Estimated GFR 47 L BUN/Creatinine Ratio 7.3 Glucose 163 H POC Whole Bld Glucose 161 H 148 H Calcium 10.1 PFSH Medical History (Updated 05/18/25 @ 13:30 by Koko Urban MD) Paroxysmal atrial fibrillation with rapid ventricular response Schizophrenia in full remission with history of multiple episodes Surgical History Anesthesia Status post hernia repair (~2005) Status post appendectomy Family History Father History of heart disease Stroke Mother History of heart disease Stroke Grandfather History of heart disease Grandmother Stroke Grandfather History of heart disease Grandmother Cancer Social History household members: spouse Smoking Status: Smoker, status unknown alcohol intake: never Assessment & Plan Assessment and plan (1) Aspiration pneumonia: Qualifiers: Aspiration pneumonia type: unspecified Laterality: bilateral Lung location: lower lobe of lung Qualified Code(s): J69.0 - Pneumonitis due to inhalation of food and vomit Status: Acute (2) At high risk for aspiration: Status: Acute (3) Occipital cerebral infarction: Status: Acute (4) Anemia: Qualifiers: Anemia type: unspecified type Qualified Code(s): D64.9 - Anemia, unspecified Status: Acute (5) Paroxysmal atrial fibrillation: Status: Chronic (6) Essential hypertension: Status: Chronic (7) Hyponatremia: Status: Acute (8) JANIE (acute kidney injury): Status: Acute (9) Type 2 diabetes, diet controlled: Problem details: 07/10/2023: A1 6.4% (previous 6.2% 03/19/2022) Status: Acute (10) Developmental disorder of scholastic skills, unspecified: Status: Chronic (11) Benign prostatic hyperplasia with lower urinary tract symptoms: Qualifiers: Lower urinary tract symptom detail: nocturia Qualified Code(s): N40.1 - Benign prostatic hyperplasia with lower urinary tract symptoms; R35.1 - Nocturia Status: Chronic (12) Gout, arthritis: Status: Chronic Assessment & Plan narrative: 79-year-old male with PAF, HTN, T2DM, developmental delay admitted for aspiration pneumonia in context of recent choking event. Pt was treated for aspiration pneumonia, and speech therapy determined that pt was too high an aspiration risk for any PO diet. PEG tube was placed on 05/19 without complications. On 05/21 the pts breathing became significantly more labored, and he was much less responsive than previously. CXR revealed no significant findings. After discussion with his brother, the decision was made to change him to DNR status. He was in agreement with morphine for labored breathing. Overnight, the pt required 4 doses of morphine. This morning, the pt was noted to be critically hypotensive. His brother and [id number] are now at bedside, and understand his poor prognosis and imminent . They would like to continue his IVF and PEG tube feeds for now, but may discontinue later today. Continue oxygen. Will continue to monitor closely. Plan to hold all normal daily medications through the PEG tube at this time. Time-Based Coding :: 40 spent with patient and on the chart (including review of chart, obtaining history, exam, reviewing outside data, placing orders, documenting exam and treatment plan, and counseling patient) on 05/22. [employer] Document charge(s): Yes Charge Codes Subsequent inpatient/observation care: [id number]
[2025-05-22] MEDS: MORPHINE 4 MG/ML INJ IV (11:42)
--- NOTE | 2025-05-22 13:37 | PM.DDS.1 ---
Discharge Summary History of Illness Narrative: 79-year-old male with PAF, HTN, T2DM, developmental delay. Brought in by ambulance from residence ([facility]) due to coughing fits at dinner last night with concerns/suspicion for aspiration. Limited history as patient is unaccompanied and only able to give simple yes/no answers. Denies significant pain, difficulty breathing, nausea, headache, fever. Labs notable for WBC 7.5 w/left shift, hgb 7.9, MCV 83.9, sodium 125, BUN 27, creatinine 1.6, GFR 44, glucose 121, procalcitonin 0.240; remainder of CBC, CMP without significant derangements. CXR shows right mid lung and left lower lobe opacification consistent with pneumonia or aspiration. CC chest demonstrates infiltrates within dependent portions of lungs right > left. CT head notable for subacute to chronic right occipital infarct which is new from previous exam on 08/06/24, otherwise advanced atrophy and chronic ischemic change without acute hemorrhage or mass effect. Hospital Course Date of Admission: 05/14/25 15:10 Date of : 05/22/25 Primary care provider: Koko Urban MD Consults: 05/14/25 17:12 Consult to Speech Therapy Evaluate & Treat Comment: Aspiration PNA, needs swallow evaluation Physician Instructions: Evaluate and treat 05/16/25 10:49 Consult to Speech Therapy Evaluate & Treat Comment: Physician Instructions: Evaluate and treat 05/18/25 13:27 Consult to Occupational Therapy Evaluate & Treat Comment: SLUMS Physician Instructions: Evaluate and treat 05/18/25 15:59 Consult to Pharmacy Routine Comment: fall risk 05/20/25 11:58 Consult to Dietitian, Adult Routine Comment: Reason For Exam: PEG tube feeds Discharge provider: Felicity Cardenas MD Discharge Diagnosis: Aspiration PNA High aspiration risk New subacute/chronic R occipital lobe infarct Anemia normocytic acute on chronic PAF Hypertension Hyperatremia Hypokalemia Hypomagnesemia JANIE Diabetes Developmental disorder BPH Gout Hospital Course: The pt was admitted with aspiration pneumonia. This was treated appropriately with antibiotics. Swallow study was completed, and it was determined that the pt could not tolerate any PO due to very high aspiration risk. After discussion with his brother, the decision was made to proceed with PEG tube placement. The surgery was without complications. On 05/21, the pt declined significantly. CXR did not show any recurrent pneumonia, however his respiratory status deteriorated quickly. Scopolamine was utilized to help manage his secretions. The decision was made to gradually transition him to more comfort measures with morphine. The pt at 13:05. Objective Labs 05/22/25 04:21 05/22/25 04:21 Labs: Laboratory Results - last 24 hr 05/21/25 05/21/25 05/22/25 18:39 20:56 02:57 WBC RBC Hgb Hct MCV MCH MCHC RDW Plt Count Neut % (Auto) Lymph % (Auto) [place] % (Auto) Eos % (Auto) Baso % (Auto) Neut # (Auto) Lymph # (Auto) [place] # (Auto) Eos # (Auto) Baso # (Auto) Sodium Potassium Chloride Carbon Dioxide BUN Creatinine Estimated GFR BUN/Creatinine Ratio Glucose POC Whole Bld Glucose 109 H 133 H 161 H Calcium 05/22/25 05/22/25 04:21 07:40 WBC 7.5 RBC 3.39 L Hgb 9.5 L Hct 29.9 L MCV 88.3 MCH 28.2 MCHC 31.9 RDW 16.3 H Plt Count 137 L Neut % (Auto) 79.6 H D Lymph % (Auto) 11.1 L D [place] % (Auto) 7.5 Eos % (Auto) 1.5 L Baso % (Auto) 0.3 Neut # (Auto) 5900 Lymph # (Auto) 800 L [place] # (Auto) 600 Eos # (Auto) 100 Baso # (Auto) 0 Sodium 147 H Potassium 4.2 Chloride 109 H Carbon Dioxide 33 H BUN 11 Creatinine 1.51 H Estimated GFR 47 L BUN/Creatinine Ratio 7.3 Glucose 163 H POC Whole Bld Glucose 148 H Calcium 10.1
== END 2025-05-22 13:05 | disposition expired | DRG 177 ==
LOC: ED 14:29 → AC 15:11
PROVIDERS: Family Medicine; Internal Medicine; Pharmacist Pharmacist Clinician (PhC)/ Clinical Pharmacy Specialist; Surgery; Admitting Provider Family Medicine; Emergency Provider Emergency Medicine; PCP Family Medicine; Referring Provider Emergency Medicine; Visit Provider Family Medicine
PROC: 0DH63UZ Insertion of Feeding Device into Stomach, Percutaneous Approach (ICD-10-PCS; CPT 43246; principal; 2025-05-20 09:00)
DX: J69.0 Pneumonitis due to inhalation of food and vomit (principal); I63.9 Cerebral infarction, unspecified; E87.1 Hypo-osmolality and hyponatremia; N17.9 Acute kidney failure, unspecified; D64.9 Anemia, unspecified; I48.0 Paroxysmal atrial fibrillation; I10 Essential (primary) hypertension; E11.9 Type 2 diabetes mellitus without complications; R62.59 Other lack of expected normal physiological development in childhood; F51.05 Insomnia due to other mental disorder; F99 Mental disorder, not otherwise specified; N40.1 Benign prostatic hyperplasia with lower urinary tract symptoms; R35.1 Nocturia; M1A.9XX0 Chronic gout, unspecified, without tophus (tophi); T17.928A Food in respiratory tract, part unspecified causing other injury, initial encounter; R13.11 Dysphagia, oral phase; R13.13 Dysphagia, pharyngeal phase; E87.6 Hypokalemia; E83.42 Hypomagnesemia; R79.89 Other specified abnormal findings of blood chemistry; I95.9 Hypotension, unspecified; R06.4 Hyperventilation; W44.F3XA Food entering into or through a natural orifice, initial encounter; Z79.01 Long term (current) use of anticoagulants; Z66 Do not resuscitate; Z51.5 Encounter for palliative care
CPT/HCPCS: 36415; 36430; 70450; 71045; 71250; 74230; 80048; 80053; 81001; 82728; 82962; 83036; 83540; 83550; 83605; 83735; 84145; 85025; 86850; 86900; 86901; 87040; 87633; 92610; 92611; 93005; 93010; 94762; 96365; 96367; 97167; 99284; P9016; J0295; J0689; J0696; J1642; J1815; J1938; J2270; J2272; J2704; J3475; J7030; J7042; J7050; J7120; J7121